=== PATIENT | female | born 1940 | race Caucasian/White ===

== ENCOUNTER 2020-04-17 09:00 | Outpatient (REF) | payer MEDICARE, SELFPAY | END 2020-04-17 09:01 | disposition home or self-care (01) | LOC: HO.HAP 09:00 | PROVIDERS: Visit Provider Internal Medicine | DX: Z46.1 Encounter for fitting and adjustment of hearing aid (principal) | CPT/HCPCS: 92593; 99499 ==

== ENCOUNTER 2020-07-10 09:00 | Outpatient (REF) | payer MEDICARE, SELFPAY ==
--- NOTE | 2020-07-10 11:16 | MHC.AU.P13 ---
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 Previous Hearing Test Results: Symmetrical normal hearing thresholds at 250-1000 Hz dropping to a severe high frequency sensorineural hearing loss bilaterally with 92% speech understanding for the right ear and 96% for the left ear at 60 dB HL for both ears. Medical History: Medical History: Diabetes Heart Problems High Blood Pressure Medical History: Since tested in 2019, Zoey reports she has one ablation and 2 cardiversion procedures performed. Medication List: Amiodarone, Colace, Eliquis, Furosemide, Glipizide, Ramipril, Rosuvastatin, Vitamin B-12 Hearing Instrument History- Right Ear: Workers Compensation Manager: Phonak Model: Audejaja.tv [id number] Serial Number: [id number] Battery Size: 312 Warranty: 06/23/2022 Service Plan: Repair and L&D Dispensed By: [facility] Date of Fittin03/28/2019 Hearing Instrument History- Left Ear: Workers Compensation Manager: [employer]ria Systemsak Model: Pathway Lendingeo [id number] Serial Number: [id number] Battery Size: 312 Warranty: 06/23/2022 Service Plan: Repair and L&D Dispensed By: [facility] Date of Fittin03/28/2019 Otoscopy: Right Ear: Unremarkable Left Ear: Unremarkable Tympanometry: Right Ear: Normal Middle Ear System (Type A) Left Ear: Hypercompliant Middle Ear System (Type Ad) Hearing Evaluation: Transducer(s) Used: Insert Earphones Bone Conduction Method: Conventional Audiometry Stimuli Used: Pure Tones Right Ear: Description of Hearing: Normal/borderline normal hearing thresholds at 250-1000 Hz dropping to a severe high frequency sensorineural hearing loss. Left Ear: Description of Hearing: Normal/borderline normal thresholds at 250-1000 Hz dropping to a severe high frequency sensorineural hearing loss Speech Recognition Threshold (SRT): Method Used: Monitored Live Voice Stimuli Used: Spondee Words Right Ear: 30 dB HL Left Ear: 20 dB HL Word Discrimination: Method: Recorded Lists Word Lists Used: NU-6 Right Ear: 96% at 70 dB HL Left Ear: 92% at 60 dB HL Comparison: Compared to most recent evaluation: Right ear thresholds have decreased approximately 10 dB Left ear thresholds overall stable Recommendations: Recommendations: Audiological re-evaluation in one year. Hearing aid(s) reprogrammed with updated test results. Diagnosis: Primary Diagnosis: H90.3 Bilateral Sensorineural Hearing Loss Services Performed: Services Performed: Comprehensive Audiological Evaluation (CPT 20063) Tympanometry (CPT 79048) Signature: Provider: Jan Barrera, RONN-A
== END 2020-07-10 09:01 | disposition home or self-care (01) ==
LOC: HO.SH 09:00
PROVIDERS: Visit Provider Internal Medicine
DX: H90.3 Sensorineural hearing loss, bilateral (principal)
CPT/HCPCS: 92557; 92567

== ENCOUNTER 2020-08-26 14:22 | Outpatient (REF) | payer MEDICARE, SELFPAY | END 2020-08-26 14:23 | disposition home or self-care (01) | LOC: HO.HAP 14:22 | PROVIDERS: Visit Provider Internal Medicine | DX: Z13.89 Encounter for screening for other disorder (principal) ==

== ENCOUNTER 2021-03-26 15:40 | Emergency (ER) | payer MEDICARE, SELFPAY ==
--- NOTE | ~2021-03-26 | XR_ITS ---
EXAMINATION: XR KNEE, RIGHT CLINICAL INFORMATION: Injury, twisted knee COMPARISON: None TECHNIQUE: Four views of the right knee. FINDINGS: Bone alignment is normal. No fracture or dislocation is seen. There is arthritis at the medial femoral tibial and patellofemoral joints with joint space narrowing and osteophyte formation. There is a moderate to large joint effusion. XR/XR knee RT 3V IMPRESSION: Arthritis and joint effusion.
[2021-03-26 15:54] VITALS: BP 148/72; BP 151/67; PULSE 70; PULSE 71; RESP 16; TEMP 36.2; O2SAT 97; O2SAT 98; BMI 31.3
--- NOTE | 2021-03-26 16:18 | ED.LOWEXIN ---
HPI - Extremity Injury (Lower) General Chief Complaint: Extremity Injury, Lower <Manju Lemonsdb MICHEL - Last Filed: 03/26/21 21:12> Stated Complaint: r knee pain <Manju Lemonsdb ACCOUNTING MACHINE SERVICERKAYLA - Last Filed: 03/26/21 21:12> Time Seen by Provider: 03/26/21 16:13 <Manju D DominiqueCHUCK aceKAYLA - Last Filed: 03/26/21 21:12> Source: patient <Manju Fox MICHEL - Last Filed: 03/26/21 21:12> Mode of arrival: EMS <Manju Lemonsdb MICHEL - Last Filed: 03/26/21 21:12> Limitations: no limitations <Manju Lemonsdb MICHEL - Last Filed: 03/26/21 21:12> History of Present Illness HPI Narrative: 80-year-old female with past medical history of diabetes, atrial fibrillation, hypertension, hyperlipidemia is here today after sustaining right knee injury. Patient reports that she was trying to get out of bed and she twisted her right leg at her knee patient denies falling, denies any other injury. She was trying to ice the area for few hours. Two extra-strength Tylenol for pain. Denies falling. <Manju Lemonsdb MICHEL - Last Filed: 03/26/21 21:12> Related Data Home Medications: Home Medications Medication Instructions Recorded Confirmed amiodarone 200 mg tablet 100 mg PO DAILY 03/26/21 03/26/21 apixaban 5 mg tablet (Eliquis) 1 tab PO BID 03/26/21 03/26/21 cyanocobalamin (vitamin B-12) 500 500 mcg PO DAILY 03/26/21 03/26/21 mcg lozenges (Vitamin B-12) docusate sodium 100 mg capsule 100 mg PO DAILY PRN 03/26/21 03/26/21 (Colace) eszopiclone 2 mg tablet 1 tab PO BEDTIME 03/26/21 03/26/21 furosemide 20 mg tablet 1 tab PO DAILY 03/26/21 03/26/21 furosemide 40 mg tablet 1 tab PO DAILY 03/26/21 03/26/21 glipizide 2.5 mg tablet, extended 1 tab PO DAILY 03/26/21 03/26/21 release 24 hr ramipril 2.5 mg capsule 1 cap PO DAILY 03/26/21 03/26/21 rosuvastatin 5 mg tablet 1 tab PO DAILY 03/26/21 03/26/21 <MICHEL Quinn - Last Filed: 03/26/21 21:12> Allergies/Adverse Reactions: Allergies Allergy/AdvReac Type Severity Reaction Status Date / Time meperidine [From DEMEROL] Allergy Unknown RASH Unverified 03/12/20 17:56 metformin [METFORMIN] Allergy Unknown DIARRHEA Unverified 03/12/20 17:56 demerol Allergy Unknown itching Uncoded 09/10/19 00:00 metformin Allergy Unknown vomiting Uncoded 09/10/19 00:00 <MICHEL Quinn - Last Filed: 03/26/21 21:12> Review of Systems Review of Systems: Constitutional : No Weight loss, No Fever, No Chills, No Night Sweats, No Fatigue, No Malaise ENT/Mouth : No Hearing loss, No Ear Pain, No Nasal Congestion, No Sinus Pain, No Hoarseness, No sore throat, No Rhinorrhea, No Swallowing Difficulty Eyes: No Eye Pain, No Swelling, No Redness, No Foreign Body, No Discharge, No Vision Changes Cardiovascular : No Chest Pain, No SOB, No Dyspnea on Exertion, No Orthopnea, No Edema, No Palpitations Respiratory : No Cough, No Sputum, No Wheezing, No Smoke Exposure, No Dyspnea Gastrointestinal : No Nausea, No Vomiting, No Diarrhea, No Constipation, No abdominal Pain, No Hematochezia, No Melena Genitourinary : no irregular bleeding, No Dysuria, No Urinary Frequency, No Hematuria, No Urinary Incontinence, No Urgency, No Flank Pain, No Urinary Flow Changes, No Hesitancy Musculoskeletal : No joint pain, No Myalgias, No Joint Swelling Skin : No Skin Lesions, No rash Neuro : No Weakness, No Numbness, No Paresthesias, No Loss of Consciousness, No Dizziness, No Headache <MICHEL Quinn - Last Filed: 03/26/21 21:12> Yes all other systems are reviewed and are negative <MICHEL Quinn - Last Filed: 03/26/21 21:12> PMFSH Past Medical History Medical History: Medical History (Updated 03/26/21 @ 21:11 by MICHEL Quinn) Afib Diabetes HTN (hypertension) <MICHEL Quinn - Last Filed: 03/26/21 21:12> Social History Social History: Social History Advance Directives: No Advance Directives Information Provided: No <MICHEL Quinn - Last Filed: 03/26/21 21:12> Physical Exam Vital Signs: Vital Signs: Last Vital Signs Temp 98.7 F 03/27/21 00:52 Pulse 76 03/27/21 05:56 Resp 16 03/27/21 05:56 BP 133/43 L 03/27/21 05:56 Pulse Ox 94 03/27/21 05:56 Body Mass Index 31.3 <MICHEL Quinn - Last Filed: 03/26/21 21:12> Vital Signs: Last Vital Signs Temp 98.7 F 03/27/21 00:52 Pulse 76 03/27/21 05:56 Resp 16 03/27/21 05:56 BP 133/43 L 03/27/21 05:56 Pulse Ox 94 03/27/21 05:56 Body Mass Index 31.3 <Cuca Figueroa DO - Last Filed: 03/27/21 07:20> Const: General: healthy appearing, no acute distress and well developed <MICHEL Quinn - Last Filed: 03/26/21 21:12> Nutritional Appearance: well nourished <MICHEL Quinn - Last Filed: 03/26/21 21:12> Orientation/consciousness: patient oriented x3 <MICHEL Quinn - Last Filed: 03/26/21 21:12> HENMT: Head: Yes normal to inspection, Yes normocephalic and Yes atraumatic <MICHEL Quinn - Last Filed: 03/26/21 21:12> Neck: Neck: Yes normal visual inspection, Yes full ROM and Yes trachea midline <MICHEL Quinn - Last Filed: 03/26/21 21:12> Thyroid: Thyroid normal <MICHEL Quinn - Last Filed: 03/26/21 21:12> Resp: Effort & Inspection: normal respiratory effort and able to speak in complete sentences <MICHEL Quinn - Last Filed: 03/26/21 21:12> Auscultation: clear to auscultation bilaterally <MICHEL Quinn - Last Filed: 03/26/21 21:12> Cardio: Rate: regular rate <MICHEL Quinn - Last Filed: 03/26/21 21:12> Rhythm: regular rhythm <MICHEL Quinn - Last Filed: 03/26/21 21:12> GI: Inspection: Yes normal to inspection and No distended <MICHEL Quinn - Last Filed: 03/26/21 21:12> Palpation (GI): No hepatosplenomegaly present <MICHEL Quinn - Last Filed: 03/26/21 21:12> Auscultation: normal bowel sounds <MICHEL Quinn - Last Filed: 03/26/21 21:12> Skin: General skin exam: elasticity normal, turgor normal and dry skin <MICHEL Quinn - Last Filed: 03/26/21 21:12> Neuro: General: patient oriented x3 <MICHEL Quinn - Last Filed: 03/26/21 21:12> Extrem: General: Yes normal to inspection, Yes full ROM and Yes capillary refill normal <MICHEL Quinn - Last Filed: 03/26/21 21:12> Course Course Course Narrative: 80-year-old female with past medical history of diabetes, AFib, hypertension, hyperlipidemia is here today after sustaining injury to her right knee. Patient reports that she was trying to get out of bed to go to the bathroom and she twisted her right leg. Patient reports that she is unable to bear any weight. Upon exam patient has normal passive ROM to her right knee. Reports pain and unable to stand up on her right leg. Will do x-ray and medicate her for pain. <CHUCK Quinn-PETRA Last Filed: 03/26/21 21:12> Reevaluation(s) Reevaluation #1: Right knee x-ray IMPRESSION: Arthritis and joint effusion. Will have patient to trial walk. If she is able we will send her back, however if she is unable to walk will have her be evaluated by physical therapy in the morning for short-term rehab. Case Management is aware <CHUCK QuinnKAYLA - Last Filed: 03/26/21 21:12> Reevaluation #2: Tried ambulating patient and patient has too much pain will place Keaton wrap and patient will see case management, order for PT eval placed. Patient needs to have medication reconciled so she can get her medication while she is waiting for PT eval. Patient was placed recliner. She is agreeable to this and is willing to go to short-term rehab. Report given to Dr. Whitlock <CHUCK QuinnPETRA - Last Filed: 03/26/21 21:12> MDM - Extremity Injury (Lower) Imaging Data R knee pain: Attestation: I personally reviewed and interpreted this imaging study as follows: <MICHEL Quinn Last Filed: 03/26/21 21:12> Radiologist's impression: FINDINGS: Bone alignment is normal. No fracture or dislocation is seen. There is arthritis at the medial femoral tibial and patellofemoral joints with joint space narrowing and osteophyte formation. There is a moderate to large joint effusion.? <CHUCK Quinn-PETRA - Last Filed: 03/26/21 21:12> Discharge Plan Discharge Clinical Impression: Effusion of knee joint right <CHUCK Quinn-PETRA Last Filed: 03/26/21 21:12> Prescriptions: No [facility] furosemide 40 mg tablet 1 tab PO DAILY RF: 0 amiodarone 200 mg tablet 100 mg PO DAILY RF: 0 glipizide 2.5 mg tablet extended release 24hr 1 tab PO DAILY RF: 0 ramipril 2.5 mg capsule 1 cap PO DAILY RF: 0 docusate sodium [Colace] 100 mg Capsule 100 mg PO DAILY PRN (Reason: Constipation) RF: 0 furosemide 20 mg tablet 1 tab PO DAILY RF: 0 rosuvastatin 5 mg tablet 1 tab PO DAILY RF: 0 eszopiclone 2 mg tablet 1 tab PO BEDTIME RF: 0 cyanocobalamin (vitamin B-12) [Vitamin B-12] 500 mcg Lozenge 500 mcg PO DAILY RF: 0 Eliquis 5 mg tablet 1 tab PO BID RF: 0 <MICHEL Quinn - Last Filed: 03/26/21 21:12> Referrals: Moshe Snider MD [Primary Care Provider] - 2 days <MICHEL Quinn - Last Filed: 03/26/21 21:12>
[2021-03-26] MEDS: oxyCODONE HCl Immed Release 5 MG TABLET PO ×2 (16:25→22:47)
--- NOTE | 2021-03-26 18:15 | PC.NURSE ---
pt unable to ambulate do to pain and living alone plan will be for case management to get involved and have pt eval by PT/OT.
--- NOTE | 2021-03-26 18:44 | PHA.MEDREC ---
Pharmacy Consult ? Medication Reconciliation Pharmacy has completed the medication reconciliation spoke with patient in [facility]. Pt had list of medications. patient takes 1/2 tablet of amiodarone 200 mg daily.
--- NOTE | 2021-03-26 21:50 | MHC.CM.ED ---
CM met with this kyle woman, A&Ox3, very pleasant and independent. Pt lives alone in independent living at [facility]. 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 Pt has no services and occasionally uses a cane/rollator. PT evaluation is pending. Pt slipped and is unable to bear weight on her R leg secondary to knee pain. Pt is agreeable to [facility], [facility]2 [facility] and #3 [facility]. Pt will NOT go to [facility]. HCP on file. HCP/friend Sister Annalise Tovar ([phone]) and the alternate HCP/sister is Odalispola Oshea ([phone]). Referrals have been placed. CM to follow for d/c needs.
--- NOTE | 2021-03-26 22:41 | PC.NURSE ---
PER DR KAPLAN PT MAY GET 1 X DOSE OF OXYCODONE 5MG IT WAS EFFECT DURING HER LAST DOSE. PT REQUESTING TO HOLD HER PM SLEEPING PILL AND WANT PAIN MED INSTEAD.
[2021-03-26] MEDS: Apixaban 5 MG TABLET PO (22:48)
[2021-03-26 23:36] VITALS: BP 131/68; PULSE 70; RESP 14; O2SAT 97
--- NOTE | 2021-03-27 00:39 | PC.NURSE ---
PT MOVED OVER TO MAIN ED REQUESTING TO SLEEP IN RECLINER CHAIR REPORT GIVEN TO MARION RUANO.
[2021-03-27 00:52] VITALS: BP 138/46; PULSE 71; TEMP 37.1; O2SAT 93
[2021-03-27 05:56] VITALS: BP 133/43; PULSE 76; RESP 16; O2SAT 94
[2021-03-27] MEDS: Apixaban 5 MG TABLET PO (08:34)
[2021-03-27] MEDS: Acetaminophen 325 MG TABLET 650 MG PO (08:34)
[2021-03-27] MEDS: Atorvastatin Calcium 20 MG TABLET PO (08:34)
[2021-03-27] MEDS: Amiodarone HCL 200 MG TABLET 100 MG PO (08:34)
[2021-03-27] MEDS: lisinopriL 10 MG TABLET PO (08:35)
[2021-03-27] MEDS: Furosemide 20 MG TABLET PO (08:35)
[2021-03-27] MEDS: Furosemide 40 MG TABLET PO (08:35)
[2021-03-27 08:38] VITALS: BP 124/42; PULSE 75; RESP 15; O2SAT 95
[2021-03-27] MEDS: glipiZIDE XL 2.5 MG TAB.ER.24 PO (09:15)
[2021-03-27] MEDS: Cyanocobalamin (Vitamin B-12) 500 MCG TABLET PO (09:15)
--- NOTE | 2021-03-27 11:07 | MHC.CM.ED ---
Pt has been accepted to [facility] per MARION Cohen at facility. Pt aware and in agreement with dc plan: [facility] booked for 2pm p/u. ED staff aware of transfer. Pt will be in bed 1 at the [facility].
--- NOTE | 2021-03-27 11:18 | PC.NURSE ---
Assumed care of patient at 7am this morning. Pt sitting in a chair, which is more comfortable for the patient due to right knee swelling. Pt at breakfast and tolerated PO intake well. Pt given morning medications. PT worked with the pt and she is able to ambulate with a walker short distances. Pt brought to the bathroom multiple times. Pt has been cleared to go to [facility] today at 2pm.
[2021-03-27 13:18] VITALS: BP 109/50; PULSE 78; RESP 15; TEMP 37.1; O2SAT 97
[2021-03-27 16:56] VITALS: BP 134/54; PULSE 76; RESP 20; TEMP 37; O2SAT 97
--- NOTE | 2021-03-27 18:05 | PC.NURSE ---
EMS is here for transport to [facility]. Pt able to eat dinner first. Report given earlier to MARION.
== END 2021-03-27 18:07 | disposition skilled nursing facility (03) ==
PROVIDERS: Emergency Provider Emergency Medicine Emergency Medical Services; PCP Internal Medicine
DX: S89.91XA Unspecified injury of right lower leg, initial encounter (principal); M79.604 Pain in right leg; E11.9 Type 2 diabetes mellitus without complications; I10 Essential (primary) hypertension; X50.1XXA Overexertion from prolonged static or awkward postures, initial encounter; Y93.9 Activity, unspecified; Y92.9 Unspecified place or not applicable; Y99.9 Unspecified external cause status; Z79.899 Other long term (current) drug therapy
CPT/HCPCS: 73562; 97161; 99284; 99285

== ENCOUNTER 2021-05-23 23:39 | Inpatient (IN) | payer MEDICARE, SELFPAY ==
--- NOTE | ~2021-05-23 | XR_ITS ---
EXAMINATION: XR LUMBAR SPINE XR PELVIS CLINICAL INFORMATION: History of fall COMPARISON: Radiograph of pelvis/hip from 09/02/2019 TECHNIQUE: Lumbar spine, 3 views Pelvis, AP view FINDINGS: Lumbar spine: The lumbar vertebra have well preserved height and alignment. No acute fracture or subluxation. There is mild narrowing of disc space at L5-S1. There appears to be moderate to severe facet arthropathy at L4-L5 and L5-S1. Sacrum and sacroiliac joints are intact. Bilateral ureteral stents in place. Bowel gas pattern is normal. Pelvis: The osseous pelvic ring is intact. Alignment is maintained at the pubic symphysis, hips and sacroiliac joints. The sacrum is partially obscured by bowel gas and fecal material. No overt sacral fracture. No diastases and sacroiliac joints. Old healed fractures of left pubic rami. No acute fractures. The articular cartilage space of each hip is maintained. The alignment is normal at each hip. No proximal femoral fracture. XR/XR pelvis 1-2V IMPRESSION: * No acute abnormalities in the degenerated spine. The lumbar vertebra have well preserved height and alignment. * Old, healed fractures of the left pubic rami.
--- NOTE | ~2021-05-23 | XR_ITS ---
EXAMINATION: XR CHEST CLINICAL INFORMATION: Follow-up pneumonia COMPARISON: Chest CT on 05/24/2021 TECHNIQUE: 2 views of the chest were obtained. FINDINGS: Lung volumes are significantly diminished. There are trace bilateral pleural effusions. No significant change in the bilateral airspace opacities predominantly in the right upper lobe and left lower lobe. XR/XR chest 2V IMPRESSION: No significant change.
--- NOTE | ~2021-05-23 | CT_ITS ---
EXAMINATION: NONCONTRAST HEAD CT NONCONTRAST CERVICAL SPINE CT INDICATION INFORMATION: Fall, pain COMPARISON: None TECHNIQUE: Separate noncontrast CT examinations of the head and cervical spine were performed. Coronal head CT images and coronal and sagittal cervical spine images were created at the technologist workstation. DLP: 1886 mGy-cm DOSE LOWERING TECHNIQUES: This CT examination was performed using dose optimization techniques as appropriate, variously including the following: - Automated exposure control - Adjustment of mA and/or kV according to patient size (this includes techniques or standardized protocols for targeted exams were dose is matched to indication/reason for exam; i.e. extremities or head) - Use of iterative reconstruction technique FINDINGS: Head: Limited evaluation in some regions due to motion artifact. There is no appreciable evidence of acute intracranial hemorrhage or territorial infarction. No abnormal mass-effect or midline shift is seen. Mckeon to white matter differentiation is well preserved. No extra-axial fluid collections are identified. The ventricles are normal in size. There is mild periventricular white matter hypoattenuation consistent with chronic small vessel ischemic disease. The osseous structures and soft tissues are normal. The mastoid air cells and visualized portions of the paranasal sinuses are well-aerated. Cervical spine: Limited evaluation throughout the cervical spine due to motion artifact There is anatomic alignment of the vertebral bodies and posterior elements. Vertebral body heights are maintained. Intervertebral disc spaces are relatively well preserved. There is mild to moderate bilateral facet arthropathy. No appreciable acute fracture. No prevertebral soft tissue swelling. Visualized portions of the lung apices demonstrate bilateral opacities which will be better assessed on dedicated chest CT. The thyroid gland is unremarkable. CT/CT cervical spine wo con IMPRESSION: Limited evaluation of the head and cervical spine due to motion artifact. No definite acute findings identified.
--- NOTE | ~2021-05-23 | XR_ITS ---
EXAMINATION: XR LUMBAR SPINE XR PELVIS CLINICAL INFORMATION: History of fall COMPARISON: Radiograph of pelvis/hip from 09/02/2019 TECHNIQUE: Lumbar spine, 3 views Pelvis, AP view FINDINGS: Lumbar spine: The lumbar vertebra have well preserved height and alignment. No acute fracture or subluxation. There is mild narrowing of disc space at L5-S1. There appears to be moderate to severe facet arthropathy at L4-L5 and L5-S1. Sacrum and sacroiliac joints are intact. Bilateral ureteral stents in place. Bowel gas pattern is normal. Pelvis: The osseous pelvic ring is intact. Alignment is maintained at the pubic symphysis, hips and sacroiliac joints. The sacrum is partially obscured by bowel gas and fecal material. No overt sacral fracture. No diastases and sacroiliac joints. Old healed fractures of left pubic rami. No acute fractures. The articular cartilage space of each hip is maintained. The alignment is normal at each hip. No proximal femoral fracture. XR/XR lumbar spine 2-3V IMPRESSION: * No acute abnormalities in the degenerated spine. The lumbar vertebra have well preserved height and alignment. * Old, healed fractures of the left pubic rami.
--- NOTE | ~2021-05-23 | CT_ITS ---
EXAMINATION: CT CHEST WITHOUT CONTRAST CLINICAL INFORMATION: Fall, pain COMPARISON: Chest x-ray 07/05/2011 TECHNIQUE: Multidetector volumetric CT imaging of the chest was done. Axial MIP volume rendering provided. Sagittal and coronal reformatted images were obtained. This CT examination was performed using dose optimization techniques as appropriate, variously including the following: *Automated exposure control *Adjustment of mA and/or kV according to patient size (this includes techniques or standardized protocols for targeted exams where dose is matched to indication/reason for exam; i.e. extremities or head) *Use of iterative reconstruction technique DLP: 1886 mGy-cm FINDINGS: LUNGS: There is significantly limited detailed evaluation of the lung parenchyma due to respiratory motion artifact. There are multifocal patchy regions of opacity bilaterally most extensively in the bilateral upper lobes and superior left lower lobe. MEDIASTINUM: Thyroid gland is grossly unremarkable. Moderate-sized hiatal hernia is suspected. No discrete mediastinal lymphadenopathy is seen, though assessment is limited due to motion and lack of intravenous contrast. Cardiac size is within normal limits; no pericardial effusion. There is scattered calcification along the aorta. PLEURA: Trace right pleural effusion is suspected. Limited assessment for pneumothoraces in the setting of extensive motion artifact. AXILLA: No lymphadenopathy. UPPER ABDOMEN: Significantly limited evaluation due to extensive motion artifact. Cholelithiasis is suspected. OSSEOUS STRUCTURES: Significantly limited assessment for fractures due to extensive motion artifact. Degenerative changes are noted in the spine. CT/CT chest wo con IMPRESSION: Limited evaluation due to extensive motion artifact. Multifocal bilateral pulmonary opacities could be due to infection or aspiration in the proper clinical setting. Trace right pleural effusion. Fleischner guidelines were followed.
--- NOTE | ~2021-05-23 | US_ITS ---
EXAMINATION: US RETROPERITONEAL LIMITED (RENAL ONLY) CLINICAL INFORMATION: Urinary tract infection; recent hydronephrosis. COMPARISON: None TECHNIQUE: Real-time imaging of the kidneys. Color Doppler exam used. FINDINGS: Limited views of left kidney. Patient terminated study before complete exam. RIGHT KIDNEY: 10.1 x 5.6 x 5.5 cm (SAG x AP x TRV). The kidney is normal in size, contour, and echogenicity. Renal cortical thickness is normal. No renal calculi or hydronephrosis. 7 mm cortical cyst midpole right kidney. No follow-up imaging is recommended for simple renal cyst. LEFT KIDNEY: 9.9 x 5.7 x 5.8 cm (SAG x AP x TRV). The kidney is normal in size, contour, and echogenicity. Renal cortical thickness is normal. No renal calculi or focal parenchymal lesions. US/US renal BI IMPRESSION: Normal ultrasound of the kidneys..
[2021-05-24] VITALS (11 sets, daily range): BP systolic 111–153; BP diastolic 58–84; PULSE 69–100; RESP 14–23; TEMP 36–37.1; O2SAT 91–100; BMI 30.1
--- NOTE | 2021-05-24 00:40 | ED_ITS ---
HPI - Fall General Chief Complaint: Fall Stated Complaint: unwitnessed fall, probable head strike Time Seen by Provider: 05/24/21 00:25 Source: patient Mode of arrival: EMS History of Present Illness HPI Narrative: 80-year-old female is brought in by EMS from [facility] for an unwitnessed fall. Staff states that they heard the bed alarm go off and then found patient on the ground. On questioning the patient she states she is unclear what happened and denies loss of consciousness. Patient does states that she hit her head and on review of medication list appears to be on blood thinners. Related Data Home Medications Medication Instructions Recorded Confirmed amiodarone 200 mg tablet 100 mg PO DAILY 03/26/21 05/24/21 cyanocobalamin (vitamin B-12) 500 500 mcg PO DAILY 03/26/21 05/24/21 mcg lozenges (Vitamin B-12) docusate sodium 100 mg capsule 100 mg PO DAILY PRN 03/26/21 05/24/21 (Colace) eszopiclone 2 mg tablet 1 tab PO BEDTIME 03/26/21 05/24/21 furosemide 40 mg tablet 1 tab PO DAILY 03/26/21 05/24/21 ramipril 2.5 mg capsule 1 cap PO DAILY 03/26/21 05/24/21 rosuvastatin 5 mg tablet 1 tab PO DAILY 03/26/21 05/24/21 bumetanide 1 mg tablet 1 mg PO DAILY 05/24/21 05/24/21 Allergies Allergy/AdvReac Type Severity Reaction Status Date / Time meperidine [From DEMEROL] Allergy Unknown RASH Unverified 03/12/20 17:56 metformin [METFORMIN] Allergy Unknown DIARRHEA Unverified 03/12/20 17:56 demerol Allergy Unknown itching Uncoded 09/10/19 00:00 metformin Allergy Unknown vomiting Uncoded 09/10/19 00:00 Review of Systems Review of Systems: Pertinent positives and negatives as stated in HPI 10 point review of systems is otherwise negative. [facility] Past Medical History Source: nursing notes reviewed Medical History Afib Diabetes HTN (hypertension) Social History Social History Patient Tobacco Use Status: Tobacco use Unknown Advance Directives: No Physical Exam Vital Signs: Vital Signs: Last Vital Signs Temp 97.9 F 05/24/21 00:04 Pulse 85 05/24/21 00:04 Resp 18 05/24/21 00:04 BP 124/64 05/24/21 00:04 Pulse Ox 98 05/24/21 00:04 Body Mass Index 30.1 VITAL SIGNS: Reviewed. GENERAL: Well developed, well nourished, in no acute distress. HEAD: Normocephalic/atraumatic EYES: PERRLA, EOMI OROPHARYNX: no oral lesions noted, posterior pharynx clear, dry mucous NECK: C-collar in place, no tenderness to palpation at midline cervical spine LUNGS: Normal breath sounds. No adventitious sounds or accessory muscle use. SpO2<98> on nasal cannula, no chest wall tenderness CARDIOVASCULAR: Regular rate and rhythm without noted murmurs, no JVD or 2+ pitting bilat lower extremity edema. ABDOMEN: Soft, non-tender, non-distended with bowel sounds. No rigidity. No guarding. No palpable masses or hernias noted RUBINA: reddish brown stool, soft, no melena PELVIS: Patient denies any pain on manipulation of the pelvis MUSCULOSKELETAL: No tenderness, deformities, or effusions noted on gross inspection. EXTREMITIES: No cyanosis, clubbing or edema. SKIN: Inspection of the skin reveals no rashes NEUROLOGIC: Alert and oriented x 2. Strength and sensation to light touch were grossly intact x 4. Course Course Course Narrative: 80-year-old female with history and clinical presentation anticoagulation use and being brought in for unwitnessed fall. Limited recent documentation but lab work significant for CHF/diabetic/cardiac medications. Review of all investigations significant for anemia with guaiac-positive, CHF exacerbation for which patient will receive Lasix, sepsis with positive UTI as well as questionable infiltrates on CT of the chest. Patient received Zosyn. This case was discussed with the inpatient hospitalist who accepts admission. MDM - Fall Lab Data Result diagrams: 05/24/21 01:11 05/24/21 01:11 Labs: Lab Results 05/24/21 05/24/21 05/24/21 Range/Units 01:11 01:11 01:11 WBC 14.3 H (4.8-10.8) X10*3/uL RBC 2.83 L (4.20-5.50) X10*6/uL Hgb 7.5 L (12.0-16.0) g/dl Hct 26.0 L (37.0-47.0) % MCV 91.9 (80.0-98.0) fL MCH 26.5 L (27.0-33.0) pg MCHC 28.8 L (31.0-35.0) g/dl RDW 16.6 H (11.0-16.0) % Plt Count 304 (160-400) X10*3/uL MPV 8.7 L (9.4-12.3) fL Immature Gran % (Auto) 1.6 H (0.0-0.4) % Neut % (Auto) 63.7 (45-73) % Lymph % (Auto) 29.4 (20-40) % [place] % (Auto) 5.1 (2-11) % Eos % (Auto) 0.1 (0-4) % Baso % (Auto) 0.1 (0-2) % Lymph # (Auto) 4.2 (1.2-4.9) X10*3/uL [place] # (Auto) 0.7 (0.1-1.2) X10*3/uL Eos # (Auto) 0.0 (0.0-0.4) X10*3/uL Baso # (Auto) 0.0 (0.0-0.2) X10*3/uL Abs Immat Gran (auto) 0.23 H (0.00-0.03) X10*3/uL Absolute Neuts (auto) 9.1 H (2.0-8.3) x10*3/uL Absolute Nucleated RBC 0.000 (0.0-0.012) X10*3/uL Nucleated RBC % (auto) 0.0 (0.0-0.2) /100WBC PT 14.7 H (9.9-13.0) SEC INR 1.3 H (0.9-1.1) Sodium 147 H (135-145) mmol/L Potassium 4.0 (3.3-5.1) mmol/L Chloride 101 (96-108) mmol/L Carbon Dioxide 34 H (22-29) mmol/L Anion Gap 16 (12-20) BUN 24 H (9-16) mg/dL Creatinine 0.82 (0.5-1.4) mg/dL Estim Creat Clear Calc 51.9 Estimated GFR > 60 Random Glucose 210 H (60-115) mg/dL Calcium 7.9 L (8.4-10.2) mg/dL Total Bilirubin 0.4 (0.0-1.0) mg/dL AST 13 (5-31) U/L ALT 14 (0-31) U/L Alkaline Phosphatase 109 (39-117) U/L B-Natriuretic Peptide (<100) pg/mL Total Protein 4.8 L (6.5-8.0) g/dL Albumin 2.6 L (3.5-5.0) g/dL Urine Color Urine Appearance Urine pH (5.0-8.0) Ur Specific [place] (1.005-1.025) Urine Protein (NEG-TRACE) MG/DL Urine Glucose (UA) (NEG) MG/DL Urine Ketones (NEG) MG/DL Urine Blood (NEG) Urine Nitrite (NEG) Ur Leukocyte Esterase (NEG) Urine RBC (0) /HPF Urine WBC (0-4) /HPF Ur Squamous Epith Cells /LPF Urine Bacteria /LPF Stool Occult Blood (NEGATIVE) COVID-19 (CHARLES) (Negative) COVID-19 Clin Com Blood Type Antibody Screen 05/24/21 05/24/21 05/24/21 Range/Units 01:11 02:30 02:32 WBC (4.8-10.8) X10*3/uL RBC (4.20-5.50) X10*6/uL Hgb (12.0-16.0) g/dl Hct (37.0-47.0) % MCV (80.0-98.0) fL MCH (27.0-33.0) pg MCHC (31.0-35.0) g/dl RDW (11.0-16.0) % Plt Count (160-400) X10*3/uL MPV (9.4-12.3) fL Immature Gran % (Auto) (0.0-0.4) % Neut % (Auto) (45-73) % Lymph % (Auto) (20-40) % [place] % (Auto) (2-11) % Eos % (Auto) (0-4) % Baso % (Auto) (0-2) % Lymph # (Auto) (1.2-4.9) X10*3/uL [place] # (Auto) (0.1-1.2) X10*3/uL Eos # (Auto) (0.0-0.4) X10*3/uL Baso # (Auto) (0.0-0.2) X10*3/uL Abs Immat Gran (auto) (0.00-0.03) X10*3/uL Absolute Neuts (auto) (2.0-8.3) x10*3/uL Absolute Nucleated RBC (0.0-0.012) X10*3/uL Nucleated RBC % (auto) (0.0-0.2) /100WBC PT (9.9-13.0) SEC INR (0.9-1.1) Sodium (135-145) mmol/L Potassium (3.3-5.1) mmol/L Chloride (96-108) mmol/L Carbon Dioxide (22-29) mmol/L Anion Gap (12-20) BUN (9-16) mg/dL Creatinine (0.5-1.4) mg/dL Estim Creat Clear Calc Estimated GFR Random Glucose (60-115) mg/dL Calcium (8.4-10.2) mg/dL Total Bilirubin (0.0-1.0) mg/dL AST (5-31) U/L ALT (0-31) U/L Alkaline Phosphatase (39-117) U/L B-Natriuretic Peptide 441 H (<100) pg/mL Total Protein (6.5-8.0) g/dL Albumin (3.5-5.0) g/dL Urine Color YELLOW Urine Appearance TURBID Urine pH 7.0 (5.0-8.0) Ur Specific [place] 1.020 (1.005-1.025) Urine Protein 2+ H (NEG-TRACE) MG/DL Urine Glucose (UA) NEG (NEG) MG/DL Urine Ketones 5 (NEG) MG/DL Urine Blood 3+ H (NEG) Urine Nitrite POS H (NEG) Ur Leukocyte Esterase 2+ H (NEG) Urine RBC 50-75 H (0) /HPF Urine WBC TNTC H (0-4) /HPF Ur Squamous Epith Cells 1+ /LPF Urine Bacteria 4+ /LPF Stool Occult Blood (NEGATIVE) COVID-19 (CHARLES) (Negative) COVID-19 Clin Com Blood Type O Positive Antibody Screen NEGATIVE 05/24/21 05/24/21 Range/Units 02:33 03:04 WBC (4.8-10.8) X10*3/uL RBC (4.20-5.50) X10*6/uL Hgb (12.0-16.0) g/dl Hct (37.0-47.0) % MCV (80.0-98.0) fL MCH (27.0-33.0) pg MCHC (31.0-35.0) g/dl RDW (11.0-16.0) % Plt Count (160-400) X10*3/uL MPV (9.4-12.3) fL Immature Gran % (Auto) (0.0-0.4) % Neut % (Auto) (45-73) % Lymph % (Auto) (20-40) % [place] % (Auto) (2-11) % Eos % (Auto) (0-4) % Baso % (Auto) (0-2) % Lymph # (Auto) (1.2-4.9) X10*3/uL [place] # (Auto) (0.1-1.2) X10*3/uL Eos # (Auto) (0.0-0.4) X10*3/uL Baso # (Auto) (0.0-0.2) X10*3/uL Abs Immat Gran (auto) (0.00-0.03) X10*3/uL Absolute Neuts (auto) (2.0-8.3) x10*3/uL Absolute Nucleated RBC (0.0-0.012) X10*3/uL Nucleated RBC % (auto) (0.0-0.2) /100WBC PT (9.9-13.0) SEC INR (0.9-1.1) Sodium (135-145) mmol/L Potassium (3.3-5.1) mmol/L Chloride (96-108) mmol/L Carbon Dioxide (22-29) mmol/L Anion Gap (12-20) BUN (9-16) mg/dL Creatinine (0.5-1.4) mg/dL Estim Creat Clear Calc Estimated GFR Random Glucose (60-115) mg/dL Calcium (8.4-10.2) mg/dL Total Bilirubin (0.0-1.0) mg/dL AST (5-31) U/L ALT (0-31) U/L Alkaline Phosphatase (39-117) U/L B-Natriuretic Peptide (<100) pg/mL Total Protein (6.5-8.0) g/dL Albumin (3.5-5.0) g/dL Urine Color Urine Appearance Urine pH (5.0-8.0) Ur Specific [place] (1.005-1.025) Urine Protein (NEG-TRACE) MG/DL Urine Glucose (UA) (NEG) MG/DL Urine Ketones (NEG) MG/DL Urine Blood (NEG) Urine Nitrite (NEG) Ur Leukocyte Esterase (NEG) Urine RBC (0) /HPF Urine WBC (0-4) /HPF Ur Squamous Epith Cells /LPF Urine Bacteria /LPF Stool Occult Blood POSITIVE (NEGATIVE) COVID-19 (CHARLES) Negative (Negative) COVID-19 Clin Com See Note Blood Type Antibody Screen ECG Data Attestation: I personally reviewed and interpreted this ECG as follows: Prior ECG tracings: not available for review Interpretation: Sinus rhythm with first-degree AV block, no STEMI, QRS/QTC are within normal limits. Critical Care Time Critical Care Time Critical Care Time: Yes Total Critical Care Time: 30 Attestation: I personally attest to this time spent taking care of the patient. Discharge Plan Discharge Clinical Impression: Sepsis, Acute UTI, Anemia, CHF exacerbation Patient Disposition: Admitted As Inpatient
--- NOTE | 2021-05-24 00:42 | ECG_ITS ---
Test Reason : FALL Blood Pressure : / mmHG Vent. Rate : 086 BPM Atrial Rate : 086 BPM P-R Int : 218 ms QRS Dur : 082 ms QT Int : 286 ms P-R-T Axes : 023 066 -02 degrees QTc Int : 342 ms Sinus rhythm with 1st degree A-V block Nonspecific T wave abnormality Inferior leads Abnormal ECG No previous ECGs available Referred By: Rebeca Valero Electronically Signed By:DOT MCCLOUD MD
[2021-05-24 01:16] LABS: Basophils Percent Auto 0.1 % (0-2); Eosinophils Percent Auto 0.1 % (0-4); Hemoglobin 7.5 g/dl (12.0-16.0); Imm Gran Abs Auto 0.23 X10*3/uL (0.00-0.03); Imm Gran Pct Auto 1.6 % (0.0-0.4); Lymphocytes Absolute Auto 4.2 X10*3/uL (1.2-4.9); Lymphocytes Percent Auto 29.4 % (20-40); MANUAL DIFF FLAG NO; Mean Corpuscular HGB Conc 28.8 g/dl (31.0-35.0); Mean Corpuscular Hemoglobin 26.5 pg (27.0-33.0); Mean Corpuscular Volume 91.9 fL (80.0-98.0); Mean Platelet Volume 8.7 fL (9.4-12.3); Monocytes Absolute Auto 0.7 X10*3/uL (0.1-1.2); Monocytes Percent Auto 5.1 % (2-11); Neutrophils Absolute Auto 9.1 x10*3/uL (2.0-8.3); Neutrophils Percent Auto 63.7 % (45-73); Platelet Count 304 X10*3/uL (160-400); Red Blood Count 2.83 X10*6/uL (4.20-5.50); Red Cell Distribution Width 16.6 % (11.0-16.0); White Blood Count 14.3 X10*3/uL (4.8-10.8)
[2021-05-24 01:22] LABS: INTERNATIONAL NORM RATIO 1.3 (0.9-1.1); Prothrombin Time 14.7 SEC (9.9-13.0)
[2021-05-24 01:41] LABS: Alanine Aminotransferase 14 U/L (0-31); Albumin Level 2.6 g/dL (3.5-5.0); Alkaline Phosphatase 109 U/L (39-117); Anion Gap 16 (12-20); Aspartate Amino Transferase 13 U/L (5-31); Bilirubin Total 0.4 mg/dL (0.0-1.0); Blood Urea Nitrogen 24 mg/dL (9-16); Calcium 7.9 mg/dL (8.4-10.2); Carbon Dioxide 34 mmol/L (22-29); Chloride 101 mmol/L (96-108); Creatinine Clr Calc Pharmacy 51.9; Estimated Glomerular Filt Rate > 60; Glucose Random 210 mg/dL (60-115); Sodium 147 mmol/L (135-145); Total Protein 4.8 g/dL (6.5-8.0)
[2021-05-24 02:43] LABS: Appearance Urine TURBID; Color Urine YELLOW; Glucose Urine UA NEG (NEG); Leukocyte Esterase Urine 2+ (NEG); Nitrite Urine POS (NEG); UACC Culture Trigger YES; Urine Blood 3+ (NEG); Urine Ketones 5 MG/DL (NEG); Urine Protein 2+ MG/DL (NEG-TRACE)
[2021-05-24 02:49] LABS: Bacteria Urine 4+ /LPF; RBC Urine 50-75 /HPF (0); Squamous Epithelial Cell Urine 1+ /LPF; WBC Urine TNTC /HPF (0-4)
[2021-05-24 03:01] LABS: COVID-19 Test Negative (Negative); IDNOW Serial# 9DD0AD1C
[2021-05-24 03:10] LABS: OBS Int Ctl Valid YES; OBS1 POSITIVE (NEGATIVE)
[2021-05-24 03:31] LABS: B Type Natriuretic Peptide 441 pg/mL (<100)
[2021-05-24] MEDS: Piperacillin Sodium/Tazobactam 3.375 GM in 0.9 % Sodium Chloride 50 ML IV ×3 (03:38→21:27)
[2021-05-24] MEDS: 0.9 % Sodium Chloride 1,000 ML 999 ML IV (03:39)
[2021-05-24] MEDS: Furosemide 40 MG/4 ML VIAL IVPUSH (03:41)
--- NOTE | 2021-05-24 03:51 | PC.NURSE ---
Pt resting on stretcher in NAD, aaox3, slightly disoriented to place as she believes she is at another facility but pt is easily redirectable. Pt tachypneic on baseline 3L NC. Pt VSS. Pt endorses SOB, reports this is chronic. Pt reports bilateral knee pain which she reports is chronic. Pt offers no additional complaints of pain/discomfort. Pt medicated per MAR. Merritt Walters RN completed med rec with MAR from [facility]. Pt in position of comfort on stretcher, positioned onto R side with pillow beneath left. Pt with red fall prevention socks, red fall star posted and red fall alert bracelet on. Stretcher in lowest locked position, rails raised, call rodriges within reach.
--- NOTE | 2021-05-24 05:42 | P.HPHOSP_ITS ---
History of Present Illness Date of Service: 05/24/21 Chief Complaint: fall 80-year-old female with a past medical history of hypertension, hyperlipidemia, diabetes, CHF, AFib, anemia, chronic AFib, GERD, recent ad mission to the [facility] on 04/10/2021 for acute blood loss anemia Secondary to GI bleed -discontinued Eliquis, hematuria, obstructive uropathy, UTI, renal stones - discharged on to [facility] rehab center presented to the hospital today with a chief complaint of unwitnessed fall. Also patient's home care nurse from the nursing facility at bedside mentioned that patient was noted to be lately confused. Patient is lying in the bed comfortably, supplemental oxygen in place, alert and awake, pleasantly confused, oriented times 1-2. patient denied any chest pain palpitations, denies any shortness of breath, denies any nausea vomiting diarrhea, denies any abdominal discomfort. Patient unable to recall the event of fall from the bed. Per nurse at bedside patient had a fall, unwitnessed, unknown as the patient was consciousness. Review of all other systems is limited. ER course: Per ER team patient CT head and cervical spine CT showed no acute findings; CT chest showed multifocal pneumonia concern for aspiration. On legs noted to have peripheral edema 3+; urine looks cloudy and urinalysis consistent with UTI. Patient was given Zosyn. Admitted to the hospital for further management. All labs also noted a patient's hemoglobin of 7.5. Stool guaiac was positive. [facility] Medical History (Updated 05/24/21 @ 05:44 by Stanley Natarajan MD) Afib Diabetes HTN (hypertension) Pertinent family history: reviewed Social History Patient Tobacco Use Status: Tobacco use Unknown Advance Directives: No Meds Allergies Allergy/AdvReac Type Severity Reaction Status Date / Time meperidine [From DEMEROL] Allergy Unknown RASH Verified 05/24/21 04:42 metformin [METFORMIN] Allergy Unknown DIARRHEA Verified 05/24/21 04:42 demerol Allergy Unknown itching Uncoded 05/24/21 04:42 metformin Allergy Unknown vomiting Uncoded 05/24/21 04:42 Active Medications: Current Medications Acetaminophen (Acetaminophen 325 Mg Tablet) 650 mg PO Q6H PRN PRN Reason: Pain, Mild (Pain Scale 1-3) Amiodarone HCl (Amiodarone Hcl 200 Mg Tablet) 100 mg PO DAILY [facility] Bumetanide (Bumetanide 1 Mg Tablet) 1 mg PO DAILY [facility]; Protocol Docusate Sodium (Docusate Sodium 100 Mg Capsule) 100 mg PO DAILY PRN PRN Reason: Constipation Dextrose/Sodium Chloride (D51/2ns) 1,000 mls @ 50 mls/hr IVCONT .Q20H [facility] Piperacillin Sod/Tazobactam (Sod 3.375 gm/ Sodium Chloride) 50 mls @ 100 mls/hr IV Q8H [facility] Melatonin (Melatonin 3 Mg Tablet) 6 mg PO BEDTIME PRN PRN Reason: Insomnia Pantoprazole Sodium (Pantoprazole Sodium 40 Mg/10 Ml Vial) 40 mg IVPUSH DAILY@0630 [facility] Senna (Sennosides 8.6 Mg Tablet) 17.2 mg PO BEDTIME PRN PRN Reason: Constipation Sodium Chloride (0.9 % Sodium Chloride Flush 3 Ml Syringe) 3 ml IVFLUSH QSHIFT [facility] Home Medications Medication Instructions Recorded Confirmed Last Taken Type amiodarone 200 mg tablet 100 mg PO DAILY 03/26/21 05/24/21 05/23/21 History cyanocobalamin (vitamin B-12) 500 500 mcg PO DAILY 03/26/21 05/24/21 05/23/21 History mcg lozenges (Vitamin B-12) docusate sodium 100 mg capsule 100 mg PO DAILY PRN 03/26/21 05/24/21 05/23/21 History (Colace) eszopiclone 2 mg tablet 1 tab PO BEDTIME 03/26/21 05/24/21 05/23/21 History furosemide 40 mg tablet 1 tab PO DAILY 03/26/21 05/24/21 05/23/21 History ramipril 2.5 mg capsule 1 cap PO DAILY 03/26/21 05/24/21 05/23/21 History rosuvastatin 5 mg tablet 1 tab PO DAILY 03/26/21 05/24/21 05/23/21 History bumetanide 1 mg tablet 1 mg PO DAILY 05/24/21 05/24/21 05/23/21 History Physical Exam Vital Signs and Narrative: Vital Signs: Last Vital Signs Temp 97.9 F 05/24/21 00:04 Pulse 84 05/24/21 04:00 Resp 18 05/24/21 04:00 BP 135/67 05/24/21 04:00 Pulse Ox 95 05/24/21 04:00 Body Mass Index 30.1 Gen: Appears be in no acute distress. On supplemental oxygen. Breathing comfortably. HEENT: NCAT, Moist mucosa. Pulmonary: coarse breath sounds, fair air entry CVS: Normal S1-S2 Abdomen: BS+, Soft, Nontender Extremities: Warm well perfused Neuro: Alert and awake. oriented times 1-2 ; able to move bilateral lower extremities equally but unable to lift off the bed-limited exam. Results Labs CBC and Chem 7: 05/24/21 01:11 05/24/21 01:11 Labs: Laboratory Results - last 24 hr 05/24/21 05/24/21 05/24/21 01:11 01:11 01:11 MCV 91.9 MCH 26.5 L MCHC 28.8 L RDW 16.6 H Plt Count 304 MPV 8.7 L Immature Gran % (Auto) 1.6 H Neut % (Auto) 63.7 Lymph % (Auto) 29.4 [place] % (Auto) 5.1 Eos % (Auto) 0.1 Baso % (Auto) 0.1 Lymph # (Auto) 4.2 [place] # (Auto) 0.7 Eos # (Auto) 0.0 Baso # (Auto) 0.0 Abs Immat Gran (auto) 0.23 H Absolute Neuts (auto) 9.1 H Absolute Nucleated RBC 0.000 Nucleated RBC % (auto) 0.0 PT 14.7 H INR 1.3 H Anion Gap 16 Estim Creat Clear Calc 51.9 Estimated GFR > 60 Random Glucose 210 H Calcium 7.9 L Total Bilirubin 0.4 AST 13 ALT 14 Alkaline Phosphatase 109 B-Natriuretic Peptide Total Protein 4.8 L Albumin 2.6 L Urine Color Urine Appearance Urine pH Ur Specific [place] Urine Protein Urine Glucose (UA) Urine Ketones Urine Blood Urine Nitrite Ur Leukocyte Esterase Urine RBC Urine WBC Ur Squamous Epith Cells Urine Bacteria Stool Occult Blood COVID-19 (CHARLES) COVID-19 Clin Com Blood Type Antibody Screen 05/24/21 05/24/21 05/24/21 01:11 02:30 02:32 MCV MCH MCHC RDW Plt Count MPV Immature Gran % (Auto) Neut % (Auto) Lymph % (Auto) [place] % (Auto) Eos % (Auto) Baso % (Auto) Lymph # (Auto) [place] # (Auto) Eos # (Auto) Baso # (Auto) Abs Immat Gran (auto) Absolute Neuts (auto) Absolute Nucleated RBC Nucleated RBC % (auto) PT INR Anion Gap Estim Creat Clear Calc Estimated GFR Random Glucose Calcium Total Bilirubin AST ALT Alkaline Phosphatase B-Natriuretic Peptide 441 H Total Protein Albumin Urine Color YELLOW Urine Appearance TURBID Urine pH 7.0 Ur Specific [place] 1.020 Urine Protein 2+ H Urine Glucose (UA) NEG Urine Ketones 5 Urine Blood 3+ H Urine Nitrite POS H Ur Leukocyte Esterase 2+ H Urine RBC 50-75 H Urine WBC TNTC H Ur Squamous Epith Cells 1+ Urine Bacteria 4+ Stool Occult Blood COVID-19 (CHARLES) COVID-19 Clin Com Blood Type O Positive Antibody Screen NEGATIVE 05/24/21 05/24/21 02:33 03:04 MCV MCH MCHC RDW Plt Count MPV Immature Gran % (Auto) Neut % (Auto) Lymph % (Auto) [place] % (Auto) Eos % (Auto) Baso % (Auto) Lymph # (Auto) [place] # (Auto) Eos # (Auto) Baso # (Auto) Abs Immat Gran (auto) Absolute Neuts (auto) Absolute Nucleated RBC Nucleated RBC % (auto) PT INR Anion Gap Estim Creat Clear Calc Estimated GFR Random Glucose Calcium Total Bilirubin AST ALT Alkaline Phosphatase B-Natriuretic Peptide Total Protein Albumin Urine Color Urine Appearance Urine pH Ur Specific [place] Urine Protein Urine Glucose (UA) Urine Ketones Urine Blood Urine Nitrite Ur Leukocyte Esterase Urine RBC Urine WBC Ur Squamous Epith Cells Urine Bacteria Stool Occult Blood POSITIVE COVID-19 (CHARLES) Negative COVID-19 Clin Com See Note Blood Type Antibody Screen Imaging Radiologist's Impressions: Impressions Cervical Spine CT 05/24/21 00:26 IMPRESSION: Limited evaluation of the head and cervical spine due to motion artifact. No definite acute findings identified. Chest CT 05/24/21 00:26 IMPRESSION: Limited evaluation due to extensive motion artifact. Multifocal bilateral pulmonary opacities could be due to infection or aspiration in the proper clinical setting. Trace right pleural effusion. Fleischner guidelines were followed. Head CT 05/24/21 00:26 IMPRESSION: Limited evaluation of the head and cervical spine due to motion artifact. No definite acute findings identified. Assessment and Plan (1) Anemia: Status: Acute (2) Acute UTI: Status: Acute (3) Sepsis: Status: Acute (4) CHF (congestive heart failure): Status: Acute (5) Diabetes: Status: Acute (6) Afib: Status: Acute 80-year-old female with a past medical history of hypertension, hyperlipidemia, diabetes, CHF, AFib, CLL, anemia, chronic AFib, GERD, recent admission to the [facility] on 04/10/2021 for acute blood loss anemia Secondary to GI bleed -discontinued Eliquis, hematuria, obstructive uropathy, UTI, renal stones - discharged on to [facility] rehab center presented to the hospital today with a chief complaint of unwitnessed fall. unwitnessed fall: Patient able to move all the legs equally. patient denies any focal tenderness. Will obtain pelvis x-ray and lumbar x-ray. Fall precautions. CT head and CT cervical spine showed no acute findings. altered mental status: Likely toxic metabolic encephalopathy. Supportive care. Multifocal pneumonia: Suspected aspiration. Patient recently finished course of antibiotics. Continue Zosyn for now. Speech and swallow eval. UTI: Follow-up cultures. Patient on antibiotics. Patient has Colon in place. Patient had recent obstructive uropathy/ hydronephrosis/renal calculi. Will repeat renal ultrasound. hematuria: Patient has a known hematuria from the recent admission. Also patient has UTI. Mild hypernatremia: Patient on gentle fluids D5 half NS total of 500 cc. Repeat levels. CHF: Patient has 3+ pitting edema; CT chest showed no evidence of pulmonary edema. holding home Bumex for the 1st 24 hours. Anemia: Patient is hemoglobin is 7.5 on presentation. Per discharge summary from [facility]-patient is hemoglobin is in 7 range. guaiac positive stool: IV ppi. GI follow-up. Diabetes: Hold home Lantus. Insulin sliding scale. History of AFib: Currently rate controlled. Patient Eliquis was discontinued in the last admission in March at [facility] secondary to GI bleed/ hematuria. DVT prophylaxis: Unable to use SCD boots secondary to 3+ pitting edema. Unable to use Pharmacologic agents secondary to guaiac positive stool. Code status: DNR/ DNI-patient has molst form. off note: Things to follow-up by the day hospitalist once care taken over at 7:00 a.m. on : Urine and blood cultures Fluid status Speech and swallow inputs-to be resumed diet eventually CBC renal ultrasound - to consider Urology consult if needed based on results Quality Stroke Does the patient have a stroke diagnosis?: No VTE Prior VTE?: No VTE Risk Level:: Medical - moderate - high VTE Device Contraindication: Treatment Not Indicated VTE Drug Contraindication: N/A - Med Ordered
--- NOTE | 2021-05-24 07:14 | PHA.MEDREC ---
Pharmacy Consult ? Medication Reconciliation Pharmacy has reviewed the medication reconciliation completed by MARION Bang. There were many discrepancies. Patient came from [facility] with a medication list. Bumex and eszopicolone were on hold. Patient is no longer taking lasix, ramipril, docusate or vitamin b12. The following medications were missed: - APAP 1000 mg TID - Lantus 8 units at bedtime - Levaquibn 500 mg daily x 5 days - Melatonin 5 mg PRN - Nystating Cream - Pantoprazole 40 mg - Peridex 30 mL BID - KCL 20 mEq daily - tamsulosin 0.4 mg daily Payal Butler, PharmD
--- NOTE | 2021-05-24 07:46 | PC.NURSE ---
pt alert, vss, denies pain. pt NS on monitor. pt remains NPO until swallow evaluation from Speech. Fluids infusing as documented. Pt awaiting bed assignment. will continue to monitor.
[2021-05-24] MEDS: Pantoprazole Sodium 40 MG/10 ML VIAL IVPUSH (09:49)
--- NOTE | 2021-05-24 10:28 | PM.CNCAR ---
History of Present Illness History of Present Illness Date of Service: 05/24/21 Chief complaint: AMS Narrative: This is a cardiology consultation regarding congestive heart failure. Patient goes to [facility]. She states that she has atrial fibrillation and has undergone ablations for the same. Most recently earlier this year. Unknown coronary status. Also known cardiac function. It seems that she had a long hospitalization in [facility]. In the H and P, there is a mention of GI bleed and that anticoagulation was held but patient's healthcare proxy states that it was rather bleeding which led to interruption of anticoagulation. Also other issues like low albumin, generalized deconditioning according to them. She has also been short of breath over the last few weeks and with some orthopnea as well. Additionally leg swelling. No clear anginal-type chest pains. Current admission is because of and witnessed fall. They also state that patient was having some hallucinations prior to that. Currently, she is denying any acute cardiac complaints. Review of Systems Review of Systems: Yes all other systems are reviewed and are negative Cardiovascular: Cardiovascular: Reports as per HPI, Reports no additional cardiovascular complaints, Denies acrocyanosis, Denies cool extremities, Denies painful fingertips, Denies chest pain, Denies chest pain at rest, Denies diaphoresis, Denies syncope, Denies irregular heart rhythm, Denies claudication, Reports leg edema, Denies lightheadedness, Denies palpitations and Reports dyspnea Respiratory: Respiratory: Reports dyspnea Neurologic: Denies syncope Endocrine: Endocrine: Denies palpitations PMFSH Past Medical History Medical History (Updated 05/24/21 @ 10:37 by Scout Barahona MD) Afib Diabetes HTN (hypertension) Social History Social History Patient Tobacco Use Status: Never used Tobacco Use of substances other than those prescribed or required for medical reasons: No Advance Directives: No Meds Allergies Allergy/AdvReac Type Severity Reaction Status Date / Time meperidine [From DEMEROL] Allergy Unknown RASH Verified 05/24/21 04:42 metformin [METFORMIN] Allergy Unknown DIARRHEA Verified 05/24/21 04:42 demerol Allergy Unknown itching Uncoded 05/24/21 04:42 metformin Allergy Unknown vomiting Uncoded 05/24/21 04:42 Active Medications: Current Medications Acetaminophen (Acetaminophen 325 Mg Tablet) 650 mg PO Q6H PRN PRN Reason: Pain, Mild (Pain Scale 1-3) Acetaminophen (Acetaminophen 325 Mg Tablet) 975 mg PO TID [facility] Amiodarone HCl (Amiodarone Hcl 200 Mg Tablet) 200 mg PO DAILY [facility] Docusate Sodium (Docusate Sodium 100 Mg Capsule) 100 mg PO DAILY PRN PRN Reason: Constipation Piperacillin Sod/Tazobactam (Sod 3.375 gm/ Sodium Chloride) 50 mls @ 100 mls/hr IV Q8H [facility] Dextrose/Sodium Chloride (D51/2ns) 500 mls @ 50 mls/hr IVCONT .Q10H [facility] Stop: 05/24/21 15:44 Insulin Glargine (Insulin Glargine,Hum.Rec.Anlog 100 Unit/Ml 10 Ml Vial) 8 unit SUBCUT BEDTIME [facility] Melatonin (Melatonin 3 Mg Tablet) 6 mg PO BEDTIME PRN PRN Reason: Insomnia Omeprazole (Omeprazole 20 Mg Capsule.) 20 mg PO DAILY@0630 [facility] Pharmacy Consult (Consult Rx Perform Med Rec) 1 each MISCELLANE ONCE PRN PRN Reason: Consult order Senna (Sennosides 8.6 Mg Tablet) 17.2 mg PO BEDTIME PRN PRN Reason: Constipation Sodium Chloride (0.9 % Sodium Chloride Flush 3 Ml Syringe) [facility] Last Admin: 05/24/21 07:46 Dose: Not Given Documented by: Tamsulosin HCl (Tamsulosin Hcl 0.4 Mg Capsule) 0.4 mg PO DAILY [facility] Home Medications Medication Instructions Recorded Confirmed Last Taken Type amiodarone 200 mg tablet 200 mg PO DAILY 03/26/21 05/24/21 03/26/21 History rosuvastatin 5 mg tablet 1 tab PO DAILY 03/26/21 05/24/21 03/26/21 History acetaminophen 500 mg tablet 1,000 mg PO TID 05/24/21 05/24/21 Unknown History chlorhexidine gluconate 0.12 % 30 ml BUCCAL BID 05/24/21 05/24/21 Unknown History mouthwash (Peridex) insulin glargine 100 unit/mL (3 8 unit SUBCUT BEDTIME 05/24/21 05/24/21 Unknown History mL) subcutaneous pen (Lantus Solostar U-100 Insulin) levofloxacin 500 mg tablet 500 mg PO DAILY 05/24/21 05/24/21 Unknown History melatonin 5 mg tablet 5 mg PO BEDTIME PRN 05/24/21 05/24/21 Unknown History nystatin 100,000 unit/gram topical 1 appl TOPICAL BID 05/24/21 05/24/21 Unknown History cream pantoprazole 40 mg tablet,delayed 40 mg PO DAILY 05/24/21 05/24/21 Unknown History release potassium chloride 20 mEq 20 meq PO DAILY 05/24/21 05/24/21 Unknown History tablet,extended release tamsulosin 0.4 mg capsule 0.4 mg PO DAILY 05/24/21 05/24/21 Unknown History Physical Exam Vital Signs: Vital Signs: Last Vital Signs Temp 97.6 F 05/24/21 07:38 Pulse 84 05/24/21 07:38 Resp 14 05/24/21 07:38 BP 153/67 H 05/24/21 07:38 Pulse Ox 94 05/24/21 07:38 Body Mass Index 30.1 Const: General: cooperative and no acute distress HENMT: Other: Unremarkable Neck: Neck: Yes normal visual inspection Chest: Chest palpation & inspection: normal inspection of the chest Resp: Other: Few basal crackles. Cardio: Jugular venous distension: no JVD Palpation: normal PMI Heart sounds: S1 normal heart sound present, S2 normal heart sound present, no gallops, no murmurs and no rubs GI: Palpation (GI): Soft to palpation Back/Spine/Pelvis: Other: unremarkable Skin: General skin exam: no rashes or lesions noted Neuro: Cranial nerves: Yes Other cranial nerve findings present Extrem: General: Yes edema (2+) Psych: Mental Status: other Objective Labs and Meds Result diagrams: 05/24/21 01:11 05/24/21 01:11 Lab results: Laboratory Results - last 24 hr 05/24/21 05/24/21 05/24/21 01:11 01:11 01:11 WBC 14.3 H RBC 2.83 L Hgb 7.5 L Hct 26.0 L MCV 91.9 MCH 26.5 L MCHC 28.8 L RDW 16.6 H Plt Count 304 MPV 8.7 L Immature Gran % (Auto) 1.6 H Neut % (Auto) 63.7 Lymph % (Auto) 29.4 Crowley % (Auto) 5.1 Eos % (Auto) 0.1 Baso % (Auto) 0.1 Lymph # (Auto) 4.2 Crowley # (Auto) 0.7 Eos # (Auto) 0.0 Baso # (Auto) 0.0 Abs Immat Gran (auto) 0.23 H Absolute Neuts (auto) 9.1 H Absolute Nucleated RBC 0.000 Nucleated RBC % (auto) 0.0 PT 14.7 H INR 1.3 H Sodium 147 H Potassium 4.0 Chloride 101 Carbon Dioxide 34 H Anion Gap 16 BUN 24 H Creatinine 0.82 Estim Creat Clear Calc 51.9 Estimated GFR > 60 Random Glucose 210 H Calcium 7.9 L Total Bilirubin 0.4 AST 13 ALT 14 Alkaline Phosphatase 109 B-Natriuretic Peptide Total Protein 4.8 L Albumin 2.6 L Urine Color Urine Appearance Urine pH Ur Specific [place] Urine Protein Urine Glucose (UA) Urine Ketones Urine Blood Urine Nitrite Ur Leukocyte Esterase Urine RBC Urine WBC Ur Squamous Epith Cells Urine Bacteria Stool Occult Blood COVID-19 (CHARLES) COVID-19 [facility] Com Blood Type Antibody Screen 05/24/21 05/24/21 05/24/21 01:11 02:30 02:32 WBC RBC Hgb Hct MCV MCH MCHC RDW Plt Count MPV Immature Gran % (Auto) Neut % (Auto) Lymph % (Auto) Crow[place] % (Auto) Eos % (Auto) Baso % (Auto) Lymph # (Auto) Crowley # (Auto) Eos # (Auto) Baso # (Auto) Abs Immat Gran (auto) Absolute Neuts (auto) Absolute Nucleated RBC Nucleated RBC % (auto) PT INR Sodium Potassium Chloride Carbon Dioxide Anion Gap BUN Creatinine Estim Creat Clear Calc Estimated GFR Random Glucose Calcium Total Bilirubin AST ALT Alkaline Phosphatase B-Natriuretic Peptide 441 H Total Protein Albumin Urine Color YELLOW Urine Appearance TURBID Urine pH 7.0 Ur Specific [place] 1.020 Urine Protein 2+ H Urine Glucose (UA) NEG Urine Ketones 5 Urine Blood 3+ H Urine Nitrite POS H Ur Leukocyte Esterase 2+ H Urine RBC 50-75 H Urine WBC TNTC H Ur Squamous Epith Cells 1+ Urine Bacteria 4+ Stool Occult Blood COVID-19 (CHARLES) COVID-19 Kredits Com Blood Type O Positive Antibody Screen NEGATIVE 05/24/21 05/24/21 02:33 03:04 WBC RBC Hgb Hct MCV MCH MCHC RDW Plt Count MPV Immature Gran % (Auto) Neut % (Auto) Lymph % (Auto) [place] % (Auto) Eos % (Auto) Baso % (Auto) Lymph # (Auto) Crow[place] # (Auto) Eos # (Auto) Baso # (Auto) Abs Immat Gran (auto) Absolute Neuts (auto) Absolute Nucleated RBC Nucleated RBC % (auto) PT INR Sodium Potassium Chloride Carbon Dioxide Anion Gap BUN Creatinine Estim Creat Clear Calc Estimated GFR Random Glucose Calcium Total Bilirubin AST ALT Alkaline Phosphatase B-Natriuretic Peptide Total Protein Albumin Urine Color Urine Appearance Urine pH Ur Specific [place] Urine Protein Urine Glucose (UA) Urine Ketones Urine Blood Urine Nitrite Ur Leukocyte Esterase Urine RBC Urine WBC Ur Squamous Epith Cells Urine Bacteria Stool Occult Blood POSITIVE COVID-19 (CHARLES) Negative COVID-19 Clin Com See Note Blood Type Antibody Screen ECG Interpretation: EKG with sinus rhythm at 86/Min; IL prolongation to 280 milliseconds; cannot exclude old anterior infarct. Imaging Radiologist's impression: Impressions Cervical Spine CT 05/24/21 00:26 IMPRESSION: Limited evaluation of the head and cervical spine due to motion artifact. No definite acute findings identified. Chest CT 05/24/21 00:26 IMPRESSION: Limited evaluation due to extensive motion artifact. Multifocal bilateral pulmonary opacities could be due to infection or aspiration in the proper clinical setting. Trace right pleural effusion. Fleischner guidelines were followed. Head CT 05/24/21 00:26 IMPRESSION: Limited evaluation of the head and cervical spine due to motion artifact. No definite acute findings identified. Assessment and Plan (1) Acute on chronic diastolic (congestive) heart failure: Status: Acute (2) PAF (paroxysmal atrial fibrillation): Status: Acute Edema is probably multifactorial. Per patient and healthcare proxy, she has been told to have low albumin which could also lead to edema/anasarca. From the cardiac standpoint, could have congestive heart failure contributing to this. Can do an echocardiogram for cardiac function assessment. Also requested old records. It seems that she got some IV Lasix after ER presentation. May use this empirically but doubt she needs anything too aggressive. Her sodium is also on the higher side. Otherwise with regard to atrial fibrillation, it seems she has had ablations and has been maintained on amiodarone. No changes from that end. With regard to anticoagulation, need to see what happened at [facility] as she apparently had genitourinary bleeding and Eliquis was stopped. She is still quite anemic with a hemoglobin is 7.5. Procedures Date of Service Date of Service: 05/24/21
--- NOTE | 2021-05-24 10:33 | CA_ITS ---
Transthoracic Echocardiogram Patient (Last, First, Middle): Zoey Crowder, Gender: Female Date of : 1940 Age: 80 Procedure Date: 05/24/2021 Procedure Type: Transthoracic Echocardiogram Location: ER Height: 160.02 cm Weight: 77.11 kg BSA: 1.80 m2 Heart Rate: bpm BP: 153 / 67 mmHg Dry Cleaner Helper: Referring MD: Scout Barahona MD Symptoms: CHF Study Quality: Fair ECG Rhythm: Undetermined Conclusions: - The left ventricular systolic function is normal. The visually estimated ejection fraction is between 60-65%. - Moderately increased right ventricular cavity size. - There is moderate tricuspid valve regurgitation. - The right ventricular systolic pressure is 67 mmHg. Moderate to severe pulmonary hypertension is present. Findings Left Ventricle Normal left ventricular cavity size. There is normal left ventricular wall thickness. The left ventricular systolic function is normal. The visually estimated ejection fraction is between 60-65%. There is no evidence of regional wall motion abnormalities. Diastolic function is indeterminate on the basis of available data. Right Ventricle Moderately increased right ventricular cavity size. There is normal right ventricular systolic function. Atria The left atrium is moderately dilated. The right atrium is normal in size. Aortic Valve There is a normal trileaflet aortic valve. There is mild calcification of the aortic valve. There is no aortic valve stenosis. The mean gradient is 6 mmHg. There is no aortic valve regurgitation. Mitral Valve The mitral valve appears normal. There is trace mitral valve regurgitation. There is no mitral valve stenosis. Pulmonic Valve The pulmonic valve was not well visualized. Tricuspid Valve Normal tricuspid valve structure. There is moderate tricuspid valve regurgitation. The right ventricular systolic pressure is 67 mmHg. Moderate to severe pulmonary hypertension is present. Great Vessels The asc aorta is normal in size. Venous The inferior vena cava is normal in size and collapses greater than 50% with inspiration. Pericardium/Pleural There is no evidence of pericardial effusion. Prior Study Comparison No prior study available for comparison. Measurements 2D Linear Measurements IVSd: 0.99 0.6-0.9/0.6-1.0 cm LVIDd: 4.08 3.9-5.3/4.2-5.9 cm LVIDd Index: 2.27 2.4-3.2/2.2-3.1 cm/m2 LVIDs: 2.43 2.0-3.6 cm LVPWd: 0.96 0.7-1.1 cm Ao Root: 2.80 2.1-3.5 cm LA Diam: 3.80 2.7-3.8/3.0-4.0 cm LAIDs Index: 2.11 1.5-2.3 cm/m2 LV Mass: 157.96 67-162/88-224 g LV Mass Index: 87.76 43-95/49-115 g/m2 LVOT Diam: 2.00 3.0+(-)1.3 cm Mitral Valve MV Pk E: 1.30 MV Decel Time: 287.00 E'Lateral: 10.70 E'Medial: 8.16 E/E' Med: 15.90 E/E' Lat: 12.10 PHT: 84.00 MVA PHT: 2.62 Decel Collier: 4.52 Aortic Valve AoV Pk Gustavo: 1.83 AoV Mn Gustavo: 1.15 AoV VTI: 0.35 AoV Pk Grad: 13.00 Aov Mn Grad: 6.00 SKYLA Cont.VTI: 2.11 LVOT LVOT Pk Gustavo: 1.31 LVOT Mn Gustavo: 0.75 LVOT VTI: 0.24 LVOT Pk Grad: 7.00 LVOT Mn Grad: 3.00 LVOT Diam: 2.00 LVOT Area: 3.14 Diastolic Function MV Pk E: 1.30 E'Medial: 8.16 E/E' Med: 15.90 E' Laterial: 10.70 E/E' Lat: 12.10 Tricuspid Valve TR Pk Gustavo: 3.94 TR Pk Grad: 62.00 RVSP: 67.00 Great Vessels Aorta Ao Root-2D: 2.80 2.0-3.7 cm Ao Asc: 3.00 2.1-3.4 cm Pulmonary Valve PV Pk Gustavo: 1.38 Peak PV Grad: 8.00 Updated in Other Vendor System with Status of Final Scout Barahona MD electronically signed on 05/24/2021 2:58:08 PM with status of Final
--- NOTE | 2021-05-24 12:08 | MHC.SL.SWA ---
Speech Pathologist Impression: Risk of Aspiration Oralpharyngeal Dysphagia Risk of Aspiration Due to: History of Pneumonia Weak Cough Weak Voice Dysphasia Diet Status: Upgrade Liquid Consistency and Strategies for Safe Swallow: Liquid Intake Recommendation: [place] Thick Liquid Intake Strategies: Small Sips No Straws Solid Food Consistency: Dietary Recommendations: Pureed (NDD1) Additional Modifications to Solid Foods: Patient's chest CT showed questionable infiltrates. Patient was seen in the ED this morning for bedside dysphagia evaluation due to concern for aspiration. Patient displays severe dysphonia, characterized by severe breathiness and periods of aphonia. 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 Patient displays weak cough; compromised airway protection and weak voice secondary to possible vocal fold paralysis. Patient reports that she eats pureed food because she is edentulous. Patient reports that she does have dentures, but they are not with her and will be brought to her tomorrow. She displayed overt s/s of aspiration when drinking thin liquid. At this time, recommend PUREED (NDD1) solids and NECTAR THICK liquids, with pills CRUSHED in PUREE. Recommend total supervision during PO intake and strict aspiration precautions. SALON COORDINATOR will continue to follow to monitor tolerance and re-assess potential for upgrade if appropriate. Oral Medication Intake: Crushed with Puree Compensatory Strategies and Precautions to be Taken for Safe Swallow: Sitting Upright (90 deg) No Straw Liquids from Cup Liquids from Spoon Small Bites and Sips Alternate Liquids/Solids Rate of Ingestion Change Supervision While Eating and Drinking for Safe Swallow: Total Supervision (1:1) Swallowing Recommended Treatments: Compens. Strategy Educat. Recommendation for Speech: Inpatient Speech Therapy Speech Therapy through Rehab Facility Comment: Recommend continue inpatient speech therapy for oropharyngeal dysphagia. Patient may benefit from continued speech therapy services at next level of care for dysphagia and voice/communication. Automatic Glove Turner And Former Clinican/Clinical Fellow: No Supervisory Statement: I have reviewed and agree with the student/clinical fellow's documentation: N/A Speech Language Pathologist: Gretta Jacques M.A., [facility] COORDINATOR
--- NOTE | 2021-05-24 14:06 | PC.NURSE ---
report given to receiving nurse MARION Quesada. pt will be transported to room 379 by medical policy specialist. pt alert and oriented, vss, pt denies pain.
[2021-05-24 14:32] LABS: Glucose, Whole Blood 213 mg/dL (60-115)
--- NOTE | 2021-05-24 14:32 | PM.EVENT ---
Event Note Date of Service: 05/24/21 Event Note: 80-year-old female with a past medical history of hypertension, hyperlipidemia, diabetes, CHF, AFib, CLL, anemia, chronic AFib, GERD, recent admission to the [facility] on 04/10/2021 for acute blood loss anemia? Secondary to GI bleed -discontinued Eliquis, hematuria, obstructive uropathy, UTI, renal stones - discharged on to? [facility] presented to the hospital today with a chief complaint of unwitnessed fall. unwitnessed fall/generalized weakness decreased by mouth intake Question related to weakness confusion due to UTI , CT head and cervical spine showed no acute abnormality Patient awake alert unable to provide history surrounding fall Will obtain PT eval toxic metabolic encephalopathy/ Visual hallucination Likely due to UTI/pneumonia/hypernatremia and change in place, will treat and follow, as per healthcare proxy patient previously was on Remeron that was recently discontinued due to concern for side effects will consider low-dose risperidone if patient continued to have hallucinations Multifocal pneumonia: Suspected aspiration.? Patient recently finished course of antibiotics.? Continue Zosyn day 1 for now. Seen by speech therapist they recommend pureed solids and nectar thick liquids UTI: History of recurrent UTIs is status post bilateral stent placement, currently on Levaquin, patient placed on Zosyn for aspiration pneumonia will follow urine culture Continue Colon catheter, recent admission to [facility] due to obstructive uropathy/ hydronephrosis/renal calculi, repeat renal ultrasound report pending Mild hypernatremia: Continue IV fluids follow BMP History CHF: No acute exacerbation Chronic Anemia: With history of recent hematuria status post 2 units of packed RBC at [facility], hematocrit is stable, no history of GI bleed , will DC IV PPI Diabetes: Will place on diabetic diet and continue? Lantus and Insulin sliding scale.? History of chronic AFib: Currently rate controlled.? Patient Eliquis was discontinued in the last admission in March at [facility] secondary to hematuria. DVT prophylaxis:? Will place on compression boots Code status:? DNR/ DNI-patient has molst form. Case discussed in length with patient healthcare proxy sister Annalise Tovar answered all her questions and concerns to her satisfaction
[2021-05-24] MEDS: Acetaminophen 325 MG TABLET 975 MG PO ×2 (15:50→21:30)
[2021-05-24 16:14] LABS: Glucose, Whole Blood 188 mg/dL (60-115)
[2021-05-24] MEDS: Insulin Lispro 100 UNIT/ML 3 ML VIAL SUBCUT (17:05)
[2021-05-24] MEDS: 0.9 % Sodium Chloride Flush 3 ML SYRINGE IVFLUSH (17:05)
--- NOTE | 2021-05-24 17:05 | PM.GICN ---
History of Present Illness Data of Consult Service Date: 05/24/21 Requesting physician: Stanley Natarajan Primary Care Provider: Subhash Ng MD HPI Reason for consult: Anemia, GI Bleeding 80 YF with hypertension, hyperlipidemia, diabetes, CHF, AFib, anemia, chronic AFib and GERD, hematuria, obstructive uropathy, UTI, renal stones Patient was recently hospitalized at [facility] on 04/10/2021 for acute blood loss anemia?attributed to hematuria. Pt had heme positive stool at [facility] prior to discharge, iron studies were suggestive of anemia of chronic disease. Since patient insisted on being transferred to [facility], she was discharged on PO Pantoprazole Eliquis was stopped and pt was discharged on 05/02/21 to? [facility] Pt came to [facility] today after unwitnessed fall and pt's home care nurse from the nursing facility at bedside mentioned that patient was noted to be lately confused. Patient is lying in the bed comfortably, supplemental oxygen in place, alert and awake, pleasantly confused, oriented times 1-2. She denied any chest pain palpitations, shortness of breath, nausea vomiting diarrhea, or abdominal discomfort. Patient unable to recall the event of fall from the bed.? Per nurse at bedside patient had a fall, unwitnessed, unknown as the patient was consciousness.? Review of all other systems is limited.? ER course: Per ER team patient CT head and cervical spine CT showed no acute findings; CT chest showed multifocal pneumonia concern for aspiration.? On legs noted to have peripheral edema 3+; urine looks cloudy and urinalysis consistent with UTI.? Patient was given Zosyn.? Admitted to the hospital for further management. ?Lab evaluation revealed H & H of 7.5 & 26%, BUN 24, albumin 2.6, INR 1.3.? Stool guaiac was positive. Patient denies symptoms of heartburn, dysphagia, nausea, vomiting, change in appetite or weight. Denies recent change in bowel habits, constipation, diarrhea, black stools or rectal bleeding. Patient denies major cardiac or pulmonary problems, loud snoring or sleep apnea Denies problems with anesthesia in the past. Denies being on chronic anticoagulation. Patient denies known family history of colon polyps, colon cancer or other GI malignancies. PAST EGD/COLONOSCOPY: Pt reports having an EGD and Colonoscopy at [facility] 1.5 years ago (negative per patient) - records requested from [facility] and reviewed. JUL 2018 PT HAD AN EGD BY DR JACOBS which showed a hiatal hernia and an 8 mm inflammatory appearing polyp (not biopsied since stomach was full of food and pt has vocal cord paralysis) Patient had lots of retained food in the stomach suggestive of gastroparesis. Review of Systems Constitutional: Constitutional: Reports fatigue, Denies fever(s), Denies headache(s) and Denies weight loss Eyes: Eyes: Denies eye discharge and Denies irritation ENT: Reports Normal hearing present, Denies dysphagia, Denies dizziness and Denies headache(s) Cardiovascular: Cardiovascular: Denies chest pain, Denies leg edema, Reports dyspnea and Reports dyspnea on exertion Respiratory: Respiratory: Denies cough, Reports dyspnea, Reports dyspnea on exertion and Denies wheezing Gastrointestinal: Gastrointestinal: Denies abdominal pain, Denies change in bowel habits, Denies dysphagia and Denies heartburn Genitourinary: Genitourinary: Denies difficulty voiding and Denies dysuria Musculoskeletal: Musculoskeletal: Denies back pain and Denies arthralgias Integumentary/Breasts: Skin/Breast: Denies pruritus, Denies rash and Denies jaundice Neurologic: Reports Normal hearing present, Denies Abnormal speech present, Reports confusion, Denies dizziness, Denies headache(s) and Denies seizure-like activity Psychiatric: Psychiatric: Denies anxiety, Reports confusion, Denies depression and Denies panic attacks Endocrine: Endocrine: Denies cold intolerance, Reports fatigue, Denies flushing and Denies heat intolerance Hematologic/Lymphatic: Hematologic/Lymphatic: Denies easy bleeding and Denies easy bruising Allergic/Immunologic: Allergic/Immunologic: Denies wheezing PMFSH Past Medical History Medical History (Updated 06/08/21 @ 00:02 by Background Daemon) Acute on chronic diastolic (congestive) heart failure Afib Anemia Diabetes HTN (hypertension) Non-rheumatic tricuspid valve insufficiency PAF (paroxysmal atrial fibrillation) Pulmonary hypertension Social History Social History Household Members: None Housing: Apartment Do you presently have visiting nurse or other home services: Yes Patient Tobacco Use Status: Never used Tobacco service: No Current occupational status: retired Meds Allergies Allergy/AdvReac Type Severity Reaction Status Date / Time meperidine [From DEMEROL] Allergy Unknown RASH Verified 05/24/21 04:42 metformin [METFORMIN] Allergy Unknown DIARRHEA Verified 05/24/21 04:42 demerol Allergy Unknown itching Uncoded 05/24/21 04:42 metformin Allergy Unknown vomiting Uncoded 05/24/21 04:42 Active Medications: Current Medications Acetaminophen (Acetaminophen 325 Mg Tablet) 650 mg PO Q6H PRN PRN Reason: Pain, Mild (Pain Scale 1-3) Acetaminophen (Acetaminophen 325 Mg Tablet) 975 mg PO TID [facility] Last Admin: 05/24/21 15:50 Dose: 975 mg Documented by: Amiodarone HCl (Amiodarone Hcl 200 Mg Tablet) 200 mg PO DAILY [facility] Dextrose (Dextrose 50 % 25 Gm/50 Ml Vial) 25 gm IVPUSH Q15M PRN; Protocol PRN Reason: per Hypoglycemia Standing Ord. Docusate Sodium (Docusate Sodium 100 Mg Capsule) 100 mg PO DAILY PRN PRN Reason: Constipation Glucose (Glucose Gel 15 Gm Gel..Gram.) 15 gm PO Q15M PRN; Protocol PRN Reason: per Hypoglycemia Standing Ord. Piperacillin Sod/Tazobactam (Sod 3.375 gm/ Sodium Chloride) 50 mls @ 100 mls/hr IV Q8H [facility] Last Infusion: 05/24/21 13:40 Dose: Infused Documented by: Insulin Glargine (Insulin Glargine,Hum.Rec.Anlog 100 Unit/Ml 10 Ml Vial) 8 unit SUBCUT BEDTIME [facility] Insulin Human Lispro (Insulin Lispro 100 Unit/Ml 3 Ml Vial) 0 unit SUBCUT QIDACHS [facility]; Protocol Melatonin (Melatonin 3 Mg Tablet) 6 mg PO BEDTIME PRN PRN Reason: Insomnia Omeprazole (Omeprazole 20 Mg Capsule.) 20 mg PO DAILY@0630 [facility] Pharmacy Consult (Consult Rx Perform Med Rec) 1 each MISCELLANE ONCE PRN PRN Reason: Consult order Senna (Sennosides 8.6 Mg Tablet) 17.2 mg PO BEDTIME PRN PRN Reason: Constipation Sodium Chloride (0.9 % Sodium Chloride Flush 3 Ml Syringe) 3 ml IVFLUSH QSHIFT [facility] Last Admin: 05/24/21 07:46 Dose: Not Given Documented by: Tamsulosin HCl (Tamsulosin Hcl 0.4 Mg Capsule) 0.4 mg PO DAILY [facility] Home Medications Medication Instructions Recorded Confirmed Last Taken Type amiodarone 200 mg tablet 200 mg PO DAILY 03/26/21 05/24/21 03/26/21 History rosuvastatin 5 mg tablet 1 tab PO DAILY 03/26/21 05/24/21 03/26/21 History acetaminophen 500 mg tablet 1,000 mg PO TID 05/24/21 05/24/21 Unknown History chlorhexidine gluconate 0.12 % 30 ml BUCCAL BID 05/24/21 05/24/21 Unknown History mouthwash (Peridex) melatonin 5 mg tablet 5 mg PO BEDTIME PRN 05/24/21 05/24/21 Unknown History nystatin 100,000 unit/gram topical 1 appl TOPICAL BID 05/24/21 05/24/21 Unknown History cream pantoprazole 40 mg tablet,delayed 40 mg PO DAILY 05/24/21 05/24/21 Unknown History release potassium chloride 20 mEq 20 meq PO DAILY 05/24/21 05/24/21 Unknown History tablet,extended release tamsulosin 0.4 mg capsule 0.4 mg PO DAILY 05/24/21 05/24/21 Unknown History Physical Exam Vital Signs: Vital Signs: Last Vital Signs Temp 98.7 F 05/24/21 15:35 Pulse 86 05/24/21 15:35 Resp 18 05/24/21 15:35 BP 144/84 H 05/24/21 15:35 Pulse Ox 98 05/24/21 15:35 Body Mass Index 30.1 Const: General: no acute distress, confusion and ill appearing Nutritional Appearance: average body habitus Orientation/consciousness: confusion Limitations: no limitations HENMT: Head: Yes normal to inspection Ears: hearing grossly normal bilaterally Mouth: Normal oral and palatal mucosa present Eyes: Sclerae: sclerae normal Pupils: Equal, round and reactive pupils present Neck: Neck: Yes normal visual inspection Chest: Chest palpation & inspection: normal inspection of the chest Resp: Effort & Inspection: normal respiratory effort Auscultation: clear to auscultation bilaterally Cardio: Palpation: normal PMI Rate: regular rate Rhythm: regular rhythm Heart sounds: S1 normal heart sound present, S2 normal heart sound present and no murmurs GI: Palpation (GI): Soft to palpation, nontender and No hepatosplenomegaly present Auscultation: normal bowel sounds Rectal Exam - Female: deferred Skin: General skin exam: no rashes or lesions noted Neuro: General: gait normal, moves all extremities and confusion Cranial nerves: Yes Equal, round and reactive pupils present and Yes Normal hearing present Speech: No Abnormal speech present Psych: Appearance: grossly normal Mental Status: mental status grossly normal Results Labs CBC & Chem 7: 05/31/21 05:16 05/31/21 05:16 Labs: Short CBC 05/24/21 Range/Units 01:11 WBC 14.3 H (4.8-10.8) X10*3/uL Hgb 7.5 L (12.0-16.0) g/dl Hct 26.0 L (37.0-47.0) % Plt Count 304 (160-400) X10*3/uL BMP 05/24/21 01:11 Sodium 147 H Potassium 4.0 Chloride 101 Carbon Dioxide 34 H BUN 24 H Creatinine 0.82 Calcium 7.9 L Liver Function 05/24/21 Range/Units 01:11 Total Bilirubin 0.4 (0.0-1.0) mg/dL AST 13 (5-31) U/L ALT 14 (0-31) U/L Alkaline Phosphatase 109 (39-117) U/L Albumin 2.6 L (3.5-5.0) g/dL Urine 05/24/21 Range/Units 02:32 Urine Color YELLOW Urine Appearance TURBID Urine pH 7.0 (5.0-8.0) Ur Specific [place] 1.020 (1.005-1.025) Urine Protein 2+ H (NEG-TRACE) MG/DL Urine Glucose (UA) NEG (NEG) MG/DL Assessment and Plan (1) Anemia: Plan 80 YF with hypertension, hyperlipidemia, diabetes, CHF, AFib, anemia, chronic AFib and GERD, hematuria, obstructive uropathy, UTI, renal stones Patient was recently hospitalized at [facility] on 04/10/2021 for acute blood loss anemia?attributed to hematuria. Pt had heme positive stool at [facility] prior to discharge, iron studies were suggestive of anemia of chronic disease. Since patient insisted on being transferred to [facility], she was discharged on PO Pantoprazole Pt reports having an EGD and Colonoscopy at [facility] 1.5 years ago (negative per patient) - records have been requested from [facility]. RECOMMENDATIONS: 1. Follow H & H daily and transfuse prn. 2. I will schedule patient for an EGD once pneumonia resolves and respiratory status improves. (since pt reports having a colonoscopy 1.5 yrs ago, repeat colonoscopy is not indicated). Procedures Date of Service Date of Service: 05/24/21
--- NOTE | 2021-05-24 17:34 | PC.NURSE ---
Patient reports using c pap at home,unable to bring her own to the hospital,dr. Noyola made aware
[2021-05-24 20:21] LABS: Glucose, Whole Blood 149 mg/dL (60-115)
[2021-05-24] MEDS: Insulin Glargine,Hum.rec.anlog 100 UNIT/ML 10 ML VIAL 8 UNIT SUBCUT (21:28)
[2021-05-25] VITALS (10 sets, daily range): BP systolic 97–123; BP diastolic 48–69; PULSE 58–77; RESP 14–20; TEMP 36.1–36.9; O2SAT 93–99; BMI 30.1
[2021-05-25] MEDS: 0.9 % Sodium Chloride Flush 3 ML SYRINGE IVFLUSH ×2 (00:11→20:00)
[2021-05-25] MEDS: Piperacillin Sodium/Tazobactam 3.375 GM in 0.9 % Sodium Chloride 50 ML IV ×3 (03:56→19:59)
[2021-05-25 05:39] LABS: MANUAL DIFF FLAG NO
[2021-05-25 05:47] LABS: Basophils Percent Auto 0.1 % (0-2); Eosinophils Absolute Auto 0.1 X10*3/uL (0.0-0.4); Eosinophils Percent Auto 0.5 % (0-4); Hematocrit 24.4 % (37.0-47.0); Imm Gran Abs Auto 0.22 X10*3/uL (0.00-0.03); Imm Gran Pct Auto 1.6 % (0.0-0.4); Lymphocytes Absolute Auto 4.3 X10*3/uL (1.2-4.9); Lymphocytes Percent Auto 31.4 % (20-40); Mean Corpuscular HGB Conc 28.3 g/dl (31.0-35.0); Mean Corpuscular Hemoglobin 26.2 pg (27.0-33.0); Mean Corpuscular Volume 92.8 fL (80.0-98.0); Mean Platelet Volume 8.7 fL (9.4-12.3); Monocytes Absolute Auto 0.7 X10*3/uL (0.1-1.2); Monocytes Percent Auto 4.9 % (2-11); Neutrophils Absolute Auto 8.5 x10*3/uL (2.0-8.3); Neutrophils Percent Auto 61.5 % (45-73); Platelet Count 290 X10*3/uL (160-400); Red Blood Count 2.63 X10*6/uL (4.20-5.50); Red Cell Distribution Width 17.1 % (11.0-16.0); White Blood Count 13.8 X10*3/uL (4.8-10.8)
[2021-05-25 06:23] LABS: Anion Gap 10 (12-20); Blood Urea Nitrogen 20 mg/dL (9-16); Calcium 7.9 mg/dL (8.4-10.2); Carbon Dioxide 40 mmol/L (22-29); Chloride 102 mmol/L (96-108); Creatinine Clr Calc Pharmacy 52.6; Estimated Glomerular Filt Rate > 60; Glucose Random 86 mg/dL (60-115); Potassium 3.2 mmol/L (3.3-5.1); Sodium 149 mmol/L (135-145)
[2021-05-25 06:27] LABS: Hemoglobin 6.9 g/dl (12.0-16.0)
--- NOTE | 2021-05-25 06:29 | PM.EVENT ---
Event Note Date of Service: 05/25/21 Event Note: hemoglobin low this morning, no active bleed, will order 1 unit of PRBC
[2021-05-25] MEDS: Omeprazole 20 MG CAPSULE.DR PO (06:45)
--- NOTE | 2021-05-25 06:46 | PC.NURSE ---
CALL RECEIVED FROM LAB WITH A CRITICAL VALUE OF CARBON DIOXIDE LEVEL OF 40, THEN A PRIORITY TEXT FOR A LOWW HH OF 6.9 AND 24.4. PREVIOUSLY LEVEL 7.5 AND 26.0. MESSAGE SENT TO HOSPITALIST ON DUTY, NEW ORDER RECEIVED FOR A UNIT OF RBC'S FOR TRANSFUSION. MESSAGED AT 0623. MESSAGED 0628. WILL REPORT TO DAY RN. PT EASILY AWAKENED, TOOK HER AM MEDICINE, OFFERED NO COMPLAINTS. UPDATED HER OF TRANSFUSION. NO S/SX ACTIVE BLEEDING AT THIS TIME.
[2021-05-25 07:28] LABS: Glucose, Whole Blood 71 mg/dL (60-115)
[2021-05-25] MEDS: KCl 20 mEq in 5 % Dextrose 20 MEQ/1,000 ML IV.SOLN 80 MEQ IVCONT (08:29)
[2021-05-25] MEDS: Tamsulosin HCL 0.4 MG CAPSULE PO (08:30)
[2021-05-25] MEDS: Acetaminophen 325 MG TABLET 975 MG PO ×3 (08:30→19:59)
[2021-05-25] MEDS: Amiodarone HCL 200 MG TABLET PO (08:30)
--- NOTE | 2021-05-25 09:22 | MHC.CLN ---
Addendum entered by Margaret Saravia, MANUELITO 05/25/21 11:56: AGREE WITH PROVIDER'S ASSESSMENT BELOW Original Note: RE: CONSULT PT EXPERIENCED 3.9% NON SIGNIFICANT WT LOSS X 2 MONTHS PT REPORTS HER APPETITE HAS BEEN FINE AND SHE IS UNSURE IF SHE HAS RECENTLY LOST WT PT IS AT INCREASED NUTRITION RISK R/T STAGE II PRESSURE INJURIES ON COCCYX AND BUTTOCK DIET RX: 1200 DM PUREED (NDD1) WITH NECTAR THICK LIQUIDS-RECOMMEND 2000 DM DIET PT RECEIVING GLUCERNA SUPPLEMENT BID TO PROVIDE 474 KCALS AND 20 GRAMS PROTEIN MONITOR PO INTAKE CLOSELY MONITOR SUPPLEMENT ACCEPTANCE
--- NOTE | 2021-05-25 09:37 | MHC.CM.PN ---
IMM 05/25/21, PT ADMITTED S/P UNWITNESSED FALL, PT FOUND TO HAVE PNA, UTI AND ANEMIC W/HGB 6.9 TODAY 05/25, CM MT WITH PT WHO WAS LETHARGIC/WEAK HOWEVER WAS ABLE TO ANSWER MOST QUESTIONS, PT REPORTS SHE LIVES ALONE, PTVERIFIES GRAB BARS IN BR BT TOILET/TUB, HAS DIABETIC SUPPLIES AND TYPICALLY TAKES BS'S TWICE DAILY, PT DENIES USE OF CANE/WALKER AT BASELINE, PT DENIES HOME SERVICES, PT OPEN TO HOME SERVICES HOWEVER WOULD LIKE TO RETURN TO TO COMPLETE HER STR. PER PT WILL NEED A NEW PT EVAL PRIOR TO RETURN. PCP AND HCP ON FILE VERIFIED. D/C PLAN: RETURN TO FOR STR, ACTION FOR BLS TRANSPORT
[2021-05-25] MEDS: Potassium Chloride ER 20 MEQ TAB.ER.PRT PO (10:34)
[2021-05-25 11:20] LABS: Glucose, Whole Blood 144 mg/dL (60-115)
--- NOTE | 2021-05-25 13:24 | MHC.SL.SWA ---
Speech Pathologist Impression: Risk of Aspiration Oralpharyngeal Dysphagia Risk of Aspiration Due to: History of Pneumonia Weak Cough Weak Voice Dysphasia Diet Status: Upgrade Liquid Consistency and Strategies for Safe Swallow: Liquid Intake Recommendation: [place] Thick Liquid Intake Strategies: Small Sips No Straws Solid Food Consistency: Dietary Recommendations: Pureed (NDD1) Additional Modifications to Solid Foods: Patient's chest CT showed questionable infiltrates. Patient was seen in the ED this morning for bedside dysphagia evaluation due to concern for aspiration. Patient displays severe dysphonia, characterized by severe breathiness and periods of aphonia. 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 Patient displays weak cough; compromised airway protection and weak voice secondary to possible vocal fold paralysis. Patient reports that she eats pureed food because she is edentulous. Patient reports that she does have dentures, but they are not with her and will be brought to her tomorrow. She displayed overt s/s of aspiration when drinking thin liquid. At this time, recommend PUREED (NDD1) solids and NECTAR THICK liquids, with pills CRUSHED in PUREE. Recommend total supervision during PO intake and strict aspiration precautions. FLAT SHEET MAKER will continue to follow to monitor tolerance and re-assess potential for upgrade if appropriate. Oral Medication Intake: Crushed with Puree Compensatory Strategies and Precautions to be Taken for Safe Swallow: Sitting Upright (90 deg) Liquids from Spoon Alternate Liquids/Solids Rate of Ingestion Change Oral Check Supervision While Eating and Drinking for Safe Swallow: Total Supervision (1:1) Foods to Avoid: Swallowing Recommended Treatments: Compens. Strategy Educat. Recommendation for Speech: Inpatient Speech Therapy Speech Therapy through Rehab Facility Comment: 05/25: Pt was roused from sleep for today's treatment. During session she continued to close her eyes but was responsive to questions and able to follow directions for swallowing trials. 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 Pt demonstrated aphonia during session. Pt was given sips of nectar thick liquid by spoon, and demonstrated timely oral transit and swallow initiation with no s/s aspiration. Pt. took, small spoonful of puree consistency with mild delay of oral phase, timely swallow. Pt c/o thirsty, remained with pt to give multiple spoon sips of nectar thick liquid, with no s/s aspiration. Pt continues at risk for aspiration due to vocal chord paralysis/unguarded airway. Will continue to require close supervision during all intake of food and liquid with monitoring for aspiration signs. Recommend continue on current diet. Frequency/Duration: Date Range for Service Req: Timeline to reassess: Commutator Operator Clinican/Clinical Fellow: No Supervisory Statement: I have reviewed and agree with the student/clinical fellow's documentation: N/A Speech Language Pathologist: hSara Saenz M.A., CCC-FLAT SHEET MAKER
--- NOTE | 2021-05-25 15:36 | PC.NURSE ---
P bilateral bases fine crackles I patient repositioned,encouraged deep breathing,Dr. Noyola notified E denies SOB,will monitor
[2021-05-25 15:55] LABS: Glucose, Whole Blood 217 mg/dL (60-115)
--- NOTE | 2021-05-25 16:06 | HO.PM.IMPN ---
Subjective Subjective Date of Service: 05/26/21 Interval History: Being followed for unwitnessed fall, patient somnolent this a.m. easily arousable answering questions appropriately, tolerated full glass of liquid, no overnight events, patient denies pain, denies lightheadedness,no dizziness hematocrit dropped to 24.4, no hematemesis or melena overnight. Denies hallucination. Review of Systems General no headache, no dizziness, no fever chills. CVS no chest pain, no palpitation. Respiratory no cough, no sob. Gastrointestinal no nausea, no vomiting, no abdominal pain Musculoskeletal no pain Review of Systems: Yes all other systems are reviewed and are negative Physical Exam Vital Signs: Vital Signs: Last Vital Signs Temp 97.4 F 05/25/21 15:38 Pulse 62 05/25/21 15:38 Resp 14 05/25/21 15:38 BP 104/49 L 05/25/21 15:38 Pulse Ox 99 05/25/21 15:38 Body Mass Index 30.1 General somnolent, easily arousable, awake alert x3, no acute distress. Neck no JVD. CVS regular rate rhythm, Respiratory no respiratory distress, no wheeze, no rhonchi. Gastrointestinal abdomen soft, nontender, bowel sounds audible, no guarding , no rigidity. Extremities no pitting edema. Neuro nonfocal , aphonia Skin no rash Psych appropriate affect Objective Data Active Medications Acetaminophen (Acetaminophen 325 Mg Tablet) 650 mg PO Q6H PRN PRN Reason: Pain, Mild (Pain Scale 1-3) Acetaminophen (Acetaminophen 325 Mg Tablet) 975 mg PO TID [facility] Last Admin: 05/25/21 15:16 Dose: 975 mg Documented by: SULEMAN Amiodarone HCl (Amiodarone Hcl 200 Mg Tablet) 200 mg PO DAILY [facility] Last Admin: 05/25/21 08:30 Dose: 200 mg Documented by: ЮЛИЯ Dextrose (Dextrose 50 % 25 Gm/50 Ml Vial) 25 gm IVPUSH Q15M PRN; Protocol PRN Reason: per Hypoglycemia Standing Ord. Docusate Sodium (Docusate Sodium 100 Mg Capsule) 100 mg PO DAILY PRN PRN Reason: Constipation Glucose (Glucose Gel 15 Gm Gel..Gram.) 15 gm PO Q15M PRN; Protocol PRN Reason: per Hypoglycemia Standing Ord. Piperacillin Sod/Tazobactam (Sod 3.375 gm/ Sodium Chloride) 50 mls @ 100 mls/hr IV Q8H [facility] Last Infusion: 05/25/21 12:53 Dose: 100 mls/hr Documented by: ЮЛИЯ Potassium Chloride/Dextrose () 20 meq in 1,000 mls @ 80 mls/hr IVCONT .[id number] [facility] Last Admin: 05/25/21 08:29 Dose: 80 mls/hr Documented by: ЮЛИЯ Insulin Glargine (Insulin Glargine,Hum.Rec.Anlog 100 Unit/Ml 10 Ml Vial) 8 unit SUBCUT BEDTIME [facility] Last Admin: 05/24/21 21:28 Dose: 8 unit Documented by: SULEMAN Insulin Human Lispro (Insulin Lispro 100 Unit/Ml 3 Ml Vial) 0 unit SUBCUT QIDACHS [facility]; Protocol Last Admin: 05/25/21 11:09 Dose: Not Given Documented by: ЮЛИЯ Non-Admin Reason: No Insulin Coverage Melatonin (Melatonin 3 Mg Tablet) 6 mg PO BEDTIME PRN PRN Reason: Insomnia Omeprazole (Omeprazole 20 Mg Capsule.) 20 mg PO DAILY@0630 [facility] Last Admin: 05/25/21 06:45 Dose: 20 mg Documented by: LORRAINE Pharmacy Consult (Consult Rx Perform Med Rec) 1 each MISCELLANE ONCE PRN PRN Reason: Consult order Senna (Sennosides 8.6 Mg Tablet) 17.2 mg PO BEDTIME PRN PRN Reason: Constipation Sodium Chloride (0.9 % Sodium Chloride Flush 3 Ml Syringe) 3 ml IVFLUSH QSHIFT [facility] Last Admin: 05/25/21 15:15 Dose: Not Given Documented by: SULEMAN Non-Admin Reason: IV Running Tamsulosin HCl (Tamsulosin Hcl 0.4 Mg Capsule) 0.4 mg PO DAILY [facility] Last Admin: 05/25/21 08:30 Dose: 0.4 mg Documented by: ЮЛИЯ Labs CBC & Chem 7: 05/26/21 05:46 05/26/21 05:46 Labs: Laboratory Results - last 24 hr 05/24/21 05/24/21 05/24/21 02:30 16:10 20:17 MCV MCH MCHC RDW Plt Count MPV Immature Gran % (Auto) Neut % (Auto) Lymph % (Auto) Ponce % (Auto) Eos % (Auto) Baso % (Auto) Lymph # (Auto) Ponce # (Auto) Eos # (Auto) Baso # (Auto) Abs Immat Gran (auto) Absolute Neuts (auto) Absolute Nucleated RBC Nucleated RBC % (auto) Smear Path Review Anion Gap Estim Creat Clear Calc Estimated GFR POC Glucose 188 H 149 H Random Glucose Calcium Blood Type O Positive Antibody Screen NEGATIVE Crossmatch See Detail 05/25/21 05/25/21 05/25/21 05:29 05:29 07:24 MCV 92.8 MCH 26.2 L MCHC 28.3 L RDW 17.1 H Plt Count 290 MPV 8.7 L Immature Gran % (Auto) 1.6 H Neut % (Auto) 61.5 Lymph % (Auto) 31.4 Ponce % (Auto) 4.9 Eos % (Auto) 0.5 Baso % (Auto) 0.1 Lymph # (Auto) 4.3 Ponce # (Auto) 0.7 Eos # (Auto) 0.1 Baso # (Auto) 0.0 Abs Immat Gran (auto) 0.22 H Absolute Neuts (auto) 8.5 H Absolute Nucleated RBC 0.000 Nucleated RBC % (auto) 0.0 Smear Path Review SEE NOTE Anion Gap 10 L Estim Creat Clear Calc 52.6 Estimated GFR > 60 POC Glucose 71 Random Glucose 86 Calcium 7.9 L Blood Type Antibody Screen Crossmatch 05/25/21 05/25/21 11:04 15:44 MCV MCH MCHC RDW Plt Count MPV Immature Gran % (Auto) Neut % (Auto) Lymph % (Auto) [place]once % (Auto) Eos % (Auto) Baso % (Auto) Lymph # (Auto) Ponce # (Auto) Eos # (Auto) Baso # (Auto) Abs Immat Gran (auto) Absolute Neuts (auto) Absolute Nucleated RBC Nucleated RBC % (auto) Smear Path Review Anion Gap Estim Creat Clear Calc Estimated GFR POC Glucose 144 H 217 H Random Glucose Calcium Blood Type Antibody Screen Crossmatch Microbiology Microbiology Results: Microbiology 05/24/21 Unknown Urine Culture - Final Urine Catheterized - Colon Catheter Assessment and Plan (1) PAF (paroxysmal atrial fibrillation): Status: Acute (2) Acute on chronic diastolic (congestive) heart failure: Status: Acute (3) Afib: Status: Acute (4) Diabetes: Status: Acute (5) Acute UTI: Status: Acute (6) Anemia: Status: Acute Assessment and Plan: 80-year-old female with a past medical history of hypertension, hyperlipidemia, diabetes, CHF, AFib, CLL, anemia, chronic AFib, GERD, recent admission to the [facility] on 04/10/2021 for acute blood loss anemia? Secondary to GI bleed -discontinued Eliquis, hematuria, obstructive uropathy, UTI, renal stones - [facility] to the hospital today with a chief complaint of unwitnessed fall. unwitnessed fall/generalized weakness Likely due to poor by mouth intake, recent bout of UTI CT head and cervical spine showed no acute abnormality Patient awake alert unable to provide history surrounding fall? PT eval once more awake, alert. toxic metabolic encephalopathy/ Visual hallucination Resolved Likely was due to UTI/pneumonia/hypernatremia and change in place as per healthcare proxy patient previously was on Remeron that was recently discontinued due to concern for side effects will consider low-dose risperidone if patient develops recurrent hallucinations Multifocal pneumonia: Suspected aspiration.? 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 UTI:? History of recurrent UTIs Likely due to bilateral ureter stone/bilateral stent placement, status post Colon catheter Urine culture grew mixed opal likely because patient was on antibiotics Urine remains cloudy, with elevated WBC will continue Zosyn follow clinical course Continue Colon catheter, recent admission to [facility] due to obstructive uropathy/ hydronephrosis/renal calculi, repeat renal ultrasound limited study showed no abnormality. Mild hypernatremia: Due to decreased by mouth intake, will give IV fluids push by mouth fluids and follow BMP Acute on chronic diastolic CHF:? Treated with Lasix in the emergency room at present appears euvolemic, has nonpitting edema, hold Lasix follow clinical course, will give protein supplement likely low albumin And anemia contributing to edema Acute on Chronic Anemia:? With history of recent hematuria status post 2 units of packed RBC at [facility], stool guaiac positive, hematocrit is stable, no history of GI bleed , will DC IV PPI Patient evaluated by Dr. Carvajal, she has requested records from [facility]. Diabetes:? Blood sugars stable continue?low-dose Lantus and Insulin sliding scale.? History of chronic AFib: Currently rate controlled, Eliquis was discontinued during last admission in March at [facility] secondary to hematuria. Stage II coccyx ulcer will give high-protein diet frequent position change DVT prophylaxis:? compression boots Code status:? DNR/ DNI-patient has molst form. Quality Stroke Does the patient have a stroke diagnosis?: No VTE Prior VTE?: No VTE Risk Level:: Medical - moderate - high VTE Device Contraindication: Treatment Not Indicated VTE Drug Contraindication: N/A - Med Ordered
[2021-05-25 16:43] LABS: Glucose, Whole Blood 194 mg/dL (60-115)
[2021-05-25 18:00] LABS: Hematocrit 27.6 % (37.0-47.0); Hemoglobin 8.1 g/dl (12.0-16.0)
[2021-05-25 18:15] LABS: Anion Gap 9 (12-20); Blood Urea Nitrogen 19 mg/dL (9-16); Calcium 7.5 mg/dL (8.4-10.2); Carbon Dioxide 38 mmol/L (22-29); Chloride 99 mmol/L (96-108); Creatinine Clr Calc Pharmacy 48.5; Estimated Glomerular Filt Rate > 60; Glucose Random 241 mg/dL (60-115); Potassium 3.6 mmol/L (3.3-5.1); Sodium 142 mmol/L (135-145)
[2021-05-25 19:35] LABS: Glucose, Whole Blood 173 mg/dL (60-115)
[2021-05-25] MEDS: Melatonin 3 MG TABLET 6 MG PO (23:50)
[2021-05-26] VITALS (8 sets, daily range): BP systolic 100–117; BP diastolic 52–68; PULSE 56–88; RESP 18–21; TEMP 36.1–36.6; O2SAT 97–99
[2021-05-26 00:21] LABS: Appearance Urine HAZY; Color Urine OTHER; Glucose Urine UA NEG (NEG); Leukocyte Esterase Urine 2+ (NEG); Nitrite Urine NEG (NEG); Specific Gravity - Urine 1.015 (1.005-1.025); UACC Culture Trigger YES; Urine Blood 3+ (NEG); Urine Ketones NEG (NEG); Urine Protein 2+ MG/DL (NEG-TRACE)
[2021-05-26 00:55] LABS: Bacteria Urine TRACE /LPF; Mucus Urine 1+ /LPF; WBC Urine 30-49 /HPF (0-4)
[2021-05-26] MEDS: Piperacillin Sodium/Tazobactam 3.375 GM in 0.9 % Sodium Chloride 50 ML IV ×3 (04:00→20:18)
[2021-05-26] MEDS: Omeprazole 20 MG CAPSULE.DR PO (06:03)
[2021-05-26 06:13] LABS: MANUAL DIFF FLAG NO
[2021-05-26 06:58] LABS: Anion Gap 13 (12-20); Blood Urea Nitrogen 18 mg/dL (9-16); Calcium 7.6 mg/dL (8.4-10.2); Carbon Dioxide 36 mmol/L (22-29); Chloride 100 mmol/L (96-108); Creatinine Clr Calc Pharmacy 57.6; Estimated Glomerular Filt Rate > 60; Glucose Random 81 mg/dL (60-115); Potassium 3.7 mmol/L (3.3-5.1); Sodium 145 mmol/L (135-145)
[2021-05-26 07:08] LABS: Basophils Percent Auto 0.1 % (0-2); Eosinophils Absolute Auto 0.2 X10*3/uL (0.0-0.4); Eosinophils Percent Auto 1.3 % (0-4); Hematocrit 27.4 % (37.0-47.0); Hemoglobin 8.3 g/dl (12.0-16.0); Imm Gran Pct Auto 1.6 % (0.0-0.4); Lymphocytes Absolute Auto 3.9 X10*3/uL (1.2-4.9); Lymphocytes Percent Auto 30.6 % (20-40); Mean Corpuscular HGB Conc 30.3 g/dl (31.0-35.0); Mean Corpuscular Hemoglobin 27.2 pg (27.0-33.0); Mean Corpuscular Volume 89.8 fL (80.0-98.0); Monocytes Absolute Auto 0.7 X10*3/uL (0.1-1.2); Monocytes Percent Auto 5.1 % (2-11); Neutrophils Absolute Auto 7.8 x10*3/uL (2.0-8.3); Neutrophils Percent Auto 61.3 % (45-73); Platelet Count 259 X10*3/uL (160-400); Red Blood Count 3.05 X10*6/uL (4.20-5.50); Red Cell Distribution Width 16.4 % (11.0-16.0); White Blood Count 12.7 X10*3/uL (4.8-10.8)
[2021-05-26 07:21] LABS: Glucose, Whole Blood 81 mg/dL (60-115)
--- NOTE | 2021-05-26 08:06 | PC.NURSE ---
Skin/wound assessment. Patient has stage 2 pressure ulcer to coccyx-Triad applied covered with large foam dressing. Scattered bruising on arms. No other skin issues noted at this time.
--- NOTE | 2021-05-26 08:31 | P.CNUR_ITS ---
History of Present Illness Consult details Consult date: 05/26/21 Narrative: 80-year-old female. Admitted for question of urosepsis with unwitnessed [facility] Recent admission to [facility] with GI bleed, incomplete bladder emptying, UTI, CHF exacerbation. Background significant for insulin-dependent diabetes. Based on frequency of recurring UTI suspect neurogenic bladder secondary to longstanding diabetes. Incomplete bladder emptying. Has been placed on tamsulosin is in alpha-nghia to assist with bladder relaxation. Will add bethanechol to assist with bladder emptying. Would benefit starting vitamin-C and methenamine as outpatient for preventative. Review of Systems Constitutional: Constitutional: Denies chills and Denies fever(s) Cardiovascular: Cardiovascular: Reports no additional cardiovascular complaints and Denies syncope Respiratory: Respiratory: Denies cough Gastrointestinal: Gastrointestinal: Denies abdominal pain and Denies heartburn Genitourinary: Genitourinary: Reports as per HPI and Denies change in libido Neurologic: Denies syncope Psychiatric: Psychiatric: Denies change in libido Endocrine: Endocrine: Denies change in libido [facility] Past Medical History Medical History (Updated 05/26/21 @ 08:34 by Balwinder Villarreal MD) Afib Diabetes HTN (hypertension) Social History Social History Household Members: None Housing: Apartment Do you presently have visiting nurse or other home services: Yes Patient Tobacco Use Status: Never used Tobacco service: No Current occupational status: retired Meds Allergies Allergy/AdvReac Type Severity Reaction Status Date / Time meperidine [From DEMEROL] Allergy Unknown RASH Verified 05/24/21 04:42 metformin [METFORMIN] Allergy Unknown DIARRHEA Verified 05/24/21 04:42 demerol Allergy Unknown itching Uncoded 05/24/21 04:42 metformin Allergy Unknown vomiting Uncoded 05/24/21 04:42 Active Medications: Current Medications Acetaminophen (Acetaminophen 325 Mg Tablet) 650 mg PO Q6H PRN PRN Reason: Pain, Mild (Pain Scale 1-3) Acetaminophen (Acetaminophen 325 Mg Tablet) 975 mg PO TID [facility] Last Admin: 05/25/21 19:59 Dose: 975 mg Documented by: Amiodarone HCl (Amiodarone Hcl 200 Mg Tablet) 200 mg PO DAILY [facility] Last Admin: 05/25/21 08:30 Dose: 200 mg Documented by: Dextrose (Dextrose 50 % 25 Gm/50 Ml Vial) 25 gm IVPUSH Q15M PRN; Protocol PRN Reason: per Hypoglycemia Standing Ord. Docusate Sodium (Docusate Sodium 100 Mg Capsule) 100 mg PO DAILY PRN PRN Reason: Constipation Glucose (Glucose Gel 15 Gm Gel..Gram.) 15 gm PO Q15M PRN; Protocol PRN Reason: per Hypoglycemia Standing Ord. Piperacillin Sod/Tazobactam (Sod 3.375 gm/ Sodium Chloride) 50 mls @ 100 mls/hr IV Q8H [facility] Last Infusion: 05/26/21 04:34 Dose: Infused Documented by: Insulin Glargine (Insulin Glargine,Hum.Rec.Anlog 100 Unit/Ml 10 Ml Vial) 8 unit SUBCUT BEDTIME [facility] Last Admin: 05/25/21 19:51 Dose: Not Given Documented by: Insulin Human Lispro (Insulin Lispro 100 Unit/Ml 3 Ml Vial) 0 unit SUBCUT QIDACHS [facility]; Protocol Last Admin: 05/26/21 08:26 Dose: Not Given Documented by: Melatonin (Melatonin 3 Mg Tablet) 6 mg PO BEDTIME PRN PRN Reason: Insomnia Last Admin: 05/25/21 23:50 Dose: 6 mg Documented by: Omeprazole (Omeprazole 20 Mg Capsule.) 20 mg PO DAILY@0630 [facility] Last Admin: 05/26/21 06:03 Dose: 20 mg Documented by: Pharmacy Consult (Consult Rx Perform Med Rec) 1 each MISCELLANE ONCE PRN PRN Reason: Consult order Senna (Sennosides 8.6 Mg Tablet) 17.2 mg PO BEDTIME PRN PRN Reason: Constipation Sodium Chloride (0.9 % Sodium Chloride Flush 3 Ml Syringe) 3 ml IVFLUSH QSHIFT [facility] Last Admin: 05/25/21 20:00 Dose: 3 ml Documented by: Tamsulosin HCl (Tamsulosin Hcl 0.4 Mg Capsule) 0.4 mg PO DAILY [facility] Last Admin: 05/25/21 08:30 Dose: 0.4 mg Documented by: Home Medications Medication Instructions Recorded Confirmed Last Taken Type amiodarone 200 mg tablet 200 mg PO DAILY 03/26/21 05/24/21 03/26/21 History rosuvastatin 5 mg tablet 1 tab PO DAILY 1005/24/21 03/26/21 History acetaminophen 500 mg tablet 1,000 mg PO TID 05/24/21 05/24/21 Unknown History chlorhexidine gluconate 0.12 % 30 ml BUCCAL BID 05/24/21 05/24/21 Unknown Hist ory mouthwash (Peridex) insulin glargine 100 unit/mL (3 8 unit SUBCUT BEDTIME 05/24/21 05/24/21 Unknown History mL) subcutaneous pen (Lantus Solostar U-100 Insulin) levofloxacin 500 mg tablet 500 mg PO DAILY 05/24/21 05/24/21 Unknown History melatonin 5 mg tablet 5 mg PO BEDTIME PRN 05/24/21 05/24/21 Unknown History nystatin 100,000 unit/gram topical 1 appl TOPICAL BID 05/24/21 05/24/21 Unknown History cream pantoprazole 40 mg tablet,delayed 40 mg PO DAILY 05/24/21 05/24/21 Unknown History release potassium chloride 20 mEq 20 meq PO DAILY 05/24/21 05/24/21 Unknown History tablet,extended release tamsulosin 0.4 mg capsule 0.4 mg PO DAILY 05/24/21 05/24/21 Unknown History Physical Exam Vital Signs: Vital Signs: Last Vital Signs Temp 97.6 F 05/26/21 07:15 Pulse 60 05/26/21 07:15 Resp 18 05/26/21 07:15 BP 100/54 L 05/26/21 07:15 Pulse Ox 98 05/26/21 07:15 Body Mass Index 30.1 Const: General: cooperative, healthy appearing, comfortable and no acute distress Orientation/consciousness: patient oriented x3 HENMT: Face and sinus: Yes normal facial exam Mouth: moist mucous membranes Neck: Neck: Yes normal visual inspection, Yes full ROM and Yes trachea midline Chest: Chest palpation & inspection: normal inspection of the chest Resp: Effort & Inspection: normal respiratory effort, able to speak in complete sentences and no respiratory distress GI: Inspection: Yes normal to inspection Back/Spine/Pelvis: Cervical Spine: normal cervical lordosis Thoracic/Lumbar Spine: thoracic and lumbar spine normal to inspection Skin: General skin exam: no rashes or lesions noted Neuro: General: patient oriented x3, gait normal, tone normal and moves all extremities Extrem: General: Yes normal to inspection and Yes capillary refill normal Results Labs Result diagrams: 05/26/21 05:46 05/26/21 05:46 Labs: Abnormal lab results 05/24/21 05/25/21 05/25/21 Range/Units 02:30 11:04 15:44 WBC (4.8-10.8) X10*3/uL RBC (4.20-5.50) X10*6/uL Hgb (12.0-16.0) g/dl Hct (37.0-47.0) % MCHC (31.0-35.0) g/dl RDW (11.0-16.0) % MPV (9.4-12.3) fL Immature Gran % (Auto) (0.0-0.4) % Abs Immat Gran (auto) (0.00-0.03) X10*3/uL Carbon Dioxide (22-29) mmol/L Anion Gap (12-20) BUN (9-16) mg/dL POC Glucose 144 H 217 H (60-115) mg/dL Random Glucose (60-115) mg/dL Calcium (8.4-10.2) mg/dL Urine Protein (NEG-TRACE) MG/DL Urine Blood (NEG) Ur Leukocyte Esterase (NEG) Urine RBC (0) /HPF Urine WBC (0-4) /HPF Crossmatch See Detail 05/25/21 05/25/21 05/25/21 Range/Units 16:40 17:53 17:53 WBC (4.8-10.8) X10*3/uL RBC (4.20-5.50) X10*6/uL Hgb 8.1 L (12.0-16.0) g/dl Hct 27.6 L (37.0-47.0) % MCHC (31.0-35.0) g/dl RDW (11.0-16.0) % MPV (9.4-12.3) fL Immature Gran % (Auto) (0.0-0.4) % Abs Immat Gran (auto) (0.00-0.03) X10*3/uL Carbon Dioxide 38 H (22-29) mmol/L Anion Gap 9 L (12-20) BUN 19 H (9-16) mg/dL POC Glucose 194 H (60-115) mg/dL Random Glucose 241 H (60-115) mg/dL Calcium 7.5 L (8.4-10.2) mg/dL Urine Protein (NEG-TRACE) MG/DL Urine Blood (NEG) Ur Leukocyte Esterase (NEG) Urine RBC (0) /HPF Urine WBC (0-4) /HPF Crossmatch 05/25/21 05/26/21 05/26/21 Range/Units 19:27 00:07 05:46 WBC 12.7 H (4.8-10.8) X10*3/uL RBC 3.05 L (4.20-5.50) X10*6/uL Hgb 8.3 L (12.0-16.0) g/dl Hct 27.4 L (37.0-47.0) % MCHC 30.3 L (31.0-35.0) g/dl RDW 16.4 H (11.0-16.0) % MPV 9.0 L (9.4-12.3) fL Immature Gran % (Auto) 1.6 H (0.0-0.4) % Abs Immat Gran (auto) 0.20 H (0.00-0.03) X10*3/uL Carbon Dioxide (22-29) mmol/L Anion Gap (12-20) BUN (9-16) mg/dL POC Glucose 173 H (60-115) mg/dL Random Glucose (60-115) mg/dL Calcium (8.4-10.2) mg/dL Urine Protein 2+ H (NEG-TRACE) MG/DL Urine Blood 3+ H (NEG) Ur Leukocyte Esterase 2+ H (NEG) Urine RBC 15-29 H (0) /HPF Urine WBC 30-49 H (0-4) /HPF Crossmatch 05/26/21 Range/Units 05:46 WBC (4.8-10.8) X10*3/uL RBC (4.20-5.50) X10*6/uL Hgb (12.0-16.0) g/dl Hct (37.0-47.0) % MCHC (31.0-35.0) g/dl RDW (11.0-16.0) % MPV (9.4-12.3) fL Immature Gran % (Auto) (0.0-0.4) % Abs Immat Gran (auto) (0.00-0.03) X10*3/uL Carbon Dioxide 36 H (22-29) mmol/L Anion Gap (12-20) BUN 18 H (9-16) mg/dL POC Glucose (60-115) mg/dL Random Glucose (60-115) mg/dL Calcium 7.6 L (8.4-10.2) mg/dL Urine Protein (NEG-TRACE) MG/DL Urine Blood (NEG) Ur Leukocyte Esterase (NEG) Urine RBC (0) /HPF Urine WBC (0-4) /HPF Crossmatch Short CBC 05/25/21 05/26/21 Range/Units 17:53 05:46 WBC 12.7 H (4.8-10.8) X10*3/uL Hgb 8.1 L 8.3 L (12.0-16.0) g/dl Hct 27.6 L 27.4 L (37.0-47.0) % Plt Count 259 (160-400) X10*3/uL BMP 05/25/21 05/26/21 17:53 05:46 Sodium 142 145 Potassium 3.6 3.7 Chloride 99 100 Carbon Dioxide 38 H 36 H BUN 19 H 18 H Creatinine 0.88 0.74 Calcium 7.5 L 7.6 L Urine 05/24/21 05/26/21 Range/Units 02:32 00:07 Urine Color YELLOW OTHER Urine Appearance TURBID HAZY Urine pH 7.0 6.0 (5.0-8.0) Ur Specific [place] 1.020 1.015 (1.005-1.025) Urine Protein 2+ H 2+ H (NEG-TRACE) MG/DL Urine Glucose (UA) NEG NEG (NEG) MG/DL All other labs normal. Assessment and Plan (1) Acute UTI: Status: Acute (2) Urinary retention with incomplete bladder emptying: Status: Acute Bethanechol to assist bladder emptying Procedures Date of Service Date of Service: 05/26/21
[2021-05-26] MEDS: Acetaminophen 325 MG TABLET 975 MG PO ×2 (08:56→20:19)
[2021-05-26] MEDS: Bethanechol Chloride 25 MG TABLET PO ×2 (08:56→20:19)
[2021-05-26] MEDS: Tamsulosin HCL 0.4 MG CAPSULE PO (08:57)
[2021-05-26] MEDS: 0.9 % Sodium Chloride Flush 3 ML SYRINGE IVFLUSH ×2 (08:57→20:19)
[2021-05-26] MEDS: Amiodarone HCL 200 MG TABLET PO (08:58)
[2021-05-26 11:06] LABS: Glucose, Whole Blood 103 mg/dL (60-115)
--- NOTE | 2021-05-26 12:21 | MHC.CLN ---
Addendum entered by Margaret Saravia, MANUELITO 05/26/21 13:41: AGREE WITH PROVIDER'S ASSESSMENT BELOW Original Note: F/U PT HAS STAGE II PRESSURE INJURY TO COCCYX DIET RX: 2000 DM PUREED (NDD1) WITH NECTAR THICK LIQUIDS-APPROPRIATE PO INTAKE VARIABLE DOCUMENTED 25% X 1 MEAL, 50% X 1 MEAL, 75% X 1 MEAL PT RECEIVING GLUCERNA SUPPLEMENT BID TO PROVIDE 474 KCALS AND 20 GRAMS PROTEIN CONTINUE TO MONITOR PO INTAKE CLOSELY
--- NOTE | 2021-05-26 14:31 | HO.PM.IMPN ---
Subjective Subjective Date of Service: 05/27/21 Interval History: Patient awake alert offers no acute complaints of pain, no lightheadedness, no dizziness, but was unable to sleep last night, denies hallucination, eating breakfast, patient's sister at bedside. Review of Systems General no headache, no dizziness, no fever chills, complaining of insomnia CVS no chest pain, no palpitation.? Respiratory no cough, no sob.? Gastrointestinal no nausea, no vomiting, no abdominal pain Musculoskeletal no pain Review of Systems: Yes all other systems are reviewed and are negative Physical Exam Vital Signs: Vital Signs: Last Vital Signs Temp 97.4 F 05/26/21 11:00 Pulse 62 05/26/21 11:00 Resp 18 05/26/21 11:00 BP 101/54 L 05/26/21 11:00 Pulse Ox 98 05/26/21 11:00 BMI result Body Mass Index 30.1 General awake alert,no acute distress.? Neck no JVD. CVS? regular rate rhythm, Respiratory clear to auscultation, no respiratory distress, no wheeze, no rhonchi. Gastrointestinal abdomen soft, nontender, bowel sounds audible, no guarding , no rigidity. Extremities non pitting edema. Neuro nonfocal , aphonia Skin no rash Colon catheter with cloudy Urine Psych appropriate affect Objective Data Active Medications Acetaminophen (Acetaminophen 325 Mg Tablet) 650 mg PO Q6H PRN PRN Reason: Pain, Mild (Pain Scale 1-3) Acetaminophen (Acetaminophen 325 Mg Tablet) 975 mg PO TID [facility] Last Admin: 05/26/21 08:56 Dose: 975 mg Documented by: JODEE Amiodarone HCl (Amiodarone Hcl 200 Mg Tablet) 200 mg PO DAILY [facility] Last Admin: 05/26/21 08:58 Dose: 200 mg Documented by: JODEE Bethanechol Chloride (Bethanechol Chloride 25 Mg Tablet) 25 mg PO BID [facility] Last Admin: 05/26/21 08:56 Dose: 25 mg Documented by: JODEE Dextrose (Dextrose 50 % 25 Gm/50 Ml Vial) 25 gm IVPUSH Q15M PRN; Protocol PRN Reason: per Hypoglycemia Standing Ord. Docusate Sodium (Docusate Sodium 100 Mg Capsule) 100 mg PO DAILY PRN PRN Reason: Constipation Glucose (Glucose Gel 15 Gm Gel..Gram.) 15 gm PO Q15M PRN; Protocol PRN Reason: per Hypoglycemia Standing Ord. Piperacillin Sod/Tazobactam (Sod 3.375 gm/ Sodium Chloride) 50 mls @ 100 mls/hr IV Q8H [facility] Last Infusion: 05/26/21 12:40 Dose: 0 mls/hr Documented by: JODEE Insulin Glargine (Insulin Glargine,Hum.Rec.Anlog 100 Unit/Ml 10 Ml Vial) 8 unit SUBCUT BEDTIME [facility] Last Admin: 05/25/21 19:51 Dose: Not Given Documented by: RAYO Non-Admin Reason: No Insulin Coverage Insulin Human Lispro (Insulin Lispro 100 Unit/Ml 3 Ml Vial) 0 unit SUBCUT QIDACHS [facility]; Protocol Last Admin: 05/26/21 11:12 Dose: Not Given Documented by: JODEE Non-Admin Reason: No Insulin Coverage Melatonin (Melatonin 3 Mg Tablet) 6 mg PO BEDTIME PRN PRN Reason: Insomnia Last Admin: 05/25/21 23:50 Dose: 6 mg Documented by: RAYO Omeprazole (Omeprazole 20 Mg Capsule.) 20 mg PO DAILY@0630 [facility] Last Admin: 05/26/21 06:03 Dose: 20 mg Documented by: RAYO Pharmacy Consult (Consult Rx Perform Med Rec) 1 each MISCELLANE ONCE PRN PRN Reason: Consult order Senna (Sennosides 8.6 Mg Tablet) 17.2 mg PO BEDTIME PRN PRN Reason: Constipation Sodium Chloride (0.9 % Sodium Chloride Flush 3 Ml Syringe) 3 ml IVFLUSH QSHIFT [facility] Last Admin: 05/26/21 08:57 Dose: 3 ml Documented by: JODEE Tamsulosin HCl (Tamsulosin Hcl 0.4 Mg Capsule) 0.4 mg PO DAILY [facility] Last Admin: 05/26/21 08:57 Dose: 0.4 mg Documented by: JODEE Labs CBC & Chem 7: 05/26/21 05:46 05/26/21 05:46 Labs: Laboratory Results - last 24 hr 05/25/21 05/25/21 05/25/21 15:44 16:40 17:53 MCV MCH MCHC RDW Plt Count MPV Immature Gran % (Auto) Neut % (Auto) Lymph % (Auto) [place] % (Auto) Eos % (Auto) Baso % (Auto) Lymph # (Auto) [place] # (Auto) Eos # (Auto) Baso # (Auto) Abs Immat Gran (auto) Absolute Neuts (auto) Absolute Nucleated RBC Nucleated RBC % (auto) Anion Gap 9 L Estim Creat Clear Calc 48.5 Estimated GFR > 60 POC Glucose 217 H 194 H Random Glucose 241 H Calcium 7.5 L Urine Color Urine Appearance Urine pH Ur Specific [place] Urine Protein Urine Glucose (UA) Urine Ketones Urine Blood Urine Nitrite Ur Leukocyte Esterase Urine RBC Urine WBC Ur Squamous Epith Cells Urine Bacteria Urine Mucus 05/25/21 05/26/21 05/26/21 19:27 00:07 05:46 MCV 89.8 MCH 27.2 MCHC 30.3 L RDW 16.4 H Plt Count 259 MPV 9.0 L Immature Gran % (Auto) 1.6 H Neut % (Auto) 61.3 Lymph % (Auto) 30.6 [place] % (Auto) 5.1 Eos % (Auto) 1.3 Baso % (Auto) 0.1 Lymph # (Auto) 3.9 [place] # (Auto) 0.7 Eos # (Auto) 0.2 Baso # (Auto) 0.0 Abs Immat Gran (auto) 0.20 H Absolute Neuts (auto) 7.8 Absolute Nucleated RBC 0.000 Nucleated RBC % (auto) 0.0 Anion Gap Estim Creat Clear Calc Estimated GFR POC Glucose 173 H Random Glucose Calcium Urine Color OTHER Urine Appearance HAZY Urine pH 6.0 Ur Specific [place] 1.015 Urine Protein 2+ H Urine Glucose (UA) NEG Urine Ketones NEG Urine Blood 3+ H Urine Nitrite NEG Ur Leukocyte Esterase 2+ H Urine RBC 15-29 H Urine WBC 30-49 H Ur Squamous Epith Cells NONE Urine Bacteria TRACE Urine Mucus 1+ 05/26/21 05/26/21 05/26/21 05:46 07:16 11:01 MCV MCH MCHC RDW Plt Count MPV Immature Gran % (Auto) Neut % (Auto) Lymph % (Auto) [place] % (Auto) Eos % (Auto) Baso % (Auto) Lymph # (Auto) [place] # (Auto) Eos # (Auto) Baso # (Auto) Abs Immat Gran (auto) Absolute Neuts (auto) Absolute Nucleated RBC Nucleated RBC % (auto) Anion Gap 13 Estim Creat Clear Calc 57.6 Estimated GFR > 60 POC Glucose 81 103 Random Glucose 81 Calcium 7.6 L Urine Color Urine Appearance Urine pH Ur Specific [place] Urine Protein Urine Glucose (UA) Urine Ketones Urine Blood Urine Nitrite Ur Leukocyte Esterase Urine RBC Urine WBC Ur Squamous Epith Cells Urine Bacteria Urine Mucus Assessment and Plan (1) Urinary retention with incomplete bladder emptying: Status: Acute (2) PAF (paroxysmal atrial fibrillation): Status: Acute (3) Acute on chronic diastolic (congestive) heart failure: Status: Acute (4) Afib: Status: Acute (5) Diabetes: Status: Acute (6) Acute UTI: Status: Acute (7) Anemia: Status: Acute Assessment and Plan: 80-year-old female with a past medical history of hypertension, hyperlipidemia, diabetes, CHF, AFib, CLL, anemia, chronic AFib, GERD, recent admission to the [facility] on 04/10/2021 for acute blood loss anemia? Secondary to GI bleed -discontinued Eliquis, hematuria, obstructive uropathy, UTI, renal stones [facility] presented to the hospital today with a chief complaint of unwitnessed fall. unwitnessed fall/generalized weakness Likely due to poor by mouth intake, recent bout of UTI CT head and cervical spine showed no acute abnormality Patient awake alert unable to provide history surrounding fall? PT recommend extensive rehab upon discharge, patient may benefit from mechanical lift out of bed to chair at this time. toxic metabolic encephalopathy/ Visual hallucination Resolved, no recurrent episodes Likely was due to UTI/pneumonia/hypernatremia and change in place as per healthcare proxy patient previously was on Remeron that was recently discontinued due to concern for side effects will consider low-dose risperidone if patient develops recurrent hallucinations Multifocal pneumonia: Suspected aspiration.? 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 UTI with sepsis present on admission recurrent UTIs in last couple months Likely due to bilateral ureter stone/bilateral stent placement at [facility] April 20 with removal of stones, status post Colon catheter Urine culture grew mixed opal ,urine remains cloudy, WBC slowly trending down, continue IV Zosyn day 3 Consulted Urology for possible removal of stent, patient seen by Dr. Villarreal and placed on urecholine with concern for neurogenic bladder secondary to longstanding diabetes with incomplete bladder emptying Insomnia Will give scheduled melatonin. Mild hypernatremia: Resolved will push by mouth fluids Acute on chronic diastolic CHF:? Treated with Lasix in the emergency room at present appears euvolemic, has non pitting edema, hold Lasix follow clinical course, continue protein supplement likely low albumin And anemia contributing to edema Acute on Chronic Anemia:? With history of recent hematuria status post 2 units of packed RBC at [facility], stool guaiac positive, Hematocrit dropped to 24 on 05/25 therefore give 1 unit of packed RBC hematocrit improved to 27.4 today, no active GI bleed noted Workup at [facility] was not consistent with iron deficiency anemia likely has anemia of chronic disease, patient refusing a GI workup, case discussed with patient healthcare proxy she agrees with patient decision Patient evaluated by Dr. Carvajal, she has requested records from [facility]. Diabetes:? Blood sugars stable continue?low-dose Lantus and Insulin sliding scale, patient noted to have low blood sugars at [facility] and dose of Lantus was recently reduced History of chronic AFib: Currently rate controlled, Eliquis was discontinued during last admission in March at [facility] secondary to hematuria. Continue amiodarone Stage II coccyx ulcer will give high-protein diet frequent position change DVT prophylaxis:? compression boots Code status:? DNR/ DNI-patient has molst form. Quality Stroke Does the patient have a stroke diagnosis?: No VTE Prior VTE?: No VTE Risk Level:: Medical - moderate - high VTE Device Contraindication: Treatment Not Indicated VTE Drug Contraindication: N/A - Med Ordered
--- NOTE | 2021-05-26 14:50 | MHC.CM.PN ---
PER ROUNDS PT NOT =READY FOR DC BED IS BEING HELD FOR, PT At [facility]
[2021-05-26 16:25] LABS: Glucose, Whole Blood 123 mg/dL (60-115)
--- NOTE | 2021-05-26 16:55 | MHC.SL.DTX ---
Dysphagia Diet modifications: Last documented Solid diet consistencies: Pureed (NDD1) Last documented Liquid consistency: [place] Thick Last documented Medication Administration: whole with liquids Changes made to current diet?: Yes: upgrade to NDD3 CHOPPED/ADVANCED solids and THIN liquids Liquid Consistency and Strategies: Liquid Intake Recommendation: Thin Compensatory Strategies for Safe Swallow: Small Sips No Straws Compensatory Strategies for Safe Swallow(b): Sitting Upright (90 deg) No Straw Liquids from Spoon Alternate Liquids/Solids Rate of Ingestion Change Oral Check Solid Food Consistency: Dietary Recommendations: Chopped/Advanced (NDD3) Additional Modifications to Solids: extra sauce/gravy on meats Oral Medication Intake: Whole with Liquid Strategies and Precautions to be Taken for Safe Swallow: Sitting Upright (90 deg) No Straw Liquids from Spoon Alternate Liquids/Solids Rate of Ingestion Change Oral Check Supervision While Eating and/Drinking: Total Supervision (1:1) Swallowing Recommended Treatments: Compens. Strategy Educat. Level of Impact on: Daily activities: Severe Community: Severe Prognosis for Improvement: Good Recommendation for Speech: Inpatient Speech Therapy Speech Therapy through Rehab Facility Comment: Recommend continue inpatient speech therapy for oropharyngeal dysphagia. Patient may benefit from continued speech therapy services at next level of care for dysphagia and voice/communication. Pt was very pleased with the recommendation to advance to NDD3 CHOPPED/ADVANCED solids and THIN liquids via small, single cup sips (NO STRAWS). RN was notified via secure text and pt's diet order was changed by this SPEECH LANGUAGE PATHOLOGY ASSISTANT to reflect upgrade. SPEECH LANGUAGE PATHOLOGY ASSISTANT will continue to follow pt throughout her stay to determine the safest and least restrictive diet consistency. Environmental Services Tech Clinican/Clinical Fellow: No Supervisory Statement: I have reviewed and agree with the student/clinical fellow's documentation: N/A Speech Language Pathologist: Kristen Serrato M.A., CCC-SPEECH LANGUAGE PATHOLOGY ASSISTANT
[2021-05-26 19:46] LABS: Glucose, Whole Blood 141 mg/dL (60-115)
[2021-05-27 03:21] VITALS: BP 110/62; PULSE 62; RESP 18; TEMP 36.4; O2SAT 99
[2021-05-27] MEDS: Omeprazole 20 MG CAPSULE.DR PO (04:46)
[2021-05-27] MEDS: Piperacillin Sodium/Tazobactam 3.375 GM in 0.9 % Sodium Chloride 50 ML IV ×3 (04:46→20:49)
[2021-05-27 07:37] VITALS: BP 123/60; PULSE 68; RESP 18; TEMP 36.8; O2SAT 94
[2021-05-27 08:06] LABS: Glucose, Whole Blood 89 mg/dL (60-115)
[2021-05-27 09:44] VITALS: BP 123/60; PULSE 68
[2021-05-27] MEDS: Bethanechol Chloride 25 MG TABLET PO ×2 (09:44→20:50)
[2021-05-27] MEDS: Tamsulosin HCL 0.4 MG CAPSULE PO (09:44)
[2021-05-27] MEDS: Acetaminophen 325 MG TABLET 975 MG PO ×3 (09:44→20:50)
[2021-05-27] MEDS: Amiodarone HCL 200 MG TABLET PO (09:44)
[2021-05-27] MEDS: 0.9 % Sodium Chloride Flush 3 ML SYRINGE IVFLUSH ×3 (09:45→23:32)
[2021-05-27 11:17] VITALS: BP 119/56; PULSE 75; RESP 18; TEMP 36.7; O2SAT 99
[2021-05-27 11:32] LABS: Glucose, Whole Blood 109 mg/dL (60-115)
--- NOTE | 2021-05-27 12:05 | MHC.SL.SWA ---
Speech Pathologist Impression: Risk of Aspiration Oralpharyngeal Dysphagia Risk of Aspiration Due to: History of Pneumonia Weak Cough Weak Voice Dysphasia Diet Status: Upgrade Liquid Consistency and Strategies for Safe Swallow: Liquid Intake Recommendation: Thin Liquid Intake Strategies: Chin Tuck with Liquids Solid Food Consistency: Dietary Recommendations: Chopped/Advanced (NDD3) Additional Modifications to Solid Foods: extra sauce/gravy on meats Oral Medication Intake: Whole with Liquid Compensatory Strategies and Precautions to be Taken for Safe Swallow: Sitting Upright (90 deg) Chin Tuck Liquids from Cup Alternate Liquids/Solids Supervision While Eating and Drinking for Safe Swallow: Intermittent Supervision Foods to Avoid: Swallowing Recommended Treatments: Compens. Strategy Educat. Recommendation for Speech: Inpatient Speech Therapy Speech Therapy through Rehab Facility Comment: Pt seen today to assess toleration of diet (05/27 updated to THIN liquid with CHOPPED/ADVANCED (NDD3). Pt was awake, alert, pleasantly communicative. She reported that she had breakfast of scrambled eggs and juice this morning, and reported no difficulty. 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 Pt reported that she had Speech TX for two years following the incident. Pt further reported that she routinely uses chin tuck strategy on swallowing liquids to protect airway. On cup sips of thin liquid, Pt used chin tuck and demonstrated a timely swallow w/ no s/s aspiration. Pt took bite of soft solid, had prolonged oral phase due to careful chewing, and timely swallow w/ no s/s aspiration. Pt is tolerating current diet well, has greatly improved affect. Recommend continue inpatient speech therapy for oropharyngeal dysphagia. Patient may benefit from continued speech therapy services at next level of care for dysphagia and voice/communication. Frequency/Duration: Date Range for Service Req: Timeline to reassess: [employer]anch[employer] Business Consultant Clinican/Clinical Fellow: No Supervisory Statement: I have reviewed and agree with the student/clinical fellow's documentation: N/A Speech Language Pathologist: Shara Saenz M.A., CCC-UNDERCUTTER
[2021-05-27 15:43] VITALS: BP 118/57; PULSE 68; RESP 18; TEMP 36.6; O2SAT 99
--- NOTE | 2021-05-27 16:10 | P.PNIM_ITS ---
Subjective Subjective Date of Service: 05/27/21 Interval History: Awake alert this morning offers no acute complaints slept well, no hallucination, no shortness of breath, no chest pain. Review of Systems General no headache, no dizziness, no fever chills, CVS no chest pain, no palpitation.? Respiratory no cough, no sob.? Gastrointestinal no nausea, no vomiting, no abdominal pain Musculoskeletal no pain Review of Systems: Yes all other systems are reviewed and are negative Physical Exam Vital Signs: Vital Signs: Last Vital Signs Temp 97.8 F 05/27/21 15:43 Pulse 68 05/27/21 15:43 Resp 18 05/27/21 15:43 BP 118/57 L 05/27/21 15:43 Pulse Ox 99 05/27/21 15:43 BMI result Body Mass Index 30.1 General awake alert,no acute distress.? Neck no JVD. CVS? regular rate rhythm, Respiratory clear to auscultation, no respiratory distress, no wheeze, no rhonchi. Gastrointestinal abdomen soft, nontender, bowel sounds audible, no guarding , no rigidity. Extremities non pitting edema. Neuro nonfocal , aphonia Skin no rash Colon catheter with less cloudy Urine Psych appropriate affect Objective Data Active Medications Acetaminophen (Acetaminophen 325 Mg Tablet) 650 mg PO Q6H PRN PRN Reason: Pain, Mild (Pain Scale 1-3) Acetaminophen (Acetaminophen 325 Mg Tablet) 975 mg PO TID [facility] Last Admin: 05/27/21 09:44 Dose: 975 mg Documented by: DIDI Amiodarone HCl (Amiodarone Hcl 200 Mg Tablet) 200 mg PO DAILY [facility] Last Admin: 05/27/21 09:44 Dose: 200 mg Documented by: DIDI Bethanechol Chloride (Bethanechol Chloride 25 Mg Tablet) 25 mg PO BID [facility] Last Admin: 05/27/21 09:44 Dose: 25 mg Documented by: DIDI Dextrose (Dextrose 50 % 25 Gm/50 Ml Vial) 25 gm IVPUSH Q15M PRN; Protocol PRN Reason: per Hypoglycemia Standing Ord. Docusate Sodium (Docusate Sodium 100 Mg Capsule) 100 mg PO DAILY PRN PRN Reason: Constipation Glucose (Glucose Gel 15 Gm Gel..Gram.) 15 gm PO Q15M PRN; Protocol PRN Reason: per Hypoglycemia Standing Ord. Piperacillin Sod/Tazobactam (Sod 3.375 gm/ Sodium Chloride) 50 mls @ 100 mls/hr IV Q8H [facility] Last Infusion: 05/27/21 13:25 Dose: 0 mls/hr Documented by: DIDI Insulin Glargine (Insulin Glargine,Hum.Rec.Anlog 100 Unit/Ml 10 Ml Vial) 8 unit SUBCUT BEDTIME [facility] Last Admin: 05/26/21 20:22 Dose: Not Given Documented by: RAYO Non-Admin Reason: No Insulin Coverage Insulin Human Lispro (Insulin Lispro 100 Unit/Ml 3 Ml Vial) 0 unit SUBCUT QIDACHS [facility]; Protocol Last Admin: 05/27/21 12:37 Dose: Not Given Documented by: DIDI Non-Admin Reason: No Insulin Coverage Melatonin (Melatonin 3 Mg Tablet) 6 mg PO BEDTIME PRN PRN Reason: Insomnia Last Admin: 05/25/21 23:50 Dose: 6 mg Documented by: RAYO Omeprazole (Omeprazole 20 Mg Capsule.) 20 mg PO DAILY@0630 [facility] Last Admin: 05/27/21 04:46 Dose: 20 mg Documented by: RAYO Pharmacy Consult (Consult Rx Perform Med Rec) 1 each MISCELLANE ONCE PRN PRN Reason: Consult order Senna (Sennosides 8.6 Mg Tablet) 17.2 mg PO BEDTIME PRN PRN Reason: Constipation Sodium Chloride (0.9 % Sodium Chloride Flush 3 Ml Syringe) 3 ml IVFLUSH QSHIFT [facility] Last Admin: 05/27/21 09:45 Dose: 3 ml Documented by: DIDI Tamsulosin HCl (Tamsulosin Hcl 0.4 Mg Capsule) 0.4 mg PO DAILY [facility] Last Admin: 05/27/21 09:44 Dose: 0.4 mg Documented by: DIDI Labs CBC & Chem 7: 05/26/21 05:46 05/26/21 05:46 Labs: Laboratory Results - last 24 hr 05/26/21 05/26/21 05/27/21 16:15 19:42 07:35 POC Glucose 123 H 141 H 89 05/27/21 11:18 POC Glucose 109 Assessment and Plan (1) Urinary retention with incomplete bladder emptying: Status: Acute (2) PAF (paroxysmal atrial fibrillation): Status: Acute (3) Acute on chronic diastolic (congestive) heart failure: Status: Acute (4) Afib: Status: Acute (5) Diabetes: Status: Acute (6) Acute UTI: Status: Acute (7) Sepsis: Status: Acute (8) Anemia: Status: Acute Assessment and Plan: 80-year-old female with a past medical history of hypertension, hyperlipidemia, diabetes, CHF, AFib, CLL, anemia, chronic AFib, GERD, recent admission to the [facility] on 04/10/2021 for acute blood loss anemia? Secondary to GI bleed -discontinued Eliquis, hematuria, obstructive uropathy, UTI, renal stones [facility] to the hospital today with a chief complaint of unwitnessed fall. unwitnessed fall/generalized weakness Likely due to poor by mouth intake, recent bout of UTI CT head and cervical spine showed no acute abnormality Patient awake alert unable to provide history surrounding fall? PT recommend extensive rehab upon discharge toxic metabolic encephalopathy/ Visual hallucination Resolved Likely was due to UTI/pneumonia/hypernatremia and change in place as per healthcare proxy patient previously was on Remeron that was recently disc ontinued due to concern for side effects will consider low-dose risperidone if patient develops recurrent hallucinations No recurrent episodes of hallucinations since admit Multifocal pneumonia: Suspected aspiration.? 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 Consulted Urology for possible removal of stent, Dr. Villarreal will do bedside removal of stents tomorrow will keep her NPO Insomnia Continue scheduled melatonin. Mild hypernatremia:? Resolved will push by mouth fluids follow BMP Acute on chronic diastolic CHF:? Treated with Lasix in the emergency room at present appears euvolemic, has non pitting edema, hold Lasix follow clinical course, continue protein supplement likely low albumin And anemia contributing to edema Acute on Chronic Anemia:? With history of recent hematuria status post 2 units of packed RBC at [facility], stool guaiac positive, Hematocrit dropped to 24 on 05/25 therefore give 1 unit of packed RBC hematocrit improved to 27.4 , no active GI bleed noted Reviewed old record from [facility] Workup at [facility] was not consistent with iron deficiency anemia likely has anemia of chronic disease, patient evaluated by Dr. Carvajal, patient refused GI workup Diabetes:? Blood sugars stable continue?low-dose Lantus and Insulin sliding scale, patient noted to have low blood sugars at [facility] and dose of Lantus was recently reduced History of chronic AFib: Currently rate controlled, Eliquis was discontinued during last admission in March at [facility] secondary to hematuria.? Continue amiodarone Stage II coccyx ulcer on high-protein diet frequent position change DVT prophylaxis:? compression boots Code status:? DNR/ DNI-patient has molst form. Quality Stroke Does the patient have a stroke diagnosis?: No VTE Prior VTE?: No VTE Risk Level:: Medical - moderate - high VTE Device Contraindication: Treatment Not Indicated VTE Drug Contraindication: N/A - Med Ordered
[2021-05-27 16:45] LABS: Glucose, Whole Blood 181 mg/dL (60-115)
[2021-05-27] MEDS: Insulin Lispro 100 UNIT/ML 3 ML VIAL SUBCUT (16:59)
[2021-05-27 19:52] VITALS: BP 114/52; PULSE 74; RESP 15; TEMP 36.8; O2SAT 99
[2021-05-27] MEDS: Melatonin 3 MG TABLET 6 MG PO (20:50)
[2021-05-27 20:51] LABS: Glucose, Whole Blood 147 mg/dL (60-115)
[2021-05-27] MEDS: Insulin Glargine,Hum.rec.anlog 100 UNIT/ML 10 ML VIAL 8 UNIT SUBCUT (20:51)
[2021-05-28] VITALS (7 sets, daily range): BP systolic 103–141; BP diastolic 53–70; PULSE 63–73; RESP 16–20; TEMP 36.3–37; O2SAT 98–100
[2021-05-28] MEDS: Piperacillin Sodium/Tazobactam 3.375 GM in 0.9 % Sodium Chloride 50 ML IV ×3 (03:50→23:00)
[2021-05-28] MEDS: Omeprazole 20 MG CAPSULE.DR PO (05:59)
[2021-05-28 06:31] LABS: MANUAL DIFF FLAG NO
[2021-05-28 06:37] LABS: Basophils Percent Auto 0.1 % (0-2); Eosinophils Absolute Auto 0.1 X10*3/uL (0.0-0.4); Eosinophils Percent Auto 0.6 % (0-4); Hemoglobin 8.5 g/dl (12.0-16.0); Imm Gran Abs Auto 0.14 X10*3/uL (0.00-0.03); Imm Gran Pct Auto 1.1 % (0.0-0.4); Lymphocytes Absolute Auto 3.7 X10*3/uL (1.2-4.9); Lymphocytes Percent Auto 29.3 % (20-40); Mean Corpuscular HGB Conc 29.3 g/dl (31.0-35.0); Mean Corpuscular Hemoglobin 26.6 pg (27.0-33.0); Mean Corpuscular Volume 90.9 fL (80.0-98.0); Mean Platelet Volume 8.8 fL (9.4-12.3); Monocytes Absolute Auto 0.8 X10*3/uL (0.1-1.2); Monocytes Percent Auto 6.4 % (2-11); Neutrophils Absolute Auto 7.8 x10*3/uL (2.0-8.3); Neutrophils Percent Auto 62.5 % (45-73); Platelet Count 265 X10*3/uL (160-400); Red Blood Count 3.19 X10*6/uL (4.20-5.50); Red Cell Distribution Width 16.5 % (11.0-16.0); White Blood Count 12.5 X10*3/uL (4.8-10.8)
[2021-05-28 06:49] LABS: Anion Gap 10 (12-20); Blood Urea Nitrogen 17 mg/dL (9-16); Calcium 7.7 mg/dL (8.4-10.2); Carbon Dioxide 39 mmol/L (22-29); Chloride 102 mmol/L (96-108); Creatinine Clr Calc Pharmacy 64.6; Estimated Glomerular Filt Rate > 60; Glucose Random 47 mg/dL (60-115); Potassium 3.5 mmol/L (3.3-5.1); Sodium 147 mmol/L (135-145)
[2021-05-28 07:39] LABS: Glucose, Whole Blood 164 mg/dL (60-115)
[2021-05-28] MEDS: 0.9 % Sodium Chloride Flush 3 ML SYRINGE IVFLUSH (08:29)
[2021-05-28] MEDS: Tamsulosin HCL 0.4 MG CAPSULE PO (08:29)
[2021-05-28] MEDS: Bethanechol Chloride 25 MG TABLET PO ×2 (08:29→22:59)
[2021-05-28] MEDS: Amiodarone HCL 200 MG TABLET PO (08:29)
[2021-05-28] MEDS: Acetaminophen 325 MG TABLET 975 MG PO ×3 (08:29→22:59)
--- NOTE | 2021-05-28 08:43 | PM.UROPN ---
Subjective Subjective Date of Service: 05/27/21 Interval history: Zoey reviewed today Has been on antibiotics White count slowly coming down Plan for cystoscopy with stent removal at bedside tomorrow Physical Exam Vital Signs: Vital Signs: Last Vital Signs Temp 97.9 F 05/28/21 07:16 Pulse 63 05/28/21 07:16 Resp 20 05/28/21 07:16 BP 115/56 L 05/28/21 07:16 Pulse Ox 99 05/28/21 07:16 BMI result Body Mass Index 30.1 Const: General: cooperative, healthy appearing, comfortable and no acute distress Orientation/consciousness: patient oriented x3 HENMT: Face and sinus: Yes normal facial exam Mouth: moist mucous membranes Neck: Neck: Yes normal visual inspection, Yes full ROM and Yes trachea midline Chest: Chest palpation & inspection: normal inspection of the chest Resp: Effort & Inspection: normal respiratory effort, able to speak in complete sentences and no respiratory distress GI: Inspection: Yes normal to inspection Back/Spine/Pelvis: Cervical Spine: normal cervical lordosis Thoracic/Lumbar Spine: thoracic and lumbar spine normal to inspection Skin: General skin exam: no rashes or lesions noted Neuro: General: patient oriented x3, tone normal and moves all extremities Extrem: General: Yes normal to inspection and Yes capillary refill normal Urology Results Labs CBC & Chem 7: 05/28/21 05:59 05/28/21 05:59 Labs: Laboratory Results - last 24 hr 05/27/21 05/27/21 05/27/21 11:18 16:35 20:44 WBC RBC Hgb Hct MCV MCH MCHC RDW Plt Count MPV Immature Gran % (Auto) Neut % (Auto) Lymph % (Auto) [place] % (Auto) Eos % (Auto) Baso % (Auto) Lymph # (Auto) [place] # (Auto) Eos # (Auto) Baso # (Auto) Abs Immat Gran (auto) Absolute Neuts (auto) Absolute Nucleated RBC Nucleated RBC % (auto) Sodium Potassium Chloride Carbon Dioxide Anion Gap BUN Creatinine Estim Creat Clear Calc Estimated GFR POC Glucose 109 181 H 147 H Random Glucose Calcium 05/28/21 05/28/21 05/28/21 05:59 05:59 07:15 WBC 12.5 H RBC 3.19 L Hgb 8.5 L Hct 29.0 L MCV 90.9 MCH 26.6 L MCHC 29.3 L RDW 16.5 H Plt Count 265 MPV 8.8 L Immature Gran % (Auto) 1.1 H Neut % (Auto) 62.5 Lymph % (Auto) 29.3 [place] % (Auto) 6.4 Eos % (Auto) 0.6 Baso % (Auto) 0.1 Lymph # (Auto) 3.7 [place] # (Auto) 0.8 Eos # (Auto) 0.1 Baso # (Auto) 0.0 Abs Immat Gran (auto) 0.14 H Absolute Neuts (auto) 7.8 Absolute Nucleated RBC 0.000 Nucleated RBC % (auto) 0.0 Sodium 147 H Potassium 3.5 Chloride 102 Carbon Dioxide 39 H Anion Gap 10 L BUN 17 H Creatinine 0.66 Estim Creat Clear Calc 64.6 Estimated GFR > 60 POC Glucose 164 H Random Glucose 47 L* Calcium 7.7 L Progress Note: A&P Assessment and plan (1) Urinary retention with incomplete bladder emptying: Status: Acute Assessment and Plan: Cystoscopy stent removal Fall Risk Details Current Medications: Current Medications Acetaminophen (Acetaminophen 325 Mg Tablet) 650 mg PO Q6H PRN PRN Reason: Pain, Mild (Pain Scale 1-3) Acetaminophen (Acetaminophen 325 Mg Tablet) 975 mg PO TID [facility] Last Admin: 05/28/21 08:29 Dose: 975 mg Documented by: Amiodarone HCl (Amiodarone Hcl 200 Mg Tablet) 200 mg PO DAILY [facility] Last Admin: 05/28/21 08:29 Dose: 200 mg Documented by: Bethanechol Chloride (Bethanechol Chloride 25 Mg Tablet) 25 mg PO BID [facility] Last Admin: 05/28/21 08:29 Dose: 25 mg Documented by: Dextrose (Dextrose 50 % 25 Gm/50 Ml Vial) 25 gm IVPUSH Q15M PRN; Protocol PRN Reason: per Hypoglycemia Standing Ord. Last Admin: 05/28/21 06:59 Dose: 25 gm Documented by: Docusate Sodium (Docusate Sodium 100 Mg Capsule) 100 mg PO DAILY PRN PRN Reason: Constipation Glucose (Glucose Gel 15 Gm Gel..Gram.) 15 gm PO Q15M PRN; Protocol PRN Reason: per Hypoglycemia Standing Ord. Piperacillin Sod/Tazobactam (Sod 3.375 gm/ Sodium Chloride) 50 mls @ 100 mls/hr IV Q8H [facility] Last Infusion: 05/28/21 04:26 Dose: Infused Documented by: Insulin Glargine (Insulin Glargine,Hum.Rec.Anlog 100 Unit/Ml 10 Ml Vial) 8 unit SUBCUT BEDTIME [facility] Last Admin: 05/27/21 20:51 Dose: 8 unit Documented by: Insulin Human Lispro (Insulin Lispro 100 Unit/Ml 3 Ml Vial) 0 unit SUBCUT QIDACHS [facility]; Protocol Last Admin: 05/28/21 07:40 Dose: Not Given Documented by: Melatonin (Melatonin 3 Mg Tablet) 6 mg PO BEDTIME [facility] Last Admin: 05/27/21 20:50 Dose: 6 mg Documented by: Omeprazole (Omeprazole 20 Mg Capsule.) 20 mg PO DAILY@0630 [facility] Last Admin: 05/28/21 05:59 Dose: 20 mg Documented by: Pharmacy Consult (Consult Rx Perform Med Rec) 1 each MISCELLANE ONCE PRN PRN Reason: Consult order Senna (Sennosides 8.6 Mg Tablet) 17.2 mg PO BEDTIME PRN PRN Reason: Constipation Sodium Chloride (0.9 % Sodium Chloride Flush 3 Ml Syringe) 3 ml IVFLUSH QSHIFT [facility] Last Admin: 05/28/21 08:29 Dose: 3 ml Documented by: Tamsulosin HCl (Tamsulosin Hcl 0.4 Mg Capsule) 0.4 mg PO DAILY [facility] Last Admin: 05/28/21 08:29 Dose: 0.4 mg Documented by: Time Spent With Patient Time: Total time spent is greater than 50% in coordination of care (as documented) at patient's floor/unit and/or counseling patient: Time with patient: less than 15 minutes Progress Note: Quality Stroke Does the patient have a stroke diagnosis?: No
--- NOTE | 2021-05-28 10:24 | MHC.CLN ---
F/U PT IS CURRENTLY NPO SOUBRETTE REC CHOPPED WITH THIN FOR DIET CONSISTENCY 05/27 RECOMMEND ADDING ENSURE BID TO INCREASE KCALS AND PROMOTE WOUND HEALING SUPP TO PROVIDE 700KCALS, 26G PROTEIN WHEN DIET TO ADVANCE; MONITOR PO INTAKE CLOSELY
--- NOTE | 2021-05-28 10:55 | PM.PNCARD ---
Subjective Subjective Date of Service: 05/28/21 Interval history: States that she feels oK. Denies cardiac symptoms. Review of Systems Review of Systems Yes all other systems are reviewed and are negative Cardiovascular: Reports as per HPI, Reports no additional cardiovascular complaints, Denies acrocyanosis, Denies cool extremities, Denies painful fingertips, Denies chest pain, Denies chest pain at rest, Denies diaphoresis, Denies syncope, Denies irregular heart rhythm, Denies claudication, Reports leg edema, Denies lightheadedness, Denies palpitations and Reports dyspnea Respiratory: Reports dyspnea Denies syncope Endocrine: Denies palpitations Physical Exam Vital Signs: Last Vital Signs Temp 97.9 F 05/28/21 07:16 Pulse 63 05/28/21 07:16 Resp 20 05/28/21 07:16 BP 115/56 L 05/28/21 07:16 Pulse Ox 99 05/28/21 07:16 BMI result Body Mass Index 30.1 Const General: cooperative and no acute distress HENMT Other: Unremarkable Neck Neck: Yes normal visual inspection Chest Chest palpation & inspection: normal inspection of the chest Resp Other: Few basal crackles. Cardio Jugular venous distension: no JVD Palpation: normal PMI Heart sounds: S1 normal heart sound present, S2 normal heart sound present, no gallops, no murmurs and no rubs GI Palpation (GI): Soft to palpation Back/Spine/Pelvis Other: unremarkable Skin General skin exam: no rashes or lesions noted Neuro Cranial nerves: Yes Other cranial nerve findings present Extrem Other: trace edema Psych Mental Status: other Objective Labs and Meds Result diagrams: 05/28/21 05:59 05/28/21 05:59 Lab results: Laboratory Results - last 24 hr 05/27/21 05/27/21 05/27/21 11:18 16:35 20:44 WBC RBC Hgb Hct MCV MCH MCHC RDW Plt Count MPV Immature Gran % (Auto) Neut % (Auto) Lymph % (Auto) [place] % (Auto) Eos % (Auto) Baso % (Auto) Lymph # (Auto) [place] # (Auto) Eos # (Auto) Baso # (Auto) Abs Immat Gran (auto) Absolute Neuts (auto) Absolute Nucleated RBC Nucleated RBC % (auto) Sodium Potassium Chloride Carbon Dioxide Anion Gap BUN Creatinine Estim Creat Clear Calc Estimated GFR POC Glucose 109 181 H 147 H Random Glucose Calcium 12/03/21 12/03/21 12/03/21 05:59 05:59 07:15 WBC 12.5 H RBC 3.19 L Hgb 8.5 L Hct 29.0 L MCV 90.9 MCH 26.6 L MCHC 29.3 L RDW 16.5 H Plt Count 265 MPV 8.8 L Immature Gran % (Auto) 1.1 H Neut % (Auto) 62.5 Lymph % (Auto) 29.3 [place] % (Auto) 6.4 Eos % (Auto) 0.6 Baso % (Auto) 0.1 Lymph # (Auto) 3.7 [place] # (Auto) 0.8 Eos # (Auto) 0.1 Baso # (Auto) 0.0 Abs Immat Gran (auto) 0.14 H Absolute Neuts (auto) 7.8 Absolute Nucleated RBC 0.000 Nucleated RBC % (auto) 0.0 Sodium 147 H Potassium 3.5 Chloride 102 Carbon Dioxide 39 H Anion Gap 10 L BUN 17 H Creatinine 0.66 Estim Creat Clear Calc 64.6 Estimated GFR > 60 POC Glucose 164 H Random Glucose 47 L* Calcium 7.7 L Progress Note: A&P Assessment and plan (1) Acute on chronic diastolic (congestive) heart failure: Status: Acute (2) PAF (paroxysmal atrial fibrillation): Status: Acute (3) Non-rheumatic tricuspid valve insufficiency: Status: Acute (4) Pulmonary hypertension: Status: Acute Assessment and Plan: Edema is probably multifactorial. Per patient and healthcare proxy, she has been told to have low albumin which could also lead to edema/anasarca. Echocardiogram shows moderate tricuspid regurgitation and moderate to severe pulmonary hypertension with RVSP of 57 mm Hg. This could also lead to edema in the lower extremities. However, on clinical exam she does not have much of swelling today. Has received some Lasix at presentation but not on anything at this time IV. May use empirically as needed. With regard to the atrial fibrillation, previous ablations for flutter as well as relation at different times. She is maintained on chronic amiodarone and no changes with regard to that. Eliquis may be resumed when genitourinary bleeding issues resolved. Note- for Amiodarone, outside cardiology notes indicate 100mg dosing. Fall Risk Details Current Medications: Current Medications Acetaminophen (Acetaminophen 325 Mg Tablet) 650 mg PO Q6H PRN PRN Reason: Pain, Mild (Pain Scale 1-3) Acetaminophen (Acetaminophen 325 Mg Tablet) 975 mg PO TID [facility] Last Admin: 05/28/21 08:29 Dose: 975 mg Documented by: Amiodarone HCl (Amiodarone Hcl 200 Mg Tablet) 200 mg PO DAILY [facility] Last Admin: 05/28/21 08:29 Dose: 200 mg Documented by: Bethanechol Chloride (Bethanechol Chloride 25 Mg Tablet) 25 mg PO BID [facility] Last Admin: 05/28/21 08:29 Dose: 25 mg Documented by: Dextrose (Dextrose 50 % 25 Gm/50 Ml Vial) 25 gm IVPUSH Q15M PRN; Protocol PRN Reason: per Hypoglycemia Standing Ord. Last Admin: 05/28/21 06:59 Dose: 25 gm Documented by: Docusate Sodium (Docusate Sodium 100 Mg Capsule) 100 mg PO DAILY PRN PRN Reason: Constipation Glucose (Glucose Gel 15 Gm Gel..Gram.) 15 gm PO Q15M PRN; Protocol PRN Reason: per Hypoglycemia Standing Ord. Piperacillin Sod/Tazobactam (Sod 3.375 gm/ Sodium Chloride) 50 mls @ 100 mls/hr IV Q8H [facility] Last Infusion: 05/28/21 04:26 Dose: Infused Documented by: Insulin Glargine (Insulin Glargine,Hum.Rec.Anlog 100 Unit/Ml 10 Ml Vial) 8 unit SUBCUT BEDTIME [facility] Last Admin: 05/27/21 20:51 Dose: 8 unit Documented by: Insulin Human Lispro (Insulin Lispro 100 Unit/Ml 3 Ml Vial) 0 unit SUBCUT QIDACHS [facility]; Protocol Last Admin: 05/28/21 07:40 Dose: Not Given Documented by: Melatonin (Melatonin 3 Mg Tablet) 6 mg PO BEDTIME [facility] Last Admin: 05/27/21 20:50 Dose: 6 mg Documented by: Omeprazole (Omeprazole 20 Mg Capsule.) 20 mg PO DAILY@0630 [facility] Last Admin: 05/28/21 05:59 Dose: 20 mg Documented by: Pharmacy Consult (Consult Rx Perform Med Rec) 1 each MISCELLANE ONCE PRN PRN Reason: Consult order Senna (Sennosides 8.6 Mg Tablet) 17.2 mg PO BEDTIME PRN PRN Reason: Constipation Sodium Chloride (0.9 % Sodium Chloride Flush 3 Ml Syringe) 3 ml IVFLUSH QSHIFT [facility] Last Admin: 05/28/21 08:29 Dose: 3 ml Documented by: Tamsulosin HCl (Tamsulosin Hcl 0.4 Mg Capsule) 0.4 mg PO DAILY [facility] Last Admin: 05/28/21 08:29 Dose: 0.4 mg Documented by: Time Spent With Patient Time: Total time spent is greater than 50% in coordination of care (as documented) at patient's floor/unit and/or counseling patient: Time with patient: less than 15 minutes Progress Note: Quality Stroke Does the patient have a stroke diagnosis?: No Procedures Date of Service Date of Service: 05/28/21
[2021-05-28 11:05] LABS: Glucose, Whole Blood 67 mg/dL (60-115)
[2021-05-28] MEDS: Glucose Gel 15 GM GEL..GRAM. PO (11:52)
[2021-05-28 11:53] LABS: Glucose, Whole Blood 69 mg/dL (60-115)
[2021-05-28] MEDS: Dextrose 5 % and 0.45 % NaCl 1,000 ML 80 ML IVCONT (12:04)
[2021-05-28 12:17] LABS: Glucose, Whole Blood 96 mg/dL (60-115)
--- NOTE | 2021-05-28 12:35 | MHC.SLORD ---
Speech Language Pathology Order Status: Diet order in [facility] reads NPO this morning. [employer] contacted , who reports patient is NPO for cysto + stent placement. No PO trials given this date d/t NPO status.
--- NOTE | 2021-05-28 13:18 | MHC.CM.PN ---
per rounds pt will be having stents removed and then dcd back to [facility]
[2021-05-28 16:13] LABS: Glucose, Whole Blood 107 mg/dL (60-115)
--- NOTE | 2021-05-28 16:22 | HO.PM.IMPN ---
Subjective Subjective Date of Service: 05/28/21 Interval History: no fever/chills no shortness of breath no dyspnea was hypoglycemic this morning while NPO for stent exchange Review of Systems Review of Systems: Yes all other systems are reviewed and are negative Physical Exam Vital Signs: Vital Signs: Last Vital Signs Temp 98.4 F 05/28/21 15:28 Pulse 71 05/28/21 15:28 Resp 18 05/28/21 15:28 BP 117/70 05/28/21 15:28 Pulse Ox 99 05/28/21 15:28 BMI result Body Mass Index 30.1 Gen: in no acute distress HEENT: sclera anicteric, moist mucus membranes Neck: supple Lungs: clear to auscultation bilaterally Heart: regular rate and rhythm, no murmurs Abd: soft, non-tender, non-distended : Colon draining clear urine Ext: no edema Skin: warm/well-perfused Neuro: alert and oriented x3, no focal findings Psych: appropriate affect Objective Data Active Medications Acetaminophen (Acetaminophen 325 Mg Tablet) 650 mg PO Q6H PRN PRN Reason: Pain, Mild (Pain Scale 1-3) Acetaminophen (Acetaminophen 325 Mg Tablet) 975 mg PO TID [facility] Last Admin: 05/28/21 15:49 Dose: 975 mg Documented by: IRWIN Amiodarone HCl (Amiodarone Hcl 200 Mg Tablet) 200 mg PO DAILY [facility] Last Admin: 05/28/21 08:29 Dose: 200 mg Documented by: IRWIN Bethanechol Chloride (Bethanechol Chloride 25 Mg Tablet) 25 mg PO BID [facility] Last Admin: 05/28/21 08:29 Dose: 25 mg Documented by: IRWIN Dextrose (Dextrose 50 % 25 Gm/50 Ml Vial) 25 gm IVPUSH Q15M PRN; Protocol PRN Reason: per Hypoglycemia Standing Ord. Last Admin: 05/28/21 06:59 Dose: 25 gm Documented by: DAVID Docusate Sodium (Docusate Sodium 100 Mg Capsule) 100 mg PO DAILY PRN PRN Reason: Constipation Glucose (Glucose Gel 15 Gm Gel..Gram.) 15 gm PO Q15M PRN; Protocol PRN Reason: per Hypoglycemia Standing Ord. Last Admin: 05/28/21 11:52 Dose: 15 gm Documented by: IRWIN Piperacillin Sod/Tazobactam (Sod 3.375 gm/ Sodium Chloride) 50 mls @ 100 mls/hr IV Q8H [facility] Last Infusion: 05/28/21 12:58 Dose: 0 mls/hr Documented by: IRWIN Dextrose/Sodium Chloride (D51/2ns) 1,000 mls @ 80 mls/hr IVCONT .[id number] [facility] Stop: 05/29/21 00:29 Last Admin: 05/28/21 12:04 Dose: 80 mls/hr Documented by: IRWIN Insulin Glargine (Insulin Glargine,Hum.Rec.Anlog 100 Unit/Ml 10 Ml Vial) 8 unit SUBCUT BEDTIME [facility] Last Admin: 05/27/21 20:51 Dose: 8 unit Documented by: DAVID Insulin Human Lispro (Insulin Lispro 100 Unit/Ml 3 Ml Vial) 0 unit SUBCUT QIDACHS [facility]; Protocol Last Admin: 05/28/21 16:13 Dose: Not Given Documented by: IRWIN Non-Admin Reason: No Insulin Coverage Melatonin (Melatonin 3 Mg Tablet) 6 mg PO BEDTIME [facility] Last Admin: 05/27/21 20:50 Dose: 6 mg Documented by: DAVID Omeprazole (Omeprazole 20 Mg Capsule.) 20 mg PO DAILY@0630 [facility] Last Admin: 05/28/21 05:59 Dose: 20 mg Documented by: DAVID Pharmacy Consult (Consult Rx Perform Med Rec) 1 each MISCELLANE ONCE PRN PRN Reason: Consult order Senna (Sennosides 8.6 Mg Tablet) 17.2 mg PO BEDTIME PRN PRN Reason: Constipation Sodium Chloride (0.9 % Sodium Chloride Flush 3 Ml Syringe) 3 ml IVFLUSH QSHIFT [facility] Last Admin: 05/28/21 15:50 Dose: Not Given Documented by: IRWIN Non-Admin Reason: IV Running Tamsulosin HCl (Tamsulosin Hcl 0.4 Mg Capsule) 0.4 mg PO DAILY [facility] Last Admin: 05/28/21 08:29 Dose: 0.4 mg Documented by: IRWIN Labs CBC & Chem 7: 05/28/21 05:59 05/28/21 05:59 Labs: Laboratory Results - last 24 hr 05/27/21 05/27/21 05/28/21 16:35 20:44 05:59 MCV 90.9 MCH 26.6 L MCHC 29.3 L RDW 16.5 H Plt Count 265 MPV 8.8 L Immature Gran % (Auto) 1.1 H Neut % (Auto) 62.5 Lymph % (Auto) 29.3 [place] % (Auto) 6.4 Eos % (Auto) 0.6 Baso % (Auto) 0.1 Lymph # (Auto) 3.7 [place] # (Auto) 0.8 Eos # (Auto) 0.1 Baso # (Auto) 0.0 Abs Immat Gran (auto) 0.14 H Absolute Neuts (auto) 7.8 Absolute Nucleated RBC 0.000 Nucleated RBC % (auto) 0.0 Anion Gap Estim Creat Clear Calc Estimated GFR POC Glucose 181 H 147 H Random Glucose Calcium 05/28/21 05/28/21 05/28/21 05:59 07:15 10:56 MCV MCH MCHC RDW Plt Count MPV Immature Gran % (Auto) Neut % (Auto) Lymph % (Auto) [place] % (Auto) Eos % (Auto) Baso % (Auto) Lymph # (Auto) [place] # (Auto) Eos # (Auto) Baso # (Auto) Abs Immat Gran (auto) Absolute Neuts (auto) Absolute Nucleated RBC Nucleated RBC % (auto) Anion Gap 10 L Estim Creat Clear Calc 64.6 Estimated GFR > 60 POC Glucose 164 H 67 Random Glucose 47 L* Calcium 7.7 L 05/28/21 05/28/21 05/28/21 11:49 12:14 16:05 MCV MCH MCHC RDW Plt Count MPV Immature Gran % (Auto) Neut % (Auto) Lymph % (Auto) [place] % (Auto) Eos % (Auto) Baso % (Auto) Lymph # (Auto) [place] # (Auto) Eos # (Auto) Baso # (Auto) Abs Immat Gran (auto) Absolute Neuts (auto) Absolute Nucleated RBC Nucleated RBC % (auto) Anion Gap Estim Creat Clear Calc Estimated GFR POC Glucose 69 96 107 Random Glucose Calcium Assessment and Plan (1) Urinary retention with incomplete bladder emptying: Status: Acute (2) PAF (paroxysmal atrial fibrillation): Status: Acute (3) Acute on chronic diastolic (congestive) heart failure: Status: Acute (4) Afib: Status: Acute (5) Diabetes: Status: Acute (6) Acute UTI: Status: Acute (7) Sepsis: Status: Acute (8) Anemia: Status: Acute Assessment and Plan: hospital d#5 80yo F with HTN, HLD, DM2, HFpEF, chronic AF, CLL, anemia, GERD recent admission to [facility] 04/10/21 for acute blood loss anemia secondary to GI bleed- discontinued apixaban; hematuria, obstructive uropathy, nephrolithiasis -> discharged to [facility] for STR 05/02/21 admitted after unwitnessed fall, found to be septic with UTI + PNA # unwitnessed fall/generalized weakness - likely due to poor by mouth intake, recent bout of UTI, CT head + C-spine no acute abnormality - rehab upon discharge per PT # toxic/metabolic encephalopathy with visual hallucinations - resolved- likely due to UTI/PNA/hyperNa - per HCP pt previously on mirtazapine that was discontinued due to side effects; consider low-dose risperidone if develops recurrent hallucinations though have not recurred since admission # multifocal PNA, suspected aspiration - s/p recent ABX- levofloxacin for UTI - pip/scooter d#4, aspiration precautions given L vocal cord paralysis - [employer] following: clear liquids, chopped solids # UTI, recurrent - likely due to bilateral ureter stone/bilateral stent placement at [facility] 04/20/21 with removal of stones, status post Colon catheter - urine culture grew mixed opal; urine clearing up; WBC slowly trending down, continue IV pip/scooter d#4 - Urology consulted, plan removal of stent today?for which pt is NPO # hyperNa - encourage free water intake PO postop # chronic AF- continue amiodarone - apixaban d/c'ed in March as above - continue amiodarone # acute/chronic HFpEF - got 1 dose furosemide in ED but now appears euvolemic- hold furosemide for now - continue ? # acute/chronic anemia - likely anemia of chronic disease - s/p 2u pRBCs transfused at [facility] - FOBT positive - 1u pRBCs transfused here - no active GI bleed noted; GI consulted- pt refused GI workup # insomnia - melatonin # DM2 - basal/bolus insulin- got D50 for hypoglycemia- will give D5 while NPO # stage 2 coccygeal ulcer - protein supplements, position changes # VTE ppx - SCDs, no apixaban due to recent bleed/anemia Quality Stroke Does the patient have a stroke diagnosis?: No VTE Prior VTE?: No VTE Risk Level:: Medical - moderate - high VTE Device Contraindication: Treatment Not Indicated VTE Drug Contraindication: N/A - Med Ordered
--- NOTE | 2021-05-28 16:57 | PM.UROPN ---
Subjective Subjective Date of Service: 05/28/21 Interval history: Seen along with nurse Removing indwelling bilateral stents She tells me prior to March she did not have a Colon catheter in place Has not been able to walk See procedure note for cystoscopy removal of ureteric stent x2 She was left without a catheter and nursing will see if she can use a bedpan Physical Exam Vital Signs: Vital Signs: Last Vital Signs Temp 98.4 F 05/28/21 15:28 Pulse 71 05/28/21 15:28 Resp 18 05/28/21 15:28 BP 117/70 05/28/21 15:28 Pulse Ox 99 05/28/21 15:28 BMI result Body Mass Index 30.1 Const: General: cooperative, healthy appearing, comfortable and no acute distress Orientation/consciousness: patient oriented x3 HENMT: Face and sinus: Yes normal facial exam Mouth: moist mucous membranes Neck: Neck: Yes normal visual inspection, Yes full ROM and Yes trachea midline Chest: Chest palpation & inspection: normal inspection of the chest Resp: Effort & Inspection: normal respiratory effort, able to speak in complete sentences and no respiratory distress GI: Inspection: Yes normal to inspection Back/Spine/Pelvis: Cervical Spine: normal cervical lordosis Thoracic/Lumbar Spine: thoracic and lumbar spine normal to inspection Skin: General skin exam: no rashes or lesions noted Neuro: General: patient oriented x3, tone normal and moves all extremities Extrem: General: Yes normal to inspection and Yes capillary refill normal Urology Results Labs CBC & Chem 7: 05/28/21 05:59 05/28/21 05:59 Labs: Laboratory Results - last 24 hr 05/27/21 05/28/21 05/28/21 20:44 05:59 05:59 WBC 12.5 H RBC 3.19 L Hgb 8.5 L Hct 29.0 L MCV 90.9 MCH 26.6 L MCHC 29.3 L RDW 16.5 H Plt Count 265 MPV 8.8 L Immature Gran % (Auto) 1.1 H Neut % (Auto) 62.5 Lymph % (Auto) 29.3 [place] % (Auto) 6.4 Eos % (Auto) 0.6 Baso % (Auto) 0.1 Lymph # (Auto) 3.7 [place] # (Auto) 0.8 Eos # (Auto) 0.1 Baso # (Auto) 0.0 Abs Immat Gran (auto) 0.14 H Absolute Neuts (auto) 7.8 Absolute Nucleated RBC 0.000 Nucleated RBC % (auto) 0.0 Sodium 147 H Potassium 3.5 Chloride 102 Carbon Dioxide 39 H Anion Gap 10 L BUN 17 H Creatinine 0.66 Estim Creat Clear Calc 64.6 Estimated GFR > 60 POC Glucose 147 H Random Glucose 47 L* Calcium 7.7 L 05/28/21 05/28/21 05/28/21 07:15 10:56 11:49 WBC RBC Hgb Hct MCV MCH MCHC RDW Plt Count MPV Immature Gran % (Auto) Neut % (Auto) Lymph % (Auto) [place] % (Auto) Eos % (Auto) Baso % (Auto) Lymph # (Auto) [place] # (Auto) Eos # (Auto) Baso # (Auto) Abs Immat Gran (auto) Absolute Neuts (auto) Absolute Nucleated RBC Nucleated RBC % (auto) Sodium Potassium Chloride Carbon Dioxide Anion Gap BUN Creatinine Estim Creat Clear Calc Estimated GFR POC Glucose 164 H 67 69 Random Glucose Calcium 05/28/21 05/28/21 12:14 16:05 WBC RBC Hgb Hct MCV MCH MCHC RDW Plt Count MPV Immature Gran % (Auto) Neut % (Auto) Lymph % (Auto) [place] % (Auto) Eos % (Auto) Baso % (Auto) Lymph # (Auto) [place] # (Auto) Eos # (Auto) Baso # (Auto) Abs Immat Gran (auto) Absolute Neuts (auto) Absolute Nucleated RBC Nucleated RBC % (auto) Sodium Potassium Chloride Carbon Dioxide Anion Gap BUN Creatinine Estim Creat Clear Calc Estimated GFR POC Glucose 96 107 Random Glucose Calcium Urology Procedures Other Procedure Other Procedure: Cystoscopy with bilateral stent removal Bladder was irrigated with 120 cc 3 via Colon catheter Flexible cystoscopy was inserted Left stent grasped with grasper and stent removed Flexible cystoscope placed back in bladder Right stent grasped and removed with grasper CPT 85593 x 2 Progress Note: A&P Assessment and plan (1) Infection associated with indwelling ureteral stent: Status: Acute Assessment and Plan: Cystoscopy and stent removal performed at bedside She is currently on antibiotics Colon catheter not placed Fall Risk Details Current Medications: Current Medications Acetaminophen (Acetaminophen 325 Mg Tablet) 650 mg PO Q6H PRN PRN Reason: Pain, Mild (Pain Scale 1-3) Acetaminophen (Acetaminophen 325 Mg Tablet) 975 mg PO TID [facility] Last Admin: 05/28/21 15:49 Dose: 975 mg Documented by: Amiodarone HCl (Amiodarone Hcl 200 Mg Tablet) 200 mg PO DAILY [facility] Last Admin: 05/28/21 08:29 Dose: 200 mg Documented by: Bethanechol Chloride (Bethanechol Chloride 25 Mg Tablet) 25 mg PO BID [facility] Last Admin: 05/28/21 08:29 Dose: 25 mg Documented by: Dextrose (Dextrose 50 % 25 Gm/50 Ml Vial) 25 gm IVPUSH Q15M PRN; Protocol PRN Reason: per Hypoglycemia Standing Ord. Last Admin: 05/28/21 06:59 Dose: 25 gm Documented by: Docusate Sodium (Docusate Sodium 100 Mg Capsule) 100 mg PO DAILY PRN PRN Reason: Constipation Glucose (Glucose Gel 15 Gm Gel..Gram.) 15 gm PO Q15M PRN; Protocol PRN Reason: per Hypoglycemia Standing Ord. Last Admin: 05/28/21 11:52 Dose: 15 gm Documented by: Piperacillin Sod/Tazobactam (Sod 3.375 gm/ Sodium Chloride) 50 mls @ 100 mls/hr IV Q8H [facility] Last Infusion: 05/28/21 12:58 Dose: Infused Documented by: Dextrose/Sodium Chloride (D51/2ns) 1,000 mls @ 80 mls/hr IVCONT .[id number] [facility] Stop: 05/29/21 00:29 Last Admin: 05/28/21 12:04 Dose: 80 mls/hr Documented by: Insulin Glargine (Insulin Glargine,Hum.Rec.Anlog 100 Unit/Ml 10 Ml Vial) 8 unit SUBCUT BEDTIME [facility] Last Admin: 05/27/21 20:51 Dose: 8 unit Documented by: Insulin Human Lispro (Insulin Lispro 100 Unit/Ml 3 Ml Vial) 0 unit SUBCUT QIDACHS [facility]; Protocol Last Admin: 05/28/21 16:13 Dose: Not Given Documented by: Melatonin (Melatonin 3 Mg Tablet) 6 mg PO BEDTIME [facility] Last Admin: 05/27/21 20:50 Dose: 6 mg Documented by: Omeprazole (Omeprazole 20 Mg Odette.) 20 mg PO DAILY@0630 [facility] Last Admin: 05/28/21 05:59 Dose: 20 mg Documented by: Pharmacy Consult (Consult Rx Perform Med Rec) 1 each MISCELLANE ONCE PRN PRN Reason: Consult order Senna (Sennosides 8.6 Mg Tablet) 17.2 mg PO BEDTIME PRN PRN Reason: Constipation Sodium Chloride (0.9 % Sodium Chloride Flush 3 Ml Syringe) 3 ml IVFLUSH QSHIFT [facility] Last Admin: 05/28/21 15:50 Dose: Not Given Documented by: Tamsulosin HCl (Tamsulosin Hcl 0.4 Mg Capsule) 0.4 mg PO DAILY [facility] Last Admin: 05/28/21 08:29 Dose: 0.4 mg Documented by: Time Spent With Patient Time: Total time spent is greater than 50% in coordination of care (as documented) at patient's floor/unit and/or counseling patient: Time with patient: less than 15 minutes No Severe Sepsis: No Severe Sepsis Progress Note: Quality Stroke Does the patient have a stroke diagnosis?: No Bladder/Catheter Procedure Additional procedure code (CPT) needed (36027)
[2021-05-28 20:35] LABS: Glucose, Whole Blood 209 mg/dL (60-115)
[2021-05-28] MEDS: Melatonin 3 MG TABLET 6 MG PO (22:59)
[2021-05-28] MEDS: Insulin Glargine,Hum.rec.anlog 100 UNIT/ML 10 ML VIAL 8 UNIT SUBCUT (22:59)
[2021-05-28] MEDS: Insulin Lispro 100 UNIT/ML 3 ML VIAL SUBCUT (23:00)
[2021-05-29] VITALS (7 sets, daily range): BP systolic 102–125; BP diastolic 49–62; PULSE 64–82; RESP 15–20; TEMP 36.1–37; O2SAT 92–100
[2021-05-29] MEDS: Piperacillin Sodium/Tazobactam 3.375 GM in 0.9 % Sodium Chloride 50 ML IV ×3 (06:09→19:58)
[2021-05-29 07:20] LABS: Glucose, Whole Blood 59 mg/dL (60-115)
[2021-05-29 07:41] LABS: Glucose, Whole Blood 82 mg/dL (60-115)
[2021-05-29] MEDS: Tamsulosin HCL 0.4 MG CAPSULE PO (08:56)
[2021-05-29] MEDS: Bethanechol Chloride 25 MG TABLET PO ×2 (08:56→19:57)
[2021-05-29] MEDS: Acetaminophen 325 MG TABLET 975 MG PO ×2 (08:56→19:57)
[2021-05-29] MEDS: Amiodarone HCL 200 MG TABLET PO (08:56)
[2021-05-29] MEDS: 0.9 % Sodium Chloride Flush 3 ML SYRINGE IVFLUSH ×3 (08:57→19:58)
[2021-05-29 09:13] LABS: Glucose, Whole Blood 159 mg/dL (60-115)
[2021-05-29 10:26] LABS: Hematocrit 29.5 % (37.0-47.0); Hemoglobin 8.3 g/dl (12.0-16.0); Mean Corpuscular HGB Conc 28.1 g/dl (31.0-35.0); Mean Corpuscular Volume 92.5 fL (80.0-98.0); Platelet Count 246 X10*3/uL (160-400); Red Blood Count 3.19 X10*6/uL (4.20-5.50); Red Cell Distribution Width 16.4 % (11.0-16.0); White Blood Count 11.1 X10*3/uL (4.8-10.8)
[2021-05-29 10:34] LABS: Estimated Average Glucose 126 mg/dL
[2021-05-29 10:47] LABS: Anion Gap 9 (12-20); Blood Urea Nitrogen 14 mg/dL (9-16); Calcium 7.5 mg/dL (8.4-10.2); Carbon Dioxide 39 mmol/L (22-29); Chloride 100 mmol/L (96-108); Creatinine Clr Calc Pharmacy 60.9; Estimated Glomerular Filt Rate > 60; Glucose Random 179 mg/dL (60-115); Potassium 3.5 mmol/L (3.3-5.1); Sodium 144 mmol/L (135-145)
[2021-05-29 11:18] LABS: Glucose, Whole Blood 140 mg/dL (60-115)
--- NOTE | 2021-05-29 11:58 | HO.PM.IMPN ---
Subjective Subjective Date of Service: 05/29/21 Interval History: hypoglycemic again this am breathing improved; now on 3L O2 via NC [was on 4.5L overnight] no cough no fever stents removed yesterday; Colon also removed and pt voiding on own Review of Systems Review of Systems: Yes all other systems are reviewed and are negative Physical Exam Vital Signs: Vital Signs: Last Vital Signs Temp 98.4 F 05/29/21 11:46 Pulse 70 05/29/21 11:46 Resp 20 05/29/21 11:46 BP 106/49 L 05/29/21 11:46 Pulse Ox 100 05/29/21 11:46 BMI result Body Mass Index 30.1 Gen: in no acute distress HEENT: sclera anicteric, moist mucus membranes Neck: supple Lungs: clear to auscultation bilaterally Heart: regular rate and rhythm, no murmurs Abd: soft, non-tender, non-distended Ext: no edema Skin: warm/well-perfused Neuro: alert and oriented x3, no focal findings Psych: appropriate affect Objective Data Active Medications Acetaminophen (Acetaminophen 325 Mg Tablet) 650 mg PO Q6H PRN PRN Reason: Pain, Mild (Pain Scale 1-3) Acetaminophen (Acetaminophen 325 Mg Tablet) 975 mg PO TID [facility] Last Admin: 05/29/21 08:56 Dose: 975 mg Documented by: CHRISTOPHER Amiodarone HCl (Amiodarone Hcl 200 Mg Tablet) 200 mg PO DAILY [facility] Last Admin: 05/29/21 08:56 Dose: 200 mg Documented by: CHRISTOPHER Bethanechol Chloride (Bethanechol Chloride 25 Mg Tablet) 25 mg PO BID [facility] Last Admin: 05/29/21 08:56 Dose: 25 mg Documented by: CHRISTOPHER Dextrose (Dextrose 50 % 25 Gm/50 Ml Vial) 25 gm IVPUSH Q15M PRN; Protocol PRN Reason: per Hypoglycemia Standing Ord. Last Admin: 05/28/21 06:59 Dose: 25 gm Documented by: DAVID Docusate Sodium (Docusate Sodium 100 Mg Capsule) 100 mg PO DAILY PRN PRN Reason: Constipation Glucose (Glucose Gel 15 Gm Gel..Gram.) 15 gm PO Q15M PRN; Protocol PRN Reason: per Hypoglycemia Standing Ord. Last Admin: 05/28/21 11:52 Dose: 15 gm Documented by: IRWIN Piperacillin Sod/Tazobactam (Sod 3.375 gm/ Sodium Chloride) 50 mls @ 100 mls/hr IV Q8H [facility] Last Infusion: 05/29/21 07:06 Dose: 0 mls/hr Documented by: COLE Insulin Human Lispro (Insulin Lispro 100 Unit/Ml 3 Ml Vial) 0 unit SUBCUT QIDACHS [facility]; Protocol Last Admin: 05/29/21 11:45 Dose: Not Given Documented by: CHRISTOPHER Non-Admin Reason: No Insulin Coverage Melatonin (Melatonin 3 Mg Tablet) 6 mg PO BEDTIME [facility] Last Admin: 05/28/21 22:59 Dose: 6 mg Documented by: COLE Omeprazole (Omeprazole 20 Mg Capsule.Dr) 20 mg PO DAILY@0630 [facility] Last Admin: 05/29/21 06:09 Dose: Not Given Documented by: COLE Non-Admin Reason: Patient Refused Pharmacy Consult (Consult Rx Perform Med Rec) 1 each MISCELLANE ONCE PRN PRN Reason: Consult order Senna (Sennosides 8.6 Mg Tablet) 17.2 mg PO BEDTIME PRN PRN Reason: Constipation Sodium Chloride (0.9 % Sodium Chloride Flush 3 Ml Syringe) 3 ml IVFLUSH QSHIFT [facility] Last Admin: 05/29/21 08:57 Dose: 3 ml Documented by: CHRISTOPHER Tamsulosin HCl (Tamsulosin Hcl 0.4 Mg Capsule) 0.4 mg PO DAILY [facility] Last Admin: 05/29/21 08:56 Dose: 0.4 mg Documented by: CHRISTOPHER Labs CBC & Chem 7: 05/29/21 10:06 05/29/21 10:06 Labs: Laboratory Results - last 24 hr 05/28/21 05/28/21 05/28/21 12:14 16:05 20:32 MCV MCH MCHC RDW Plt Count MPV Absolute Nucleated RBC Nucleated RBC % (auto) Anion Gap Estim Creat Clear Calc Estimated GFR POC Glucose 96 107 209 H Random Glucose Estimat Average Glucose Hemoglobin A1c % Calcium 05/29/21 05/29/21 05/29/21 07:16 07:37 09:00 MCV MCH MCHC RDW Plt Count MPV Absolute Nucleated RBC Nucleated RBC % (auto) Anion Gap Estim Creat Clear Calc Estimated GFR POC Glucose 59 L* 82 159 H Random Glucose Estimat Average Glucose Hemoglobin A1c % Calcium 05/29/21 05/29/21 05/29/21 10:06 10:06 10:06 MCV 92.5 MCH 26.0 L MCHC 28.1 L RDW 16.4 H Plt Count 246 MPV 9.0 L Absolute Nucleated RBC 0.000 Nucleated RBC % (auto) 0.0 Anion Gap 9 L Estim Creat Clear Calc 60.9 Estimated GFR > 60 POC Glucose Random Glucose 179 H Estimat Average Glucose 126 Hemoglobin A1c % 6.0 Calcium 7.5 L 05/29/21 11:14 MCV MCH MCHC RDW Plt Count MPV Absolute Nucleated RBC Nucleated RBC % (auto) Anion Gap Estim Creat Clear Calc Estimated GFR POC Glucose 140 H Random Glucose Estimat Average Glucose Hemoglobin A1c % Calcium Assessment and Plan (1) Urinary retention with incomplete bladder emptying: Status: Acute (2) PAF (paroxysmal atrial fibrillation): Status: Acute (3) Acute on chronic diastolic (congestive) heart failure: Status: Acute (4) Afib: Status: Acute (5) Diabetes: Status: Acute (6) Acute UTI: Status: Acute (7) Sepsis: Status: Acute (8) Anemia: Status: Acute Assessment and Plan: hospital d#6 80yo F with HTN, HLD, DM2, HFpEF, chronic AF, CLL, anemia, GERD recent admission to [facility] 04/10/21 for acute blood loss anemia secondary to GI bleed- discontinued apixaban; hematuria, obstructive uropathy, nephrolithiasis -> discharged to [facility] for STR 05/02/21 admitted after unwitnessed fall, found to be septic with UTI + PNA # unwitnessed fall/generalized weakness - likely due to poor by mouth intake, recent bout of UTI, CT head + C-spine no acute abnormality - rehab upon discharge per PT # toxic/metabolic encephalopathy with visual hallucinations - resolved- likely due to UTI/PNA/hyperNa - per HCP pt previously on mirtazapine that was discontinued due to side effects; consider low-dose risperidone if develops recurrent hallucinations though have not recurred since admission # multifocal PNA, suspected aspiration - s/p recent ABX- levofloxacin for UTI - pip/scooter d#5, aspiration precautions given L vocal cord paralysis - [employer]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 following: clear liquids, chopped solids # UTI, recurrent - likely due to bilateral ureter stone/bilateral stent placement at [facility] 04/20/21 with removal of stones, status post Colon catheter - urine culture grew mixed opal; urine clearing up; WBC slowly trending down, continue IV pip/scooter d#5 - Urology consulted, stents removed yesterday and Colon out and voiding on own # hyperNa - resolved # chronic AF- continue amiodarone - apixaban d/c'ed in March as above - continue amiodarone # acute/chronic HFpEF - got 1 dose furosemide in ED but now appears euvolemic- hold furosemide for now # acute/chronic anemia - likely anemia of chronic disease - s/p 2u pRBCs transfused at [facility] - FOBT positive - 1u pRBCs transfused here - no active GI bleed noted; GI consulted- pt refused GI workup # insomnia - melatonin # DM2 - basal/bolus insulin- got D50 for hypoglycemia- will give D5 while NPO # stage 2 coccygeal ulcer - protein supplements, position changes # VTE ppx - SCDs, no apixaban due to recent bleed/anemia # dispo - anticipate return to for STR in next 1-2d Quality Stroke Does the patient have a stroke diagnosis?: No VTE Prior VTE?: No VTE Risk Level:: Medical - moderate - high VTE Device Contraindication: Treatment Not Indicated VTE Drug Contraindication: N/A - Med Ordered
[2021-05-29 16:17] LABS: Glucose, Whole Blood 100 mg/dL (60-115)
[2021-05-29] MEDS: Melatonin 3 MG TABLET 6 MG PO (19:57)
[2021-05-29 20:12] LABS: Glucose, Whole Blood 106 mg/dL (60-115)
[2021-05-30] VITALS (7 sets, daily range): BP systolic 118–130; BP diastolic 62–64; PULSE 63–79; RESP 18–20; TEMP 36.4–37.3; O2SAT 94–99
[2021-05-30] MEDS: Piperacillin Sodium/Tazobactam 3.375 GM in 0.9 % Sodium Chloride 50 ML IV (04:56)
[2021-05-30] MEDS: Omeprazole 20 MG CAPSULE.DR PO (04:57)
[2021-05-30 06:46] LABS: Hematocrit 29.1 % (37.0-47.0); Hemoglobin 8.5 g/dl (12.0-16.0); Mean Corpuscular HGB Conc 29.2 g/dl (31.0-35.0); Mean Corpuscular Hemoglobin 26.8 pg (27.0-33.0); Mean Corpuscular Volume 91.8 fL (80.0-98.0); Mean Platelet Volume 8.9 fL (9.4-12.3); Platelet Count 251 X10*3/uL (160-400); Red Blood Count 3.17 X10*6/uL (4.20-5.50); Red Cell Distribution Width 16.6 % (11.0-16.0); White Blood Count 12.3 X10*3/uL (4.8-10.8)
[2021-05-30 07:09] LABS: Anion Gap 12 (12-20); Blood Urea Nitrogen 14 mg/dL (9-16); Calcium 7.7 mg/dL (8.4-10.2); Carbon Dioxide 36 mmol/L (22-29); Chloride 102 mmol/L (96-108); Creatinine Clr Calc Pharmacy 67.7; Estimated Glomerular Filt Rate > 60; Glucose Random 84 mg/dL (60-115); Potassium 3.5 mmol/L (3.3-5.1); Sodium 146 mmol/L (135-145)
[2021-05-30 07:23] LABS: Glucose, Whole Blood 78 mg/dL (60-115)
[2021-05-30 07:49] LABS: Procalcitonin 0.05 ng/mL
[2021-05-30] MEDS: Acetaminophen 325 MG TABLET 975 MG PO ×3 (09:40→21:56)
[2021-05-30] MEDS: Bethanechol Chloride 25 MG TABLET PO ×2 (09:40→21:55)
[2021-05-30] MEDS: Tamsulosin HCL 0.4 MG CAPSULE PO (09:40)
[2021-05-30] MEDS: Amiodarone HCL 200 MG TABLET PO ×2 (09:40)
[2021-05-30] MEDS: 0.9 % Sodium Chloride Flush 3 ML SYRINGE IVFLUSH ×2 (09:41→13:21)
[2021-05-30 11:43] LABS: Glucose, Whole Blood 130 mg/dL (60-115)
[2021-05-30 11:50] LABS: COVID-19 Test Negative (Negative)
--- NOTE | 2021-05-30 12:43 | MHC.CM.PN ---
CM met with Patient at bedside to discuss dc planning. Per [facility] Liaison[facility]Libby, [facility] authorization was initiated on 05/28/21, but [facility] has not yet given auth and therefor a return to [facility] will likely happen tomorrow, 05/31/21.Per Patient's request, RADHA has informed Sister Annalise at [phone], of this situation.CM will follow,
--- NOTE | 2021-05-30 13:52 | HO.PM.IMPN ---
Subjective Subjective Date of Service: 05/30/21 Interval History: Urinating freely and no hematuria. No fever. Still somewhat short of breath and requiring 2L O2. Review of Systems Review of Systems: Yes all other systems are reviewed and are negative Physical Exam Vital Signs: Vital Signs: Last Vital Signs Temp 98.0 F 05/30/21 07:51 Pulse 79 05/30/21 09:40 Resp 20 05/30/21 07:51 BP 128/63 05/30/21 09:40 Pulse Ox 94 05/30/21 07:51 BMI result Body Mass Index 30.1 Gen: in no acute distress on 2L O2 via NC HEENT: sclera anicteric, moist mucus membranes Neck: supple Lungs: wet inspiratory crackles at L base Heart: regular rate and rhythm, no murmurs Abd: soft, non-tender, non-distended Ext: no edema Skin: warm/well-perfused Neuro: alert and oriented x3, no focal findings Psych: appropriate affect Objective Data Active Medications Acetaminophen (Acetaminophen 325 Mg Tablet) 650 mg PO Q6H PRN PRN Reason: Pain, Mild (Pain Scale 1-3) Acetaminophen (Acetaminophen 325 Mg Tablet) 975 mg PO TID [facility] Last Admin: 05/30/21 09:40 Dose: 975 mg Documented by: ANKIT Amiodarone HCl (Amiodarone Hcl 200 Mg Tablet) 200 mg PO DAILY [facility] Last Admin: 05/30/21 09:40 Dose: 200 mg Documented by: ANKIT Bethanechol Chloride (Bethanechol Chloride 25 Mg Tablet) 25 mg PO BID [facility] Last Admin: 05/30/21 09:40 Dose: 25 mg Documented by: ANKIT Dextrose (Dextrose 50 % 25 Gm/50 Ml Vial) 25 gm IVPUSH Q15M PRN; Protocol PRN Reason: per Hypoglycemia Standing Ord. Last Admin: 05/28/21 06:59 Dose: 25 gm Documented by: DAVID Docusate Sodium (Docusate Sodium 100 Mg Capsule) 100 mg PO DAILY PRN PRN Reason: Constipation Glucose (Glucose Gel 15 Gm Gel..Gram.) 15 gm PO Q15M PRN; Protocol PRN Reason: per Hypoglycemia Standing Ord. Last Admin: 05/28/21 11:52 Dose: 15 gm Documented by: IRWIN Piperacillin Sod/Tazobactam (Sod 3.375 gm/ Sodium Chloride) 50 mls @ 100 mls/hr IV Q8H [facility] Last Admin: 05/30/21 13:19 Dose: 100 mls/hr Documented by: ANKIT Insulin Human Lispro (Insulin Lispro 100 Unit/Ml 3 Ml Vial) 0 unit SUBCUT QIDACHS [facility]; Protocol Last Admin: 05/30/21 13:04 Dose: Not Given Documented by: ANKIT Non-Admin Reason: No Insulin Coverage Melatonin (Melatonin 3 Mg Tablet) 6 mg PO BEDTIME [facility] Last Admin: 05/29/21 19:57 Dose: 6 mg Documented by: MARGARET Omeprazole (Omeprazole 20 Mg Capsule.) 20 mg PO DAILY@0630 [facility] Last Admin: 05/30/21 04:57 Dose: 20 mg Documented by: MARGARET Pharmacy Consult (Consult Rx Perform Med Rec) 1 each MISCELLANE ONCE PRN PRN Reason: Consult order Senna (Sennosides 8.6 Mg Tablet) 17.2 mg PO BEDTIME PRN PRN Reason: Constipation Sodium Chloride (0.9 % Sodium Chloride Flush 3 Ml Syringe) 3 ml IVFLUSH QSHIFT [facility] Last Admin: 05/30/21 13:21 Dose: 3 ml Documented by: ANKIT Tamsulosin HCl (Tamsulosin Hcl 0.4 Mg Capsule) 0.4 mg PO DAILY [facility] Last Admin: 05/30/21 09:40 Dose: 0.4 mg Documented by: NAKIT Labs CBC & Chem 7: 05/30/21 06:35 05/30/21 06:35 Labs: Laboratory Results - last 24 hr 05/29/21 05/29/21 05/30/21 16:10 20:03 06:35 MCV 91.8 MCH 26.8 L MCHC 29.2 L RDW 16.6 H Plt Count 251 MPV 8.9 L Absolute Nucleated RBC 0.000 Nucleated RBC % (auto) 0.0 Anion Gap Estim Creat Clear Calc Estimated GFR POC Glucose 100 106 Random Glucose Calcium Procalcitonin COVID-19 (CHARLES) COVID-19 Clin Com 05/30/21 05/30/21 05/30/21 06:35 06:35 07:19 MCV MCH MCHC RDW Plt Count MPV Absolute Nucleated RBC Nucleated RBC % (auto) Anion Gap 12 Estim Creat Clear Calc 67.7 Estimated GFR > 60 POC Glucose 78 Random Glucose 84 Calcium 7.7 L Procalcitonin 0.05 COVID-19 (CHARLES) COVID-19 Clin Com 05/30/21 05/30/21 11:22 11:37 MCV MCH MCHC RDW Plt Count MPV Absolute Nucleated RBC Nucleated RBC % (auto) Anion Gap Estim Creat Clear Calc Estimated GFR POC Glucose 130 H Random Glucose Calcium Procalcitonin COVID-19 (CHARLES) Negative COVID-19 Clin Com See Note Assessment and Plan (1) Urinary retention with incomplete bladder emptying: Status: Acute (2) PAF (paroxysmal atrial fibrillation): Status: Acute (3) Acute on chronic diastolic (congestive) heart failure: Status: Acute (4) Afib: Status: Acute (5) Diabetes: Status: Acute (6) Acute UTI: Status: Acute (7) Sepsis: Status: Acute (8) Anemia: Status: Acute Assessment and Plan: hospital d#7 80yo F with HTN, HLD, DM2, HFpEF, chronic AF, CLL, anemia, GERD recent admission to [facility] 04/10/21 for acute blood loss anemia secondary to hematuria, obstructive uropathy, nephrolithiasis -> d/c'ed apixaban discharged to [facility] for STR 05/02/21 admitted after unwitnessed fall, found to be septic with UTI + PNA # unwitnessed fall/generalized weakness - likely due to poor by mouth intake, recent bout of UTI, CT head + C-spine no acute abnormality - rehab upon discharge per PT evaluation # toxic/metabolic encephalopathy with visual hallucinations - resolved- likely due to UTI/PNA/hyperNa + hospital delirium - per HCP pt previously on mirtazapine that was discontinued due to side effects; consider low-dose risperidone if develops recurrent hallucinations though have not recurred since admission # multifocal PNA, suspected aspiration - s/p recent ABX [levofloxacin for UTI] - pip/scooter d#7; will give 3 days of amox/clav starting tomorrow; aspiration precautions given L vocal cord paralysis - [employer]SEM[employer]OR following: clear liquids, chopped solids # UTI, recurrent - likely due to bilateral ureter stone/bilateral stent placement at [facility] 04/20/21 with removal of stones, status post Colon catheter - urine culture grew mixed opal; WBC count improved, complete IV pip/scooter d#12/30 - Urology consulted, stents removed 05/28/21 and Colon out and voiding on own; outpt Urology followup # hyperNa - encourage free water intake; recheck BMP in am # chronic AF- continue amiodarone - apixaban d/c'ed in March as above- will resume today with cautious monitoring- check H+H tomorrow and then periodically upon discharge - continue amiodarone # acute/chronic HFpEF - got 1 dose furosemide in ED but now appears euvolemic- hold furosemide for now # acute/chronic anemia - likely anemia of chronic disease - s/p 2u pRBCs transfused at [facility] - FOBT positive - 1u pRBCs transfused here - no active GI bleed noted; GI consulted- pt refused GI workup - will resume apixaban as above # insomnia - melatonin # DM2 with hypoglycemia - A1c only 6 [05/29/21] - d/c'ed glargine - correction-dose lispro # stage 2 coccygeal ulcer - protein supplements, position changes # VTE ppx - SCDs, resume apixaban as above # dispo - anticipate return to [facility] for STR tomorrow [was unable to obtain authorization for today] Quality Stroke Does the patient have a stroke diagnosis?: No VTE Prior VTE?: No VTE Risk Level:: Medical - moderate - high VTE Device Contraindication: Treatment Not Indicated VTE Drug Contraindication: N/A - Med Ordered
--- NOTE | 2021-05-30 14:05 | PM.DS ---
DS: Providers Provider Date of Service: 05/30/21 Date of admission: 05/24/21 05:34 Primary care physician: Subhash Ng MD Consults: 05/24/21 05:38 Consult to Gastroenterology Routine Consulting Provider: Isaías Jacobo Reason for consultation: guaiac positive stool 05/24/21 05:43 Consult to Cardiology Routine Consulting Provider: Boris Lopez Reason for consultation: CHF 05/25/21 18:28 Consult to Urology Routine Consulting Provider: Balwinder Villarreal Reason for consultation: pus in urine /s/p stent Has provider been notified: No 05/26/21 09:51 Consult to Urology Routine Consulting Provider: Balwinder Villarreal Reason for consultation: b/l stent Has provider been notified: No DS: Diagnosis Discharge Diagnosis (1) PAF (paroxysmal atrial fibrillation): Status: Acute (2) Acute on chronic diastolic (congestive) heart failure: Status: Acute (3) Diabetes: Status: Acute (4) Acute UTI: Status: Acute (5) Sepsis: Status: Acute (6) Anemia: Status: Acute (7) Infection associated with indwelling ureteral stent: Status: Acute (8) Aspiration pneumonia: Status: Acute (9) Acute respiratory failure with hypoxia: Status: Acute (10) Encephalopathy: Status: Acute DS: Summary Hospital Course Hospital Course: From admission history and physical by hospitalist Stanley Natarajan, 05/24/21: 80-year-old female with a past medical history of hypertension, hyperlipidemia, diabetes, CHF, AFib, anemia, chronic AFib, GERD, recent admission to the [facility] on 04/10/2021 for acute blood loss anemia? Secondary to GI bleed -discontinued Eliquis, hematuria, obstructive uropathy, UTI, renal stones - discharged on to? [facility] presented to the hospital today with a chief complaint of unwitnessed fall. ? Also patient's home care nurse from the nursing facility at bedside mentioned that patient was noted to be lately confused. Patient is lying in the bed comfortably, supplemental oxygen in place, alert and awake, pleasantly confused, oriented times 1-2. ? patient denied any chest pain palpitations, denies any shortness of breath, denies any nausea vomiting diarrhea, denies any abdominal discomfort. Patient unable to recall the event of fall from the bed.? Per nurse at bedside patient had a fall, unwitnessed, unknown as the patient was consciousness.? Review of all other systems is limited.? ER course: Per ER team patient CT head and cervical spine CT showed no acute findings; CT chest showed multifocal pneumonia concern for aspiration.? On legs noted to have peripheral edema 3+; urine looks cloudy and urinalysis consistent with UTI.? Patient was given Zosyn.? Admitted to the hospital for further management. ? All labs also noted a patient's hemoglobin of 7.5.? Stool guaiac was positive. This 80yo F with HTN, HLD, DM2, HFpEF, chronic AF, CLL, anemia, GERD was recently admitted to [facility] 04/10/21 for acute blood loss anemia secondary to GI bleed. There, apixaban was discontinued due to hematuria. She was found to have obstructive uropathy from nephrolithiasis. Ureteral stents were placed, and discharged to [facility] for rehabilitation 05/02/21. She was admitted here after an unwitnessed fall and found to be septic with UTI and pneumonia. Hospital course by problem: # unwitnessed fall/generalized weakness Likely due to poor by mouth intake, recent bout of UTI, CT head + C-spine no acute abnormality. Will return to short-term rehabilitation. # toxic/metabolic encephalopathy with visual hallucinations Resolved. Multifactorial, due to sepsis and hospital delirium. In past, on mirtazapine, but this was discontinued due to side effects. Frequent re-orientation counseled. # multifocal PNA/suspected aspiration Received 7 days of piperacillin/tazobactam 1 day of amoxicillin/clavulanate, and will get 2 more days of amoxicillin/clavaulanate. Seen by CYBER ANALYST; has history of L vocal cord paralysis. Recommended clear liquids with chopped solids [NDD3]. # UTI, recurrent Likely due to bilateral ureter stone/bilateral stent placement at [facility] 04/20/21 with removal of stones. Urine culture here grew mixed opal. Was treated with 7 days of piperacillin/tazobactam. Urology was consulted and stents and Colon were removed on 05/28/21. Afterwards, the patient voided on her own without any problems. # hyperNa Mild. Free water intake encouraged. # chronic AF Apixaban was resumed with plan for frequent monitoring of H+H as outpatient. # acute/chronic HFpEF Got 1 dose furosemide in ED but otherwise euvolemic # acute/chronic anemia Likely anemia of chronic disease. Had a transfusion of 2 units at [facility]. Here 1 unit was transfused. FOBT positive but no active GI bleed. Patient refused further invasive GI workup. After weighing risks and benefits, decision was made to resume apixaban with frequent monitoring of H+H as above. # DM2 with hypoglycemia Became hypoglycemic at times, so Lantus was stopped. A1c is only 6. She was discharged back to [facility] for another round of short-term rehabilitation. Time Spent with Patient Time attestation: Total time spent providing and/or coordinating discharge services: Physical Exam Vital Signs: Vital Signs: Last Vital Signs Temp 98.0 F 05/30/21 07:51 Pulse 79 05/30/21 09:40 Resp 20 05/30/21 07:51 BP 128/63 05/30/21 09:40 Pulse Ox 94 05/30/21 07:51 BMI result Body Mass Index 30.1 Gen: in no acute distress on 2L O2 via NC HEENT: sclera anicteric, moist mucus membranes Neck: supple Lungs: wet inspiratory crackles at L base Heart: regular rate and rhythm, no murmurs Abd: soft, non-tender, non-distended Ext: no edema Skin: warm/well-perfused Neuro: alert and oriented x3, no focal findings Psych: appropriate affect DS: Data Data Completed and Pending Completed studies during hospitalization [Text1]: Laboratory Results WBC 12.3 X10*3/uL (4.8-10.8) H 05/30/21 06:35 RBC 3.17 X10*6/uL (4.20-5.50) L 05/30/21 06:35 Hgb 8.5 g/dl (12.0-16.0) L 05/30/21 06:35 Hct 29.1 % (37.0-47.0) L 05/30/21 06:35 MCV 91.8 fL (80.0-98.0) 05/30/21 06:35 MCH 26.8 pg (27.0-33.0) L 05/30/21 06:35 MCHC 29.2 g/dl (31.0-35.0) L 05/30/21 06:35 RDW 16.6 % (11.0-16.0) H 05/30/21 06:35 Plt Count 251 X10*3/uL (160-400) 05/30/21 06:35 MPV 8.9 fL (9.4-12.3) L 05/30/21 06:35 Immature Gran % (Auto) 1.1 % (0.0-0.4) H 05/28/21 05:59 Neut % (Auto) 62.5 % (45-73) 05/28/21 05:59 Lymph % (Auto) 29.3 % (20-40) 05/28/21 05:59 Knott % (Auto) 6.4 % (2-11) 05/28/21 05:59 Eos % (Auto) 0.6 % (0-4) 05/28/21 05:59 Baso % (Auto) 0.1 % (0-2) 05/28/21 05:59 Lymph # (Auto) 3.7 X10*3/uL (1.2-4.9) 05/28/21 05:59 Knott # (Auto) 0.8 X10*3/uL (0.1-1.2) 05/28/21 05:59 Eos # (Auto) 0.1 X10*3/uL (0.0-0.4) 05/28/21 05:59 Baso # (Auto) 0.0 X10*3/uL (0.0-0.2) 05/28/21 05:59 Abs Immat Gran (auto) 0.14 X10*3/uL (0.00-0.03) H 05/28/21 05:59 Absolute Neuts (auto) 7.8 x10*3/uL (2.0-8.3) 05/28/21 05:59 Absolute Nucleated RBC 0.000 X10*3/uL (0.0-0.012) 05/30/21 06:35 Nucleated RBC % (auto) 0.0 /100WBC (0.0-0.2) 05/30/21 06:35 Smear Path Review SEE NOTE 05/25/21 05:29 PT 14.7 SEC (9.9-13.0) H 05/24/21 01:11 INR 1.3 (0.9-1.1) H 05/24/21 01:11 Sodium 146 mmol/L (135-145) H 05/30/21 06:35 Potassium 3.5 mmol/L (3.3-5.1) 05/30/21 06:35 Chloride 102 mmol/L (96-108) 05/30/21 06:35 Carbon Dioxide 36 mmol/L (22-29) H 05/30/21 06:35 Anion Gap 12 (12-20) 05/30/21 06:35 BUN 14 mg/dL (9-16) 05/30/21 06:35 Creatinine 0.63 mg/dL (0.5-1.4) 05/30/21 06:35 Estim Creat Clear Calc 67.7 05/30/21 06:35 Estimated GFR > 60 05/30/21 06:35 POC Glucose 130 mg/dL (60-115) H 05/30/21 11:37 Random Glucose 84 mg/dL (60-115) 05/30/21 06:35 Estimat Average Glucose 126 mg/dL 05/29/21 10:06 Hemoglobin A1c % 6.0 % 05/29/21 10:06 Calcium 7.7 mg/dL (8.4-10.2) L 05/30/21 06:35 Total Bilirubin 0.4 mg/dL (0.0-1.0) 05/24/21 01:11 AST 13 U/L (5-31) 05/24/21 01:11 ALT 14 U/L (0-31) 05/24/21 01:11 Alkaline Phosphatase 109 U/L (39-117) 05/24/21 01:11 B-Natriuretic Peptide 441 pg/mL (<100) H 05/24/21 01:11 Total Protein 4.8 g/dL (6.5-8.0) L 05/24/21 01:11 Albumin 2.6 g/dL (3.5-5.0) L 05/24/21 01:11 Procalcitonin 0.05 ng/mL 05/30/21 06:35 Urine Color OTHER 05/26/21 00:07 Urine Appearance HAZY 05/26/21 00:07 Urine pH 6.0 (5.0-8.0) 05/26/21 00:07 Ur Specific Ashley 1.015 (1.005-1.025) 05/26/21 00:07 Urine Protein 2+ MG/DL (NEG-TRACE) H 05/26/21 00:07 Urine Glucose (UA) NEG MG/DL (NEG) 05/26/21 00:07 Urine Ketones NEG MG/DL (NEG) 05/26/21 00:07 Urine Blood 3+ (NEG) H 05/26/21 00:07 Urine Nitrite NEG (NEG) 05/26/21 00:07 Ur Leukocyte Esterase 2+ (NEG) H 05/26/21 00:07 Urine RBC 15-29 /HPF (0) H 05/26/21 00:07 Urine WBC 30-49 /HPF (0-4) H 05/26/21 00:07 Ur Squamous Epith Cells NONE /LPF 05/26/21 00:07 Urine Bacteria TRACE /LPF 05/26/21 00:07 Urine Mucus 1+ /LPF 05/26/21 00:07 Stool Occult Blood POSITIVE (NEGATIVE) 05/24/21 03:04 COVID-19 (CHARLES) Negative (Negative) 05/30/21 11:22 COVID-19 Clin Com See Note 05/30/21 11:22 Blood Type O Positive 05/24/21 02:30 Antibody Screen NEGATIVE 05/24/21 02:30 Crossmatch See Detail 05/24/21 02:[address] 05/24/21 00:26 IMPRESSION: Limited evaluation of the head and cervical spine due to motion artifact. No definite acute findings identified. Chest CT 05/24/21 00:26 IMPRESSION: Limited evaluation due to extensive motion artifact. Multifocal bilateral pulmonary opacities could be due to infection or aspiration in the proper clinical setting. Trace right pleural effusion. Fleischner guidelines were followed. Head CT 05/24/21 00:26 IMPRESSION: Limited evaluation of the head and cervical spine due to motion artifact. No definite acute findings identified. Lumbar Spine X-Ray 05/24/21 08:14 IMPRESSION: * No acute abnormalities in the degenerated spine. The lumbar vertebra have well preserved height and alignment. * Old, healed fractures of the left pubic rami. Pelvis X-Ray 05/24/21 08:14 IMPRESSION: * No acute abnormalities in the degenerated spine. The lumbar vertebra have well preserved height and alignment. * Old, healed fractures of the left pubic rami. Renal Ultrasound 05/24/21 11:50 IMPRESSION: Normal ultrasound of the kidneys.. Chest X-Ray 05/29/21 08:42 IMPRESSION: No significant change. Discharge Plan Discharge Discharge Diagnosis: fall, encephalopathy, aspiration pneumonia, hypoxia, UTI associated with ureteral stents, hypernatremia, atrial fibrillation, anemia Referrals: Balwinder Villarreal MD [Physician] - 1 Week Subhash Ng MD [Primary Care Provider] - 1 Week Discharge Medications: New Eliquis 5 mg Tablet 5 mg PO BID Qty: 60 RF: 0 amoxicillin-pot clavulanate 875-125 mg Tablet 875 mg PO Q12H Qty: 4 RF: 0 Continued amiodarone 200 mg tablet 200 mg PO DAILY RF: 0 rosuvastatin 5 mg tablet 1 tab PO DAILY RF: 0 acetaminophen 500 mg Tablet 1,000 mg PO TID RF: 0 tamsulosin 0.4 mg Capsule 0.4 mg PO DAILY RF: 0 pantoprazole 40 mg Tablet,Delayed Release (Dr/Ec) 40 mg PO DAILY RF: 0 chlorhexidine gluconate [Peridex] 0.12 % Mouthwash 30 ml BUCCAL BID RF: 0 melatonin 5 mg Tablet 5 mg PO BEDTIME PRN (Reason: Insomnia) RF: 0 potassium chloride 20 mEq Tablet Extended Release 20 meq PO DAILY RF: 0 nystatin 100,000 unit/gram Cream 1 appl TOPICAL BID RF: 0 Discontinued levofloxacin [Levaquin] 500 mg Tablet 500 mg PO DAILY RF: 0 Lantus Solostar U-100 Insulin 100 unit/mL (3 mL) Insulin Pen 8 unit SUBCUT BEDTIME RF: 0 Diet: advance to usual diet and other Activity on Discharge: As tolerated Stand Alone Forms: Patient Portal Discharge page Activity Restrictions/Additional Instructions: diet: regular clear liquids, chopped [NDD3] solids Care Plan Goals: recovery from hospitalizations prevention of future hospitalizations Health Concerns: fall, encephalopathy, aspiration pneumonia, hypoxia, UTI associated with ureteral stents, hypernatremia, atrial fibrillation, anemia Plan of Treatment: take for 2 more days: amoxicillin;clavulanate 875/125 mg twice daily oxygen 2L by nasal cannula; wean as tolerated follow up with Dr Villarreal [Urology] within 1-2 weeks resume Eliquis for prevention of strokes and monitor hemoglobin/hematocrit weekly for 4 weeks beginning 12/8/21 stop Lantus due to hypoglycemia Assessment: see Discharge Summary Patient Instructions: Ureteral Stent Placement (DC)
[2021-05-30 16:17] LABS: Glucose, Whole Blood 123 mg/dL (60-115)
[2021-05-30] MEDS: Amoxicillin/Potassium Clav 875 MG TABLET PO ×2 (16:35→21:56)
--- NOTE | 2021-05-30 19:26 | PC.NURSE ---
No IV access. Attempted several times. Patient edematous and DRN/DNI. MD Aware. Antibiotics switched to oral.
[2021-05-30 20:28] LABS: Glucose, Whole Blood 199 mg/dL (60-115)
[2021-05-30] MEDS: Melatonin 3 MG TABLET 6 MG PO (21:55)
[2021-05-30] MEDS: Apixaban 5 MG TABLET PO (21:55)
[2021-05-30] MEDS: Insulin Lispro 100 UNIT/ML 3 ML VIAL SUBCUT (21:57)
[2021-05-31 03:52] VITALS: BP 145/62; PULSE 74; RESP 18; TEMP 36.8; O2SAT 94
[2021-05-31 05:38] LABS: Hematocrit 25.8 % (37.0-47.0); Hemoglobin 7.7 g/dl (12.0-16.0)
[2021-05-31 05:57] LABS: Anion Gap 10 (12-20); Blood Urea Nitrogen 14 mg/dL (9-16); Calcium 7.5 mg/dL (8.4-10.2); Carbon Dioxide 36 mmol/L (22-29); Chloride 102 mmol/L (96-108); Creatinine Clr Calc Pharmacy 76.1; Estimated Glomerular Filt Rate > 60; Glucose Random 106 mg/dL (60-115); Potassium 3.5 mmol/L (3.3-5.1); Sodium 144 mmol/L (135-145)
[2021-05-31] MEDS: Omeprazole 20 MG CAPSULE.DR PO (06:28)
[2021-05-31 07:20] VITALS: BP 139/63; PULSE 71; RESP 18; TEMP 36.2; O2SAT 99
[2021-05-31 07:22] LABS: Glucose, Whole Blood 92 mg/dL (60-115)
[2021-05-31] MEDS: Amiodarone HCL 200 MG TABLET PO (10:28)
[2021-05-31] MEDS: Apixaban 5 MG TABLET PO (10:28)
[2021-05-31] MEDS: Bethanechol Chloride 25 MG TABLET PO (10:28)
[2021-05-31] MEDS: Acetaminophen 325 MG TABLET 975 MG PO (10:29)
[2021-05-31] MEDS: Tamsulosin HCL 0.4 MG CAPSULE PO (10:29)
[2021-05-31] MEDS: Amoxicillin/Potassium Clav 875 MG TABLET PO (10:30)
--- NOTE | 2021-05-31 11:08 | P.DS_ITS ---
DS: Providers Provider Date of Service: 05/31/21 Date of admission: 05/24/21 05:34 Primary care physician: Subhash Ng MD Consults: 05/24/21 05:38 Consult to Gastroenterology Routine Consulting Provider: Isaías Jacobo Reason for consultation: guaiac positive stool 05/24/21 05:43 Consult to Cardiology Routine Consulting Provider: Boris Lopez Reason for consultation: CHF 05/25/21 18:28 Consult to Urology Routine Consulting Provider: Balwinder Villarreal Reason for consultation: pus in urine /s/p stent Has provider been notified: No 05/26/21 09:51 Consult to Urology Routine Consulting Provider: Balwinder Villarreal Reason for consultation: b/l stent Has provider been notified: No DS: Diagnosis Discharge Diagnosis (1) PAF (paroxysmal atrial fibrillation): Status: Acute (2) Acute on chronic diastolic (congestive) heart failure: Status: Acute (3) Diabetes: Status: Acute (4) Acute UTI: Status: Acute (5) Sepsis: Status: Acute (6) Anemia: Status: Acute (7) Infection associated with indwelling ureteral stent: Status: Acute (8) Aspiration pneumonia: Status: Acute (9) Acute respiratory failure with hypoxia: Status: Acute (10) Encephalopathy: Status: Acute DS: Summary Hospital Course Hospital Course: From admission history and physical by hospitalist Stanley Natarajan, 05/24/21: 80-year-old female with a past medical history of hypertension, hyperlipidemia, diabetes, CHF, AFib, anemia, chronic AFib, GERD, recent admission to the [facility] on 04/10/2021 for acute blood loss anemia? Secondary to GI bleed -discontinued Eliquis, hematuria, obstructive uropathy, UTI, renal stones - d ischarged on to? [facility] presented to the hospital today with a chief complaint of unwitnessed fall. ? Also patient's home care nurse from the nursing facility at bedside mentioned that patient was noted to be lately confused. Patient is lying in the bed comfortably, supplemental oxygen in place, alert and awake, pleasantly confused, oriented times 1-2. ? patient denied any chest pain palpitations, denies any shortness of breath, denies any nausea vomiting diarrhea, denies any abdominal discomfort. Patient unable to recall the event of fall from the bed.? Per nurse at bedside patient had a fall, unwitnessed, unknown as the patient was consciousness.? Review of all other systems is limited.? ER course: Per ER team patient CT head and cervical spine CT showed no acute findings; CT chest showed multifocal pneumonia concern for aspiration.? On legs noted to have peripheral edema 3+; urine looks cloudy and urinalysis consistent with UTI.? Patient was given Zosyn.? Admitted to the hospital for further management. ? All labs also noted a patient's hemoglobin of 7.5.? Stool guaiac was positive. This 80yo F with HTN, HLD, DM2, HFpEF, chronic AF, CLL, anemia, GERD was recently admitted to [facility] 04/10/21 for acute blood loss anemia secondary to GI bleed. There, apixaban was discontinued due to hematuria. She was found to have obstructive uropathy from nephrolithiasis. Ureteral stents were placed, and discharged to [facility] for rehabilitation 05/02/21. She was admitted here after an unwitnessed fall and found to be septic with UTI and pneumonia. Hospital course by problem: # unwitnessed fall/generalized weakness Likely due to poor by mouth intake, recent bout of UTI, CT head + C-spine no acute abnormality. Will return to short-term rehabilitation. # toxic/metabolic encephalopathy with visual hallucinations Resolved. Multifactorial, due to sepsis and hospital delirium. In past, on mirtazapine, but this was discontinued due to side effects. Frequent re- orientation counseled. # multifocal PNA/suspected aspiration Received 7 days of piperacillin/tazobactam 1 day of amoxicillin/clavulanate, and will get 2 more days of amoxicillin/clavaulanate. Seen by ENGINE COWLING INSTALLER; has history of L vocal cord paralysis. Recommended clear liquids with chopped solids [NDD3]. # UTI, recurrent Likely due to bilateral ureter stone/bilateral stent placement at [facility] 04/20/21 with removal of stones. Urine culture here grew mixed opal. Was treated with 7 days of piperacillin/tazobactam. Urology was consulted and stents and Colon were removed on 05/28/21. Afterwards, the patient voided on her own without any problems. # hyperNa Mild. Free water intake encouraged. # chronic AF Apixaban was resumed with plan for frequent monitoring of H+H as outpatient. # acute/chronic HFpEF Got 1 dose furosemide in ED but otherwise euvolemic # acute/chronic anemia Likely anemia of chronic disease. Had a transfusion of 2 units at [facility]. Here 1 unit was transfused. FOBT positive but no active GI bleed. Patient refused further invasive GI workup. After weighing risks and benefits, decision was made to resume apixaban with frequent monitoring of H+H as above. # DM2 with hypoglycemia Became hypoglycemic at times, so Lantus was stopped. A1c is only 6. discharged back to [facility] for short-term rehabilitation. Time Spent with Patient Time attestation: Total time spent providing and/or coordinating discharge services: Discharge coordination time: Greater than 30 minutes Quality: Stroke Does the patient have a stroke diagnosis?: No Physical Exam Vital Signs: Vital Signs: Last Vital Signs Temp 97.2 F 05/31/21 07:20 Pulse 71 05/31/21 07:20 Resp 18 05/31/21 07:20 BP 139/63 05/31/21 07:20 Pulse Ox 99 05/31/21 07:20 BMI result Body Mass Index 30.1 Gen: in no acute distress on 2L O2 via NC HEENT: sclera anicteric, moist mucus membranes Neck: supple Lungs: few crackles at L base, clear to auscultation no respiratory distress. Heart: regular rate and rhythm, no murmurs Abd: soft, non-tender, non-distended Ext: no edema Skin: warm/well-perfused Neuro: alert and oriented x3, no focal findings Psych: appropriate affect DS: Data Data Completed and Pending Labs on day of discharge: Laboratory Results - last 24 hr 05/30/21 05/30/21 05/30/21 11:22 11:37 16:13 Hgb Hct Sodium Potassium Chloride Carbon Dioxide Anion Gap BUN Creatinine Estim Creat Clear Calc Estimated GFR POC Glucose 130 H 123 H Random Glucose Calcium COVID-19 (CHARLES) Negative COVID-19 Clin Com See Note 05/30/21 05/31/21 05/31/21 20:21 05:16 05:16 Hgb 7.7 L Hct 25.8 L Sodium 144 Potassium 3.5 Chloride 102 Carbon Dioxide 36 H Anion Gap 10 L BUN 14 Creatinine 0.56 Estim Creat Clear Calc 76.1 Estimated GFR > 60 POC Glucose 199 H Random Glucose 106 Calcium 7.5 L COVID-19 (CHARLES) COVID-19 Clin Com 05/31/21 07:15 Hgb Hct Sodium Potassium Chloride Carbon Dioxide Anion Gap BUN Creatinine Estim Creat Clear Calc Estimated GFR POC Glucose 92 Random Glucose Calcium COVID-19 (CHARLES) COVID-19 Clin Com Discharge Plan Discharge Patient Disposition: Xfer [facility] Discharge Diagnosis: fall, encephalopathy, aspiration pneumonia, hypoxia, UTI associated with ureteral stents, hypernatremia, atrial fibrillation, anemia Referrals: Balwinder Villarreal MD [Physician] - 1 Week Subhash Ng MD [Primary Care Provider] - 1 Week Discharge Medications: New Eliquis 5 mg Tablet 5 mg PO BID Qty: 60 RF: 0 amoxicillin-pot clavulanate 875-125 mg Tablet 875 mg PO Q12H Qty: 4 RF: 0 Continued amiodarone 200 mg tablet 200 mg PO DAILY RF: 0 rosuvastatin 5 mg tablet 1 tab PO DAILY RF: 0 acetaminophen 500 mg Tablet 1,000 mg PO TID RF: 0 tamsulosin 0.4 mg Capsule 0.4 mg PO DAILY RF: 0 pantoprazole 40 mg Tablet,Delayed Release (Dr/Ec) 40 mg PO DAILY RF: 0 chlorhexidine gluconate [Peridex] 0.12 % Mouthwash 30 ml BUCCAL BID RF: 0 melatonin 5 mg Tablet 5 mg PO BEDTIME PRN (Reason: Insomnia) RF: 0 potassium chloride 20 mEq Tablet Extended Release 20 meq PO DAILY RF: 0 nystatin 100,000 unit/gram Cream 1 appl TOPICAL BID RF: 0 Discontinued levofloxacin [Levaquin] 500 mg Tablet 500 mg PO DAILY RF: 0 Lantus Solostar U-100 Insulin 100 unit/mL (3 mL) Insulin Pen 8 unit SUBCUT BEDTIME RF: 0 Discharge Orders: Discharge Order (Routine); Ordered 05/31/21 Ordered By: Jackson Noyola Diet: advance to usual diet and other Activity on Discharge: As tolerated Stand Alone Forms: Patient Portal Discharge page Activity Restrictions/Additional Instructions: diet: regular clear liquids, chopped [NDD3] solids Care Plan Goals: recovery from hospitalizations prevention of future hospitalizations Health Concerns: fall, encephalopathy, aspiration pneumonia, hypoxia, UTI associated with ureteral stents, hypernatremia, atrial fibrillation, anemia Plan of Treatment: take for 2 more days: amoxicillin;clavulanate 875/125 mg twice daily oxygen 2L by nasal cannula; wean as tolerated follow up with Dr Villarreal [Urology] within 1-2 weeks resume Eliquis for prevention of strokes and monitor hemoglobin/hematocrit weekly for 4 weeks beginning 06/02/21 stop Lantus due to hypoglycemia Assessment: see Discharge Summary Patient Instructions: Ureteral Stent Placement (DC)
--- NOTE | 2021-05-31 11:12 | MHC.CM.PN ---
PT IS CLEARED TO RETURN TO SHORT TERM REHAB AT [facility] TODAY. [facility] INDICATED [facility] HAVE AUTH AND CAN TAKE PT AT 1300 HOURS. CM CONTACTED PTS HCP, SISTER CRISTY ([phone]) AND INFORMED HER OF DC TIME AND PTS MEDICARE RIGHTS. SHE IS AGREEABLE TO DC PLAN AND ASKS THAT STAFF BE SURE PT HAS HER GLASSES AND iPHONE PT WILL DC TO [facility] TODAY AT 1300 HOURS [facility]IA [facility]
--- NOTE | 2021-05-31 11:13 | PC.NURSE ---
Skin/Wound assessment completed. Patient has stage 2 pressure injuries to coccyx and buttocks. Cleanse with wound cleanser, Triad applied and covered with foam dressing. Scattered bruising on arms. No other skin issues noted at this time.
[2021-05-31 11:23] VITALS: BP 133/58; PULSE 67; RESP 18; TEMP 36.7; O2SAT 99
[2021-05-31 11:27] LABS: Glucose, Whole Blood 144 mg/dL (60-115)
--- NOTE | 2021-05-31 16:51 | MHC.SL.SWA ---
Speech Pathologist Impression: Risk of Aspiration Oralpharyngeal Dysphagia Risk of Aspiration Due to: History of Pneumonia Weak Cough Weak Voice Dysphasia Diet Status: No Change Liquid Consistency and Strategies for Safe Swallow: Liquid Intake Recommendation: Thin Liquid Intake Strategies: Chin Tuck with Liquids Solid Food Consistency: Dietary Recommendations: Chopped/Advanced (NDD3) Additional Modifications to Solid Foods: extra sauce/gravy on meats Oral Medication Intake: Whole with Liquid Compensatory Strategies and Precautions to be Taken for Safe Swallow: Sitting Upright (90 deg) Chin Tuck Liquids from Cup Alternate Liquids/Solids Supervision While Eating and Drinking for Safe Swallow: Intermittent Supervision Swallowing Recommended Treatments: Compens. Strategy Educat. Recommendation for Speech: Speech Therapy through Rehab Facility Comment: Recommend continue inpatient speech therapy for oropharyngeal dysphagia. Patient may benefit from continued speech therapy services at next level of care for dysphagia and voice/communication. Public Health Dietitian Clinican/Clinical Fellow: No Supervisory Statement: I have reviewed and agree with the student/clinical fellow's documentation: N/A Speech Language Pathologist: Gretta Jacques M.A., CCC-VIRTUAL RECRUITER
== END 2021-05-31 14:30 | disposition skilled nursing facility (03) | DRG 698 ==
LOC: HO.ED 05-24 03:06 → HO.EDOVER 05-24 05:40 → HO.S3 05-24 13:28 → HO.IMC 05-25 15:54
PROVIDERS: Family Medicine; Admitting Provider Hospitalist; Emergency Provider Student in an Organized Health Care Education/Training Program; PCP Internal Medicine; Visit Provider Hospitalist
DX: T83.592A Infection and inflammatory reaction due to indwelling ureteral stent, initial encounter (principal); A41.9 Sepsis, unspecified organism; I50.33 Acute on chronic diastolic (congestive) heart failure; G92.9 Unspecified toxic encephalopathy; J69.0 Pneumonitis due to inhalation of food and vomit; N39.0 Urinary tract infection, site not specified; E87.0 Hyperosmolality and hypernatremia; C91.10 Chronic lymphocytic leukemia of B-cell type not having achieved remission; I48.0 Paroxysmal atrial fibrillation; L89.152 Pressure ulcer of sacral region, stage 2; N31.9 Neuromuscular dysfunction of bladder, unspecified; G47.00 Insomnia, unspecified; I07.1 Rheumatic tricuspid insufficiency; Z87.440 Personal history of urinary (tract) infections; D64.9 Anemia, unspecified; E78.5 Hyperlipidemia, unspecified; I27.20 Pulmonary hypertension, unspecified; Z20.822 Contact with and (suspected) exposure to COVID-19; Z23 Encounter for immunization; Z79.01 Long term (current) use of anticoagulants; Z79.899 Other long term (current) drug therapy; Z66 Do not resuscitate
CPT/HCPCS: 36415; 70450; 71046; 71250; 72100; 72125; 72170; 76775; 80048; 80053; 81001; 82272; 82947; 83036; 83880; 84145; 85014; 85018; 85025; 85027; 85610; 86850; 86900; 86901; 86923; 87086; 87635; 90686; 92610; 93005; 93306; 94660; 96365; 96375; 97110; 97163; 97530; 99285; J1940; J2543; P9016

== ENCOUNTER 2021-09-01 09:28 | Outpatient (REF) | payer MEDICARE, MEDICAID, SELFPAY ==
--- NOTE | 2021-09-01 11:31 | MHC.AU.HFU ---
Hearing Instrument Follow-Up- Binaural Date of Visit: 09/01/21 Right Ear: Choir Leader: Phonak Model: [id number] [id number] Serial Number: [id number] Repair Warranty: 06/23/2022 Battery Size: 312 Rock Wool Insulator: Size 2 M Type of Dome: Small open Type of Wax Guard: Cerushield Dispensed By: [facility] Date of Fittin03/28/2019 Left Ear: Choir Leader: Phonak Model: Janeo [id number] Serial Number: [id number] Repair Warranty: 06/23/2022 Battery Size: 312 Rock Wool Insulator: Size 2 M Type of Dome: Small open Type of Wax Guard: Cerushield Dispensed By: [facility] Date of Fittin03/28/2019 Follow-Up Summary: Patient's hearing aids were dropped off for repair, reporting that the right one was not working. Another note stated she has not been able to come in previously as she has been in and out of the hospital. Hearing aids were inspected. Both receivers were occluded with cerumen, moreso on the right hearing aid. Receivers were cleaned, wax traps were replaced. Domes and retention tails replaced. Hearing aids are both amplifying clearly after maintenance. Recommendations: Patient's residence will be contacted to say the hearing aids are ready for pick-up. Diagnosis Code(s): Primary Diagnosis: H90.3 Bilateral Sensorineural Hearing Loss Signature: Provider: Jan Anand, [facility]
== END 2021-09-01 09:29 | disposition home or self-care (01) ==
LOC: HO.HAP 09:28
PROVIDERS: Visit Provider Internal Medicine
DX: Z46.1 Encounter for fitting and adjustment of hearing aid (principal); H90.3 Sensorineural hearing loss, bilateral
CPT/HCPCS: 92593

== ENCOUNTER 2021-09-02 10:05 | Outpatient (REF) | payer MEDICARE, MEDICAID, SELFPAY | END 2021-09-02 10:06 | disposition home or self-care (01) | LOC: HO.HAP 10:05 | PROVIDERS: Visit Provider Internal Medicine | DX: Z13.89 Encounter for screening for other disorder (principal) ==

== ENCOUNTER 2022-04-27 10:36 | Outpatient (REF) | payer MEDICARE, MEDICAID, SELFPAY | END 2022-04-27 10:37 | disposition home or self-care (01) | LOC: HO.SH 10:36 | PROVIDERS: Visit Provider Internal Medicine | DX: H90.3 Sensorineural hearing loss, bilateral (principal) | CPT/HCPCS: 92557; 92567; 92592; V5275 ==

== ENCOUNTER 2022-06-01 09:30 | Outpatient (REF) | payer MEDICARE, MEDICAID, SELFPAY ==
--- NOTE | 2022-06-01 10:57 | MHC.AU.HFU ---
Hearing Instrument Follow-Up- Binaural Date of Visit: 06/01/22 Right Ear: Phonak Janeo [id number], [id number], sandalwood Repair Warranty: 06/23/2022 Loss and Damage Warranty: used Battery Size: 312 Fixer Supervisor: Size 2 M Type of Dome: Small open Type of Wax Guard: Cerushield Dispensed By: [facility] Date of Fittin03/28/2019 Left Ear: Phonak Janeo [id number], [id number], sandalwood Repair Warranty: 06/23/2022 Loss and Damage Warranty: used Battery Size: 312 Fixer Supervisor: C Shell, 2/M certified art therapist, clear with canal lock, [id number], warranty 08/04/2022 Type of Wax Guard: Cerustop Dispensed By: [facility] Date of Fittin03/28/2019 Follow-Up Summary: The patient was seen today for the replacement fitting of her left hearing aid coupled to a new left CShell mold. The left hearing aid was programmed with her existing right hearing aid. I changed the acoustic settings in [employer] to reflect the new CShell mold. Re-ran the feedback engineering research manager. Hearing aids are set to 100% target gain. The patient reported good sound bilaterally. She was very impressed with how well the new left mold fit. She would like a mold made for her right hearing aid as well since she has always struggled with retention. An impression was taken of the right ear without incident. An order is placed through [employer] for a matching right CShell. Once the order arrives, our clinic will contact the patient to schedule a visit. Explained that the one time L&D warranty has now been used for both right and left hearing aids. The patient indicated understanding. Diagnosis Code(s): Primary Diagnosis: H90.3 Bilateral Sensorineural Hearing Loss Signature: Provider: Jan Plascencia, [facility]
== END 2022-06-01 09:31 | disposition home or self-care (01) ==
LOC: HO.HAP 09:30
PROVIDERS: Visit Provider Internal Medicine
DX: Z46.1 Encounter for fitting and adjustment of hearing aid (principal); H90.3 Sensorineural hearing loss, bilateral
CPT/HCPCS: V5264; V5275

== ENCOUNTER 2022-08-16 12:55 | Outpatient (REF) | payer MEDICARE, MEDICAID, SELFPAY | END 2022-08-16 12:56 | disposition home or self-care (01) | LOC: HO.HAP 12:55 | PROVIDERS: Visit Provider Internal Medicine | DX: Z46.1 Encounter for fitting and adjustment of hearing aid (principal) | CPT/HCPCS: V5264 ==

== ENCOUNTER 2023-02-14 10:48 | Outpatient (REF) | payer MEDICARE, MEDICAID, SELFPAY | END 2023-02-14 10:49 | disposition home or self-care (01) | LOC: HO.HAP 10:48 | PROVIDERS: Visit Provider Internal Medicine | DX: Z13.89 Encounter for screening for other disorder (principal) ==

== ENCOUNTER 2023-03-01 16:04 | Outpatient (REF) | payer MEDICARE, MEDICAID, SELFPAY | END 2023-03-01 16:05 | disposition home or self-care (01) | LOC: HO.HAP 16:04 | PROVIDERS: Visit Provider Internal Medicine | DX: Z13.89 Encounter for screening for other disorder (principal) ==

== ENCOUNTER 2024-03-01 13:57 | Outpatient (REF) | payer MEDICARE, MEDICAID, SELFPAY | END 2024-03-01 13:58 | disposition home or self-care (01) | LOC: HO.HAP 13:57 | PROVIDERS: Visit Provider Internal Medicine | DX: Z46.1 Encounter for fitting and adjustment of hearing aid (principal); H90.3 Sensorineural hearing loss, bilateral | CPT/HCPCS: 92593; 99499 ==

== ENCOUNTER 2024-03-01 14:00 | Outpatient (REF) | payer SELFPAY | END 2024-03-01 14:01 | disposition home or self-care (01) | LOC: HO.HAP 14:00 | PROVIDERS: Visit Provider Internal Medicine | DX: Z46.1 Encounter for fitting and adjustment of hearing aid (principal) | CPT/HCPCS: V5267 ==

== ENCOUNTER 2024-04-22 09:38 | Outpatient (REF) | payer MEDICARE, MEDICAID, SELFPAY ==
--- NOTE | 2024-04-22 10:53 | MHC.AU.MED ---
Medical Clearance for Hearing Instrumentation Date: 04/22/24 Patient Name: Zoey Michaels Date of : 1940 Primary Care Provider: Referring Provider: Moshe Snider MD We have seen your patient on 04/22/24 and have determined that they are a candidate for amplification (See accompanying report). Specifically, they would benefit from: Hearing aid use in both ears There is a statute that addresses Medical Evaluation Requirements prior to fitting a patient with a hearing aid. According to [place] statute 265 CMR:6.03(1), (a) General. Except as provided in 265 CMR 6.03(1)(b), a cloth shearing supervisor shall not sell a hearing aid unless the prospective user has presented to the cloth shearing supervisor a written statement signed by a licensed physician that states that the patient's hearing loss has been medically evaluated and the patient may be considered a candidate for a hearing aid. The medical evaluation must have taken place within the preceding six months. Please note: Due to the [place] Statute referenced above, we cannot accept a signature other than that of a licensed physician. CASHIER AND WAITER/WAITRESS and PA signatures cannot be accepted. I am in agreement with the above recommendation. There is no medical contraindication for hearing instrumentation. Physician Signature Date Physician Name (Printed)
== END 2024-04-22 09:39 | disposition home or self-care (01) ==
LOC: HO.SH 09:38
PROVIDERS: Visit Provider Internal Medicine
DX: Z01.118 Encounter for examination of ears and hearing with other abnormal findings (principal); H90.3 Sensorineural hearing loss, bilateral
CPT/HCPCS: 92552; 92556; 92591

== ENCOUNTER 2024-05-09 14:57 | Outpatient (REF) | payer MEDICARE, MEDICAID, SELFPAY | END 2024-05-09 14:58 | disposition home or self-care (01) | LOC: HO.HAP 14:57 | PROVIDERS: Visit Provider Internal Medicine | DX: Z46.1 Encounter for fitting and adjustment of hearing aid (principal); H90.3 Sensorineural hearing loss, bilateral | CPT/HCPCS: V5011; V5020; V5160; V5261; V5264; V5266 ==

== ENCOUNTER 2024-11-14 13:55 | Outpatient (REF) | payer MEDICARE, MEDICAID, SELFPAY ==
--- OUTSIDE RECORDS SUMMARY | 2024-11-14 14:02 | XMS_ITS | Clinical Summary ---
Author Organization [facility] Address [address] [place] [address] Phone Care Team Providers Care Natural Gas Engineer Name Role Phone Joanie Snider MD Primary Care Provider [phone] Allergies Active Allergy Reactions Criticality Noted Date Comments Meperidine 07/25/2018 Metformin 07/25/2018 Medications POTASSIUM CHLORIDE ORAL Take 20 mEq by mouth daily. Active aspirin 81 mg EC tablet Take 1 tablet (81 mg total) by mouth 1 (one) time each day. Active bumetanide (BUMEX) 0.5 mg tablet Take 1 tablet (0.5 mg total) by mouth daily. Active cholecalciferol (VITAMIN D-3) 50 mcg (2,000 unit) tablet Take 2,000 Units by mouth daily. Active dronedarone (MULTAQ) 400 mg tablet Take 1 tablet (400 mg total) by mouth 2 (two) times a day. 10/06/2023 Active ferrous sulfate 325 mg (65 mg elemental iron) tablet Take 1 tablet (325 mg total) by mouth every morning with breakfast. Active rosuvastatin (CRESTOR) 5 mg tablet Take 1 tablet (5 mg total) by mouth 1 (one) time each day. Active SITagliptin phosphate (Januvia) 25 mg tablet Take 1 tablet (25 mg total) by mouth 1 (one) time each day. Active pantoprazole (PROTONIX) 40 mg EC tablet Take 1 tablet (40 mg total) by mouth 1 (one) time each day. Do not crush, chew, or split. 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 ([facility] V24, [facility] V28) 09/04/2018 Complete tear of right rotator cuff 09/04/2018 CLL (chronic lymphocytic patricia kemia) ([facility] V24, [facility] V28) 07/25/2018 Iron deficiency anemia due to chronic blood loss 07/25/2018 Atrial fibrillation ([facility] V24, [facility] V28) Overview (10/08/2024): DX:Atrial fibrillation (HCC) GERD (gastroesophageal reflux disease) Overview (10/08/2024): DX:GERD (gastroesophageal reflux disease) Hypertension Overview (10/08/2024): DX:Hypertension KATHLEEN on CPAP Vocal cord paralysis Overview (10/08/2024): DX:Vocal cord paralysis Mitral valve disease Encounters Date Type Department Care Team Description 11/13/2024 Telephone Thoracic Surgery - [place] [address] [facility] [address] [place] [address] Teresa Aguirre MA Appointment (Follow-Up Office Visit) 10/28/2024 2:30 PM EDT Office Visit [facility] Hematology Oncology [address] [place] [address] Rubens Al MD CLL (chronic lymphocytic leukemia) ([facility] V24, [facility] V28) (Primary Dx); Iron deficiency anemia due to chronic blood loss 10/21/2024 10:45 AM EDT Consult Thoracic Surgery - [place] [address] [facility] [address] [place] [address] Janeen Carver MD Incarcerated paraesophageal hernia (Primary Dx) 10/16/2024 1:18 PM EDT Anesthesia Event [facility] Endoscopy [address] [place] [phone] Bimal Betts DO 10/16/2024 12:27 PM EDT - 10/16/2024 11:59 PM EDT Hospital Encounter [facility] End[facility] [address] [place] [phone] Shen Briones MD McAdams, Megan, CRNA Korobkov, Vitaliy, DO Dysphagia Discharge Disposition: Home or Self Care 10/09/2024 1:10 PM EDT Office Visit [facility] - [facility] [address] [facility] [address] [place] [address] Lacy Shah PA Atrial fibrillation, unspecified type (CMS/HCC V24, CMS/HCC V28) (Primary Dx); KATHLEEN on CPAP; Primary hypertension; Mitral valve disease 10/09/2024 Telephone Gastroenterology - [place] [facility] [address] [facility] [address] [place] [address] Aliza Argueta LPN Anticoagulation (EGD on 10/16/[address] Briones) 10/08/2024 2:20 PM EDT Consult Gastroenterology - [address] [place] [address] [address] [facility] [address] [place] [phone] Shen Briones MD Esophageal dysphagia (Primary Dx) from Last 3 Months Surgical History Surgery Date Site/Laterality Comments HYSTERECTOMY PROCEDURE:HYSTERECTOMY APPENDECTOMY PROCEDURE:APPENDECTOMY KNEE ARTHROSCOPY PROCEDURE: [place] ARTHROSCOPY AID [place] SPINE&/FX KNEE W/O FIXJ; COMMENT: Multiple knee arthroscopic surgeries OTHER SURGICAL HISTORY PROCEDURE: HISTORY OTHER; COMMENT: Bunionectomy TONSILLECTOMY PROCEDURE: HISTORICAL TONSILLECTOMY ADENOIDECTOMY PROCEDURE: HISTORICAL ADENOIDECTOMY WATCHMAN IMPLANT Medical History Medical History Date Comments Iron deficiency anemia, unspecified DX:Iron deficiency anemia, unspecified Hypertension DX:Hypertension Diabetes mellitus ([facility] V 24, [facility] V28) DX:Diabetes mellitus ([facility]) Atrial fibrillation ([facility] V24, [facility] V28) DX:Atrial fibrillation (HCC) Vocal cord paralysis DX:Vocal co rd paralysis URTI (acute upper respiratory infection) DX:URTI (acute upper respiratory infection) Leukocytosis DX:Leukocytosis GERD (gastroesophageal reflux disease) DX:GERD (gastroesophageal reflux disease) CAP (community acquired pneumonia) DX:CAP (community acquired pneumonia) KATHLEEN on CPAP Pulmonary hypertension ([facility] V24, [facility] V28) Mitral valve disease Family History Medical History Relation Name Comments Cancer Brother 1 prostate Heart failure Brother 2 Hypertension Brother 2 Cancer Father lung Lung cancer Father Heart failure Mother Hypertension Mother Relation Name Status Comments Brother 1 Brother 2 Father Mother Social History Tobacco Use Types Packs/Day Years Used Date Smoking Tobacco: Never Passive Smoke Exposure: Past Smokeless Tobacco: Never Tobacco Cessation:Counseling Given: Not Answered Alcohol Use Standard Drinks/Week Comments Yes 0 (1 standard drink = 0.6 oz pur e alcohol) Interpersonal Safety Answer Date Record ed Physical Abuse 10/16/2024 Verbal Abuse 10/16/2024 Comments No Sex and Gender Information Value Date Recorded Sex Assigned at Female 09/02/2024 9:37 AM EDT Legal Sex Female 11:56 PM EST Gender Identity Female 09/02/2024 9:37 AM EDT Sexual Orientation Straight 09/02/2024 9: 37 AM EDT Obstetrics History Last Filed Vital Signs Vital Sign Reading Time Taken Comments Blood Pressure 107/39 10/28/2024 2:27 PM EDT Pulse 68 10/28/2024 2:27 PM EDT Temperature 36.9 ??C (98.4 ??F) 10/28/2024 2:27 PM ED T Respiratory Rate 18 10/21/2024 10:55 AM EDT Oxygen Saturation 99% 10/28/2024 2:27 PM EDT Inhaled Oxygen Concentration - - Weight 53.3 kg (117 lb 6.4 oz) 10/28/2024 2:27 P M EDT Height 149.9 cm (4' 11 ) 10/28/2024 2:27 PM EDT Body Mass Index 23.71 10/28/2024 2:27 PM EDT Plan of Treatment Upcoming Encounters Date Type Department Care Team (Late st Contact Info) Description 11/15/2024 2:30 PM EDT Appointment [facility] CT Scan [address] [place] [phone] 11/28/2024 10:15 AM EDT Office Visit Thoracic Surgery - [place] [address] [facility] [address] [place] [address] Janeen Carver MD 299 [facility] [address] [place] [address] 01/30/2025 2:30 PM EDT Office Visit [facility] Hematology Oncology [address] [place] [phone] Rubens Bradley MD [address] [place] [phone] 04/09/2025 1:10 PM EDT Office Visit [facility] - [facility] [address] [facility] [address] [place] [address] Lacy Shah PA 300 [facility] [address] [place] [address] Health Maintenance Due Date Last Done Comments Diabetes: Annual Foot Exam 1950 Diabetes: Annual Retina Eye Exam 1950 Depression Screening 05/29/2022 Medicare Annual Wellness Visit 05/29/2022 Social Influencers of Health Screening 05/29/2022 COVID-19 Vaccine (8 - Pfizer risk season) 2024 04/08/2024, 04/19/2023, 11/14/2022, Additional history exists Diabetes: Blood Sugar Control Test (HGBA1C) 12/13/2024 06/14/2024 Falls Risk Assessment 10/16/2025 10/16/2024 Hypertension/CHF/CAD Annual BMP Blood Test 10/22/2025 10/22/2024, 06/14/2024, 05/01/2023, Additional history exists Cholesterol Screening (Lipid Panel) 06/14/2029 06/14/2024 Osteoporosis Screening (Bone Density Screening) 11/02/2032 11/02/2022 DTaP,Tdap,and Td Vaccines (2 - Td or Tdap) 08/20/2034 08/20/2024 Pneumococcal Vaccine: 50+ Years Completed 01/09/2017, 07/29/2013 Zoster Vaccines Completed 07/15/2019, 04/27, 06/10/2013 RSV Immunization Adult Patients Completed 03/29/2024, 08/04/2023 Influenza Vaccine Completed 04/08/2024, , 04/18/2022, Additional history exists HIB Vaccines Aged Out No longer eligi ble based on patient's age to complete this topic HPV Vaccines Aged Out No longer eligi ble based on patient's age to complete this topic Hepatitis A Vaccines Aged Out No long er eligible based on patient's age to complete this topic Hepatitis B Vaccines Aged Out No long er eligible based on patient's age to complete this topic IPV Vaccines Aged Out No longer eligi ble based on patient's age to complete this topic MMR Vaccines Aged Out No longer eligi ble based on patient's age to complete this topic Meningococcal ACWY Vaccine Aged Out N o longer eligible based on patient's age to complete this topic Meningococcal B Vaccine Aged Out No l onger eligible based on patient's age to complete this topic RSV Immunization Patients Under 20 months Aged Out No longer eligible based on patient's age to complete this topic Varicella Vaccines Aged Out No longer eligible based on patient's age to complete this topic Procedures Procedure Name Priority Date/Time Associated Diagnosis Comments MANUAL DIFFERENTIAL - SYSMEX WAM Routine 10/22/2024 9:39 AM EDT CLL (chronic lymphocytic leukemia) (CMS/HCC V24, CMS/HCC V28) Diabetes mellitus (CMS/HCC V24, CMS/HCC V28) CBC WITH AUTO DIFFERENTIAL Routine 10/22/2024 9:39 AM EDT CLL (chronic lymphocytic leukemia) (CMS/HCC V24, CMS/HCC V28) Diabetes mellitus (CMS/HCC V24, CMS/HCC V28) COMPREHENSIVE METABOLIC PANEL Routine 10/22/2024 9:39 AM EDT CLL (chronic lymphocytic leukemia) ([facility] V24, [facility] V28) Diabetes mellitus ([facility] V24, [facility] V28) CBC AND DIFFERENTIAL Routine 10/22/2024 9:39 AM EDT CLL (chronic lymphocytic leukemia) ([facility] V24, [facility] V28) Diabetes mellitus ([facility] V24, [facility] V28) EGD Routine 10/16/2024 1:28 PM EDT Dysphagia ECG 12-LEAD Routine 10/09/2024 1:55 PM EDT Atrial fibrillation, unspecified type ([facility] V24, [facility] V28) LIPID PANEL WITH REFLEX TO DIRECT LDL Routine 06/14/2024 11:22 AM EST Diabetes mellitus ([facility] V24, [facility] V28) Mixed hyperlipidemia Vitamin D deficiency disease HEMOGLOBIN A1C Routine 06/14/2024 11:21 AM EST Diabetes mellitus ([facility] V24, [facility] V28) Mixed hyperlipidemia Vitamin D deficiency disease [facility] Routine 11/02/2022 11:26 AM EDT Encounter for screening for osteoporosis from Last 3 Months or Most Recently Relevant to Health Maintenance Results * (ABNORMAL) Manual differential (10/22/2024 9:39 AM EDT) Neutrophils % 6.0 % LAB HEMETOLOGY METHOD 10/22/2024 2:32 PM EDT [facility] Lymphocytes % 92.0 % LAB HEMETOLOGY METHOD 10/22/2024 2:32 PM EDT [facility] Monocytes % 0.0 % LAB HEMETOLOGY METHOD 10/22/2024 2:32 PM EDT [facility] Eosinophils % 2.0 % LAB HEMETOLOGY METHOD 10/22/2024 2:32 PM EDT [facility] Basophils % 0.0 % LAB HEMETOLOGY METHOD 10/22/2024 2:32 PM EDT [facility] Neutrophils Absolute Manual 4.74 1.50 - 7.00 K/mcL LAB HEMETOLOGY METHOD 10/22/2024 2:32 PM EDT [facility] Lymphocytes Absolute 72.68(H) 1.00 - 5.00 K/mcL LAB HEMETOLOGY METHOD 10/22/2024 2:32 PM EDT [facility] Monocytes Absolute Manual 0.00(L) 0.20 - 1.00 K/[facility] LAB HEMETOLOGY METHOD 10/22/2024 2:32 PM EDT [facility] Eosinophils Absolute Manual 1.58(H) 0.00 - 0.50 K/mcL LAB HEMETOLOGY METHOD 10/22/2024 2:32 PM EDT [facility] Basophils Absolute Manual 0.00 0.00 - 0.20 K/[facility] LAB HEMETOLOGY METHOD 10/22/2024 2:32 PM EDT [facility] Rbc Morphology Consistent with indices Consistent with indices, Normal for LAB HEMETOLOGY METHOD 10/22/2024 2:32 PM EDT [facility] Platelet Morphology - WAM See Note(A) Normal LAB HEMETOLOGY METHOD 10/22/2024 2:32 PM EDT [facility] Comment:PLT: Normal Blood Venous blood specimen / Unknown Venipuncture / Unknown 10/22/2024 9:39 AM EDT 10/22/2024 11:39 AM EDT us Joanie Snider MD LAB BLOOD ORDERABLES Final Res ult [facility] [address] [place] [address], * (ABNORMAL) CBC auto differential (10/22/2024 9:39 AM EDT) WBC 79.0(HH) 4.8 - 10.8 K/mcL LAB HEMETOLOGY METHOD 10/22/2024 2:32 PM EDT [facility] RBC 3.10(L) 3.80 - 4.80 M/mcL LAB HEMETOLOGY METHOD 10/22/2024 2:32 PM EDT [facility] Hemoglobin 9.1(L) 11.5 - 16.0 g/dL LAB HEMETOLOGY METHOD 10/22/2024 2:32 PM EDT [facility] Hematocrit 29.9(L) 35.0 - 47.0 % LAB HEMETOLOGY METHOD 10/22/2024 [facility] MCV 96.5 79.0 - 98.0 FL LAB HEMETOLOGY METHOD 10/22/2024 2:32 PM [facility] MCH 29.4 27.0 - 32.0 pcg LAB HEMETOLOGY METHOD 10/22/2024 2:32 PM [facility] MCHC 30.4(L) 32.0 - 37.0 g/dL LAB HEMETOLOGY METHOD 10/22/2024 2:32 PM [facility] RDW 14.8 11.0 - 15.0 % LAB HEMETOLOGY METHOD 10/22/2024 2:32 PM [facility] Platelets 171 130 - 400 K/mcL LAB HEMETOLOGY METHOD 10/22/2024 2:32 PM [facility] MPV 9.2 7.0 - 11.0 FL LAB HEMETOLOGY METHOD 10/22/2024 2:32 PM [facility] NRBC 0.0 <1.0 % LAB HEMETOLOGY METHOD 10/22/2024 2:32 PM EDT [facility] NRBC Absolute 0.00 <0.10 K/mcL LAB HEMETOLOGY METHOD 10/22/2024 2:32 PM [facility] Blood Venous blood specimen / Unknown Venipuncture / Unknown 10/22/2024 9:39 AM EDT 10/22/2024 11:39 AM EDT us Joanie Snider MD LAB BLOOD ORDERABLES Final Res ult [facility] [address] [place] [address], * (ABNORMAL) Comprehensive metabolic panel (10/22/2024 9:39 AM EDT) Sodium 144 133 - 145 mmol/L LAB CHEMISTRY METHOD 10/22/2024 12:47 PM [facility] Potassium 4.2 3.5 - 5.5 mmol/L LAB CHEMISTRY METHOD 10/22/2024 12:47 PM [facility] Chloride 107 96 - 110 mmol/L LAB CHEMISTRY METHOD 10/22/2024 12:47 PM [facility] CO2 27 21 - 32 mmol/L LAB CHEMISTRY METHOD 10/22/2024 12:47 PM [facility] Anion Gap 10 3 - 11 LAB CHEMISTRY METHOD 10/22/2024 12:47 PM [facility] Glucose 103(H) 70 - 100 mg/dL LAB CHEMISTRY METHOD 10/22/2024 12:47 PM [facility] BUN 24 5 - 25 mg/dL LAB CHEMISTRY METHOD 10/22/2024 12:47 PM [facility] Creatinine 1.22(H) 0.50 - 1.10 mg/dL LAB CHEMISTRY METHOD 10/22/2024 12:47 PM [facility] eGFR 43(L) >=60 mL/min/1. 73m2 LAB CHEMISTRY METHOD 10/22/2024 12:47 PM [facility] Comment:Calculation based on the??Chronic Kidney Disease Epidemiology Collaboration (CKD-EPI) equation refit??without adjustment for race. BUN/Creatinine Ratio 19.7 LAB CHEMISTRY METHOD 10/22/2024 12:47 PM [facility] Calcium 8.9 8.5 - 10.5 mg/dL LAB CHEMISTRY METHOD 10/22/2024 12:47 PM [facility] AST (SGOT) 20 10 - 42 unit/L LAB CHEMISTRY METHOD 10/22/2024 12:47 PM [facility] ALT (SGPT) 25 10 - 60 unit/L LAB CHEMISTRY METHOD 10/22/2024 12:47 PM [facility] Alkaline Phosphatase 122(H) 42 - 121 unit/L LAB CHEMISTRY METHOD 10/22/2024 12:47 PM [facility] Total Protein 5.7(L) 6.0 - 8.0 g/dL LAB CHEMISTRY METHOD 10/22/2024 12:47 PM [facility] Albumin 3.6 3.2 - 5.0 g/dL LAB CHEMISTRY METHOD 10/22/2024 12:47 PM [facility] Total Bilirubin 0.6 0.0 - 1.4 mg/dL LAB CHEMISTRY METHOD 10/22/2024 12:47 PM [facility] Blood Venous blood specimen / Unknown Venipuncture / Unknown 10/22/2024 9:39 AM EDT 10/22/2024 11:26 AM EDT us Joanie Snider MD LAB BLOOD ORDERABLES Final Res ult [facility] [address] [place] [address], * EGD Esophageal Dilation with Balloon; [facility]est[facility] - [facility] (10/16/2024 1:28 PM EDT) Anatomical Region Laterality Modality Endoscopy 10/16/2024 1:12 PM EDT Impressions 10/16/2024 1:31 PM EDT - Z-line regular, 28 cm from the incisors. ? - Medium-sized paraesophageal hernia. ? - Normal stomach. ? - Normal examined duodenum. ? - No specimens collected. Recommendation: ?- Discharge patient to home. ? - Resume previous diet. ? - Continue present medications. ? - Refer to a surgeon if symptoms persist. Narrative 10/16/2024 1:31 PM EDT [facility] Patient Name: Young Michaels Procedure Date: 10/16/2024 1:12 PM Date of : 1940 Age: 84 Room: ROOM 15 Gender: Female Note Status: Finalized Attending MD: Shen Briones MD, Procedure Date No Time: 10/16/2024 Procedure: ? Upper GI endoscopy Indications: ? Dysphagia, Abnormal UGI series Providers: ? Shen Briones MD Referring MD: ?Shen Briones MD Medicines: ? Monitored Anesthesia Care Complications: ? No immediate complications. Estimated Blood Loss: ? Estimated blood loss: none. Procedure: ? Pre-Anesthesia Assessment: ? - ASA Grade Assessment: III - A patient with severe ? systemic disease. ? - After reviewing the risks and benefits, the patient ? was deemed in satisfactory condition to undergo the ? procedure. ? After obtaining informed consent, the endoscope was ? passed under direct vision. Throughout the procedure, ? the patient's blood pressure, pulse, and oxygen ? saturations were monitored continuously.The Endoscope ? was introduced through the mouth, and advanced to the ? second part of duodenum. The upper GI endoscopy was ? accomplished without difficulty. The patient tolerated ? the procedure well. Findings: ?The Z-line was regular and was found 28 cm from the ? incisors. ? A medium-sized type-III paraesophageal hernia was ? found. The hiatal narrowing was 35 cm from the ? incisors. The Z-line was 25 cm from the incisors. ? The exam of the esophagus was otherwise normal. ? The stomach was normal. ? The examined duodenum was normal. Procedure Code(s): ? --- Professional --- ? 49228, Esophagogastroduodenoscopy, flexible, ? transoral; diagnostic, including collection of ? specimen(s) by brushing or washing, when performed ? (separate procedure) Diagnosis Code(s): ? --- Professional --- ? K44.9, Diaphragmatic hernia without obstruction or ? gangrene ? R13.10, Dysphagia, unspecified ? R93.3, Abnormal findings on diagnostic imaging of ? other parts of digestive tract CPT copyright 2020 [employer]. All rights reserved. The codes documented in this report are preliminary and upon office cleaner review may be revised to meet current compliance requirements. Shen Briones MD 10/16/2024 1:31:05 PM This report has been signed electronically.Shen Briones MD Number of Addenda: 0 Note Initiated On: 10/16/2024 1:12 PM Scope In: Scope Out: ? Endoscopy Department at [facility] - [address] [place] [address], ? [place] [address] Procedure Note Shen Briones MD - 10/16/2024 [facility] Patient Name: Young Michaels Procedure Date: 10/16/2024 1:12 PM Date of : 1940 Age: 84 Room: ROOM 15 Gender: Female Note Status: Finalized Attending MD: Shen Briones MD, Procedure Date No Time: 10/16/2024 Procedure: Upper GI endoscopy Indications: Dysphagia, Abnormal UGI series Providers: Shen Briones MD Referring MD: Shen Briones MD Medicines: Monitored Anesthesia Care Complications: No immediate complications. Estimated Blood Loss: Estimated blood loss: none. Procedure: Pre-Anesthesia Assessment: - ASA Grade Assessment: III - A patient with severe systemic disease. - After reviewing the risks and benefits, thepatient was deemed in satisfactory condition to undergo the procedure. After obtaining informed consent, the endoscope was passed under direct vision. Throughout theprocedure, the patient's blood pressure, pulse, and oxygen saturations were monitored continuously.TheEndoscope was introduced through the mouth, and advanced tothe second part of duodenum. The upper GI endoscopy was accomplished without difficulty. The patienttolerated the procedure well. Findings: The Z-line was regular and was found 28 cm from the incisors. A medium-sized type-III paraesophageal hernia was found. The hiatal narrowing was 35 cm from the incisors. The Z-line was 25 cm from the incisors. The exam of the esophagus was otherwise normal. The stomach was normal. The examined duodenum was normal. Procedure Code(s): --- Professional --- 69435, Esophagogastroduodenoscopy, flexible, transoral; diagnostic, including collection of specimen(s) by brushing or washing, when performed (separate procedure) Diagnosis Code(s): --- Professional --- K44.9, Diaphragmatic hernia without obstruction or gangrene R13.10, Dysphagia, unspecified R93.3, Abnormal findings on diagnostic imaging of other parts of digestive tract CPT copyright 2020 [employer]. All rights reserved. The codes documented in this report are preliminary and upon office cleaner reviewmay be revised to meet current compliance requirements. Shen Briones MD 10/16/2024 1:31:05 PM This report has been signed electronically.Shen Briones MD Number of Addenda: 0 Note Initiated On: 10/16/2024 1:12 PM Scope In: Scope Out: Endoscopy Department at [facility] - [address] [place] [id number] IMPRESSION: - Z-line regular, 28 cm from the incisors. - Medium-sized paraesophageal hernia. - Normal stomach. - Normal examined duodenum. - No specimens collected. Recommendation: - Discharge patient to home. - Resume previous diet. - Continue present medications. - Refer to a surgeon if symptoms persist. Shen Briones MD GI~PROCEDURE ORDERABLES Final Result * ECG 12 lead (10/09/2024 1:55 PM EDT) Ventricular Rate ECG 75 BPM GEMUSE Atrial Rate 75 BPM GEMUSE P-R Interval 204 ms GEMUSE QRS Duration 72 ms GEMUSE Q-T Interval 418 ms GEMUSE QTc 466 ms GEMUSE P Wave [place] 69 degrees GEMUSE R [place] 124 degrees GEMUSE T [place] 40 degrees GEMUSE ECG Interpretation Normal sinus rhythm Right axis deviation Low voltage QRS Septal infarct (cited on or before 03-OCT-2021) When compared with ECG of 14-MAY-2022 07:54, [place] has changed Confirmed by EMMA LOVELACE ([id number]) on 10/13/2024 2:52:53 PM GEMUSE 10/09/2024 1:17 PM EDT 10/13/2024 2:52 PM EDT us Lacy PARTIDA ECG ORDERABLES Edited Result - Final GEMUSE * Lipid panel with reflex to direct LDL (06/14/2024 11:22 AM EST) Cholesterol 83 0 - 200 mg/dL LAB CHEMISTRY METHOD 06/14/2024 2:29 PM EST [facility] Triglycerides 60 0 - 150 mg/dL LAB CHEMISTRY METHOD 06/14/2024 2:29 PM [facility] HDL 53 >=40 mg/dL LAB CHEMISTRY METHOD 06/14/2024 2:29 PM [facility] LDL Calculated 18 0 - 100 mg/dL LAB CHEMISTRY METHOD 06/14/2024 2:29 PM [facility] VLDL Cholesterol Jose Armando 12 mg/dL LAB CHEMISTRY METHOD 06/14/2024 2:29 PM [facility] Non HDL Chol. (LDL+VLDL) 30 <145 mg/dL LAB CHEMISTRY METHOD 06/14/2024 2:29 PM [facility] Chol/HDL Ratio 1.6 0.0 - 4.4 LAB CHEMISTRY METHOD 06/14/2024 2:29 PM [facility] Blood Venous blood specimen / Unknown Venipuncture / Unknown 06/14/2024 11:22 AM EST 06/14/2024 12:31 PM EST Joanie Snider MD LAB BLOOD ORDERABLES Final Res ult [facility] [address] [place] [address], * Hemoglobin A1c (06/14/2024 11:21 AM EST) Hemoglobin A1C 5.9 <6.5 % LAB CHEMISTRY METHOD 06/14/2024 9:09 PM [facility] Mean Bld Glu Estim. 123 mg/dL LAB CHEMISTRY METHOD 06/14/2024 9:09 PM [facility] Blood Venous blood specimen / Unknown Venipuncture / Unknown 06/14/2024 11:21 AM EST 06/14/2024 12:32 PM EST us Joanie Snider MD LAB BLOOD ORDERABLES Final Res ult [facility] [address] [place] [address], * [facility] DEXA AXIAL SKELETON (11/02/2022 11:26 AM EDT) Anatomical Region Laterality Modality Mammography 11/02/2022 10:2 7 AM EDT Narrative 11/02/2022 11:26 AM EDT [facility] Diagnostic Imaging Department [address] [place] [address] Patient: ??YOUNG MICHAELS ?/Age/Sex: 1940 - 82 - F Unit#: ??[id number] ? Location/Status: ??SPDIMAM/REG CLI ? Mnemonic/Ordering Site: ??MAMDEXAAX/SPMAM Ordering Physician: ??JOANIE SNIDER MD [facility] Dexa Axial Skeleton - 11/02/221051 HISTORY: ??The patient is an 82-year-old postmenopausal female with clinical concern for metabolic bone disease. FINDINGS: ??Dual energy x-ray absorptiometry of the lumbar spine and femurs is performed. The mean bone mineral density at L1-L4 is 0.868 gm/cm2 which is 74% of that of young normals and 94% of that of age matched controls. This yields a T-score of -2.6 and a Z-score of -0.5 which is diagnostic of osteoporosis. The mean bone mineral density of the femurs bilaterally is 0.647 gm/cm2 which is 64% of that of young normals and 91% of that of age matched controls. ??This yields a T-score of -2.9 and a Z-score of -0.5 which is diagnostic of osteoporosis. ??The T-score of the right femoral neck is -3.3 and that of the left femoral neck is -3.5 which is diagnostic of osteoporosis. IMPRESSION: 1. Osteoporosis. 2. FRAX analysis yields a 10-year probability of major osteoporotic fracture of 30.2% and a 10-year probability of hip fracture of 16.5%. Code 42155 Dictating Physician: ??FRANCES SINGH MD Electronically Signed by: ??FRANCES SINGH MD Dic Date/Time: ??11/02/22 1124 Sign date/Time: ??11/02/22 1126 Procedure Note Frances Singh MD - 07/28/2023 [facility] Diagnostic Imaging Department [address] [place] [address] Patient: YOUNG MICHAELS /Age/Sex: 1940 - 82 - F Unit#: [id number] Location/Status: SPDIMA/REG CLI Mnemonic/Ordering Site: [facility] Ordering Physician: JAONIE SNIDER MD [facility] Dexa Axial Skeleton - 11/02/22 - 105 HISTORY: The patient is an 82-year-old postmenopausal female withclinical concern for metabolic bone disease. FINDINGS: Dual energy x-ray absorptiometry of the lumbar spine and femursis performed. The mean bone mineral density at L1-L4 is 0.868 gm/cm2 which is74% of that of young normals and 94% of that of age matched controls. Thisyields a T-score of -2.6 and a Z-score of -0.5 which is diagnostic ofosteoporosis. The mean bone mineral density of the femurs bilaterally is 0.647 gm/lq4dnqyd is 64% of that of young normals and 91% of that of age matched controls.This yields a T-score of -2.9 and a Z-score of -0.5 which is diagnostic of osteoporosis. The T-score of the right femoral neck is -3.3 and that ofthe left femoral neck is -3.5 which is diagnostic of osteoporosis. IMPRESSION: 1. Osteoporosis. 2. FRAX analysis yields a 10-year probability of major osteoporoticfracture of 30.2% and a 10-year probability of hip fracture of 16.5%. Code 64432 Dictating Physician: FRANCES SINGH MD Electronically Signed by: FRANCES SINGH MD Dic Date/Time: 11/02/22 1124 Sign date/Time: 11/02/22 1126 Joanie Snider MD IM BI PROCEDURES Final Result from Last 3 Months or Most Recently Relevant to Health Maintenance Insurance MEDICARE [place]ICA[place] Advance Directives Documents on File Type Date Recorded Patient Pairer Inspector Expl anation Advance Directives and Living Will 10/17/2024 10:20 AM Health Care Decision (hx) 05/20/2022 AD YEE DIRECTIVE Health Care Decision (hx) 10/06/2021 AD YEE DIRECTIVE Health Care Decision (hx) 09/22/2021 AD YEE DIRECTIVE Health Care Decision (hx) 09/20/2021 AD YEE DIRECTIVE Health Care Decision (hx) 05/03/2021 AD YEE DIRECTIVE Health Care Decision (hx) 05/03/2021 AD YEE DIRECTIVE Health Care Decision (hx) 05/03/2021 AD YEE DIRECTIVE Health Care Decision (hx) 05/03/2021 AD YEE DIRECTIVE Health Care Decision (hx) 05/03/2021 AD YEE DIRECTIVE Health Care Decision (hx) 05/03/2021 AD YEE DIRECTIVE Health Care Decision (hx) 05/03/2021 AD YEE DIRECTIVE Health Care Decision (hx) 05/03/2021 AD YEE DIRECTIVE Health Care Decision (hx) 05/03/2021 AD YEE DIRECTIVE Health Care Decision (hx) 05/03/2021 AD YEE DIRECTIVE Health Care Decision (hx) 05/03/2021 AD YEE DIRECTIVE Health Care Decision (hx) 05/03/2021 AD YEE DIRECTIVE Health Care Decision (hx) 05/03/2021 AD YEE DIRECTIVE Health Care Decision (hx) 05/03/2021 AD YEE DIRECTIVE Health Care Decision (hx) 05/03/2021 AD YEE DIRECTIVE Health Care Decision (hx) 05/03/2021 AD YEE DIRECTIVE Health Care Decision (hx) 05/03/2021 AD YEE DIRECTIVE Health Care Decision (hx) 05/03/2021 AD YEE DIRECTIVE Health Care Decision (hx) 05/03/2021 AD YEE DIRECTIVE Health Care Decision (hx) 05/03/2021 AD YEE DIRECTIVE Health Care Decision (hx) 05/03/2021 AD YEE DIRECTIVE Health Care Decision (hx) 05/03/2021 AD YEE DIRECTIVE Health Care Decision (hx) 05/03/2021 AD YEE DIRECTIVE Health Care Decision (hx) 05/03/2021 AD YEE DIRECTIVE Health Care Decision (hx) 05/03/2021 AD YEE DIRECTIVE Health Care Decision (hx) 05/03/2021 AD YEE DIRECTIVE Health Care Decision (hx) 05/03/2021 AD YEE DIRECTIVE Health Care Decision (hx) 05/03/2021 AD YEE DIRECTIVE Health Care Decision (hx) 05/03/2021 AD YEE DIRECTIVE Health Care Decision (hx) 05/03/2021 AD YEE DIRECTIVE Care Teams Natural Gas Engineer Relationship Specialty Start Date End Date Joanie Snider MD [address] [place] [id number] PCP - General Internal Medicine 06/14/24
== END 2024-11-14 13:56 | disposition home or self-care (01) ==
LOC: HO.HAP 13:55
PROVIDERS: Visit Provider Internal Medicine
DX: Z13.89 Encounter for screening for other disorder (principal)

== ENCOUNTER 2025-06-10 13:59 | Outpatient (REF) | payer MEDICARE, MEDICAID, SELFPAY ==
--- OUTSIDE RECORDS SUMMARY | 2024-12-12 06:00 | XMS_ITS ---
Author Organization [facility] Address [address] [place] [address] Care Team Providers Care Acid Mixer Name Role Phone JOANIE ROJAS Primary Care Provider REASON FOR VISIT 41/6 week follow up Encounters Encounter Location Date Provider Diagnosis [address] [address] 12/12/2024 JOANIE ROJAS Plan Of Treatment Next Appt Details Provider Name:JOANIE ROJAS , 06/16/2025 03:00:00 PM, [address] [place], [address], Progress Notes * YOUNG WHITE ADOB:[birth year] (84 yo F)Acc No.[id number]:12/12/2024 Progress Notes Patient: YOUNG CARDOZA Provider: Kaya ROJAS M.D. :1940 A ge:84 Y S ex:Female Date:12/12/2024 Address:[address], [address], [id number] Subjective: * Chief Complaints: * 4 1/6 week follow up Billing Information: * Procedure Codes: * Electronic signature of JOANIE ROJAS MD on 06/10/2025 at 06:08 PM EST Sign off status: Pending * Provider: Kaya ROJAS M.D. Date: 0 12/12/2024 Generated for Anibal knight/Sixto/Faith on: 1 08/11/2024 06:08 PM EST
--- NOTE | 2025-06-10 14:15 | MHC.AU.HA3 ---
Hearing Instrument Follow-Up- Binaural Date of Visit: 06/10/25 Right Ear: David, Model, Color, Serial Number: Rolanda Kay [id number] SN: [id number] Color: [place]al[place] Ict Business Analyst Repair Warranty: 05/28/2027 Ict Business Analyst Loss and Damage Warranty: 05/28/2027 [facility] Service Plan: 05/09/2025 Battery Size: 312 Commanding Officer Motorized Squad/Slim Tube: 2M Earmold/Dome/CShell/SlimTip:Canal lock c-shell SN: [id number] Warranty 08/26/2024 Type of Wax Guard: CeruStop Dispensed By: [facility] Date of Fittin05/09/2024 Left Ear: David, Model, Color, Serial Number: Rolanda Kay [id number] SN: [id number] Color: [place]alwood Ict Business Analyst Repair Warranty: 05/28/2027 Ict Business Analyst Loss and Damage Warranty: 05/28/2027 [facility] Service Plan: 05/09/2025 Battery Size: 312 Commanding Officer Motorized Squad/Slim Tube: 2M Earmold/Dome/CShell/SlimTip: Canal lock c-shell SN: [id number] Warranty 08/26/2024 Type of Wax Guard: Cerustop Dispensed By: [facility] Date of Fittin05/09/2024 Follow-Up Summary: Clean and check, noted some wax build up in wax guards. Cleaned HAs (2). Cleaned c-shells (2). Replaced wax guards (2). Vacuumed microphones. Ran through dehumidifier. Cleaned battery doors and contacts. Listening check demonstrated HAs amplifying clearly. Connected to [employer], no updates available. Per oZey, HAs otherwise working well. Recommendations: Hearing instrument follow-up or maintenance as needed. Please contact our clinic with any questions or concerns. Diagnosis Code(s): Primary Diagnosis: H90.3 Bilateral Sensorineural Hearing Loss Signature: Provider: Brigido Hu, [facility]
--- OUTSIDE RECORDS SUMMARY | 2025-06-10 18:08 | XMS_ITS | Clinical Summary ---
Author Organization [facility] Prior to 11/23/24 Address [address] [place] [address] Care Team Providers Care Finishing Area Supervisor Name Role Phone Moshe Snider MD Primary Care Provider Unavail able Allergies Active Allergy Reactions Criticality Noted Date Comments Meperidine 07/25/2018 Metformin 07/25/2018 Oxycodone-Acetaminophen 07/25/2018 Tramadol 07/28/2022 Medications Medication Sig Dispensed Refills Start Date End Date Status amiodarone (PACERONE) 200 MG tablet Take 1 tablet (200 mg total) by mouth daily. 0 Active dilTIAZem (TIAZAC) 360 MG 24 hr capsule Take 360 mg by mouth daily. 0 Active apixaban (ELIQUIS) 5 MG TABS tablet Take 1 tablet (5 mg total) by mouth every 12 (twelve) hours. 0 Active glipiZIDE (GLUCOTROL XL) ER 24 hr tablet 5 mg Take 1 tablet (5 mg total) by mouth daily. 0 Active furosemide (LASIX) 20 MG tablet Take 20 mg by mouth daily. 0 Active rosuvastatin (CRESTOR) tablet 5 mg Take 1 tablet (5 mg total) by mouth daily. 0 Active bumetanide (BUMEX) 0.5 MG tablet Take 1 tablet (0.5 mg total) by mouth daily. 0 Active PANTOPRAZOLE SODIUM PO Take 40 mg by mouth. 0 Active Dronedarone HCl (MULTAQ) 400 MG tablet Take 1 tablet (400 mg total) by mouth 2 (two) times a day with meals. 0 Active clopidogrel (PLAVIX) 75 MG tablet Take 1 tablet (75 mg total) by mouth daily. 0 Active aspirin EC 81 MG tablet Take 1 tablet (81 mg total) by mouth daily. 0 Active mirtazapine (REMERON) 7.5 MG tablet Take 1 tablet (7.5 mg total) by mouth every night at bedtime. 0 Active ferrous sulfate 325 (65 FE) MG tablet Take 1 tablet (325 mg total) by mouth every morning with breakfast. 0 Active Cholecalciferol (Vitamin D) 50 MCG (2000 UT) tablet Take 2,000 Units by mouth daily. 0 Active Potassium Chloride ER 20 MEQ TBCR Take by mouth. 0 Active SITagliptin (Januvia) 25 MG tablet Take 1 tablet (25 mg total) by mouth daily. 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 09/04/2018 Iron deficiency anemia due to chronic blood loss 07/25/2018 CLL (chronic lymphocytic leukemia) 07/25/2018 Family History Medical History Relation Name Comments Cancer Brother prostate Cancer Father lung Relation Name Status Comments Brother Father Social History Tobacco Use Types Packs/Day Years Used Date Smoking Tobacco: Never Smokeless Tobacco: Never Alcohol Use Standard Drinks/Week Comments Yes 0 (1 standard drink = 0.6 oz pur e alcohol) occasional Sex and Gender Information Value Date Recorded Sex Assigned at Female 01/20/2023 10:40 AM EDT Gender Identity Not on file Sexual Orientation Not on file Job Start Date Occupation Industry Not on file Not on file Not on file Last Filed Vital Signs Vital Sign Reading Time Taken Comments Blood Pressure 100/48 11/13/2023 1:44 PM EDT Pulse 74 11/13/2023 1:44 PM EDT Temperature 37 C (98.6 F) 11/13/2023 1:44 PM EDT Respiratory Rate 20 11/13/2023 1:44 PM EDT Oxygen Saturation 100% 11/13/2023 1:44 PM EDT Inhaled Oxygen Concentration - - Weight 52.7 kg (116 lb 3.2 oz) 10/18/2023 2:53 P M EDT Height 152.4 cm (5') 10/18/2023 2:53 PM EDT Body Mass Index 22.69 10/18/2023 2:53 PM EDT Plan of Treatment Health Maintenance Due Date Last Done Comments COVID-19 Vaccine (#1) 09[birth year]24/1945 Pneumococcal Vaccine (1 of 2 - PCV) 1944 Depression Screening 1950 Preventative Health Evaluation 1956 DTap / Tdap / Td (1 - Tdap) 1957 Shingrix-Zoster Vaccine (1 of 2) 1957 Fall Risk Assessment 09/24/2003 Osteoporosis Screening (DEXA Scan) 09/24/2003 RSV Adult > 60+ Yrs or Pregn ant (1 - 1-dose 75+ series) 2013 Influenza Vaccine (#1) 2025 Hepatitis B Vaccines Aged Out No long er eligible based on patient's age to complete this topic RSV Ped < 20 months Aged Out No longe r eligible based on patient's age to complete this topic Care Teams Finishing Area Supervisor Relationship Specialty Start Date End Date Moshe Snider MD PCP - General Internal Medicine 07/25/18
--- OUTSIDE RECORDS SUMMARY | 2025-06-10 18:08 | XMS_ITS ---
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 Has since been lower, but does correct higher given low albumin. Will call for more recent labs. She is getting a good amount of calcium via supplements. Will continue to monitor for now & if calcium remains improved over time & she is otherwise clinically stable, we can consider initiating rx with either zoledronic acid or denosumab. She is edentulous. Reiterated the importance of avoiding falls. Assessment & Plan (07/25/2024 2:22 PM EST): We had planned to initiate zoledronic acid, but had to hold due to low normal calcium & risk of hypocalcemia. Has since been lower, but corrects higher given low albumin. Will call for more recent labs. She is getting a good amount of calcium via supplements & consumes dairy regularly. Her last labs do look improved & it looks like she is stronger/less frail than she had been. Will continue to monitor for now & if calcium remains improved over time & she is otherwise clinically stable, we can consider initiating rx with either zoledronic acid or denosumab. She is edentulous. Did discuss the importance of avoiding falls. Assessment & Plan (01/05/2024 1:01 PM EDT): We had planned to initiate zoledronic acid, but had to hold due to low normal calcium & risk of hypocalcemia. Has since been lower, but corrects higher given low albumin. Will call for more recent labs. She is getting a good amount of calcium via supplements & consumes dairy regularly. She has also become much more frail. Will continue to monitor for now & if calcium is improved over time & she is otherwise clinically stable, we can initiate rx with either zoledronic acid or denosumab. She is edentulous. Did discuss the importance of avoiding falls as major component of fracture prevention & being consistent using walker which helps her avoid falls. Assessment & Plan (06/28/2023 3:27 PM EST): She is using a walker to help avoid falls. Unfortunately, we had to hold rx due to low normal calcium & risk of hypocalcemia, ? If related to underlying CKD. She is getting calcium supplements & consumes dairy regularly. Will continue to monitor for now & if calcium is improved over time & she is otherwise clinically stable, we can initiate rx with either zoledronic acid or denosumab. She is edentulous. Assessment & Plan (03/27/2023 8:37 AM EDT): She had blood work done with Dr Snider, as she was unable to have any blood work done with her urology office as we don't do bone densities . The blood work is in her chart from 12/25/22. Will have Dr Youngblood review this to then be able to determine what medications she can or cannot use to treat her osteoporosis. She would prefer to have a yearly infusion but is willing to do whatever Dr Youngblood thinks is best. Assessment & Plan (12/14/2022 5:19 PM EDT): Osteoporosis on bone density. Apparently had evidence of compression fx after fall on imaging @ [facility]. Getting reasonable intake of calcium via diet. She is edentulous. Will do labs. Will obtain records. ? Start zoledronic acid vs denosumab depending on results. Abnormal TSH 09/12/2022 Assessment & Plan (09/12/2022 3:48 PM EDT): Will order labs to check TSH levels to determine if any treatment is needed Type 2 diabetes mellitus with peripheral neuropa thy Assessment & Plan (03/21/2025 11:58 AM EDT): Control excellent. Continue to work on eating healthy & keeping active. To call or send in BG with problems with glycemic control. Up to date with [facility]. Follows w/ podiatry. Assessment & Plan (10/24/2024 1:31 PM EDT): Control is good based upon the patient's recall of her recent limited SMBG readings. She is not using any medications to cause hypoglycemia. Will maintain her regimen. Continue to working on eating healthy and being active. To call or message with any issues managing her glucose levels. Up to date with [facility]. Sees podiatry. Labs to be done soon with PCP Assessment & Plan (07/25/2024 2:20 PM EST): Control excellent. Continue to work on eating healthy & keeping active. To call or send in BG with problems with glycemic control. Up to date with [facility]. Follows w/ podiatry. Assessment & Plan (04/22/2024 10:11 PM EDT): Control is good based upon the patient's A1C of 5.2% and her SMBG readings. She is not using any medications to cause hypoglycemia. Will maintain her regimen. Continue to working on eating healthy and being active. To call or message with any issues managing her glucose levels. Up to date with ophtho. Sees podiatry. Assessment & Plan (01/05/2024 12:56 PM EDT): Control excellent. Continue to work on eating healthy & keeping active. To call or send in BG with problems with glycemic control. [facility] w/ [facility]ry. Foot & nail care good. Rx given for DM shoes. Assessment & Plan (10/12/2023 8:28 PM EDT): Control is good based upon the patient's recall of her last A1C of 5.6% and her SMBG readings. She is not using any medications to cause hypoglycemia. Will maintain her regimen. Continue to working on eating healthy and being active. To call or message with any issues managing her glucose levels. [facility] Se[facility]ry. Will get recent blood work from PCP Assessment & Plan (06/28/2023 3:25 PM EST): Control excellent. Continue to work on eating healthy & keeping active. To call or send in BG with problems with glycemic control. Up to date with [facility]. Assessment & Plan (03/27/2023 8:40 AM EDT): Control is good based upon the patient's recall of her last A1C of 7.1%. She is not using any medications to cause hypoglycemia. She has not been able to check her glucose levels due to her meter breaking. Will send a prescription for a new one. Will maintain her regimen. Continue to working on eating healthy and being active. To call or message with any issues managing her glucose levels. Up to date with [facility]. Sees podiatry. Assessment & Plan (12/14/2022 5:17 PM EDT): Control good based on HbA1c. Continue to work on eating healthy & keeping active as able. To call or send in BG with problems with glycemic control. Will do labs soon. To call if hasn't heard from us within 1-2 weeks. Up to date with [facility]. Foot & nail care good, sees podiatry. BP under reasonable control. Assessment & Plan (09/12/2022 3:50 PM EDT): Control is good based upon the patient's recall of her SMBG readings. She is not using any medications to cause hypoglycemia. Will maintain her regimen. Continue to work on eating healthy and being as active as she can tolerate. Up to date with ophtho. Sees podiatry and is scheduled to see in September. Lab orders given to do prior to next visit. Multinodular goiter Overview (06/28/2023): FNA 2012, benign, stable u/s 2017 Assessment & Plan (03/21/2025 11:58 AM EDT): Will continue to monitor exam.Would include TFTs with upcoming labs. Assessment & Plan (07/25/2024 2:20 PM EST): Will continue to monitor exam.Would include TFTs with upcoming labs. Assessment & Plan (01/05/2024 12:57 PM EDT): Euthyroid in December 2022. Exam stable. Will continue to monitor exam.Would include TFTs with upcoming labs. Assessment & Plan (06/28/2023 3:24 PM EST): Euthyroid in December. Will continue to monitor exam. Assessment & Plan (12/14/2022 5:15 PM EDT): Exam unrevealing today. Will check TFTs. Will obtain records. CLL (chronic lymphocytic leukemia) Anemia Atrial fibrillation GERD (gastroesophageal reflux disease) Hyperlipidemia Compression fracture of L2 Compression fracture of T12 vertebra Ataxia Essential hypertension Nephrolithiasis Current Treatment and Therapy Plans No current plan information found. Past Treatment and Therapy Plans
--- OUTSIDE RECORDS SUMMARY | 2025-06-10 18:08 | XMS_ITS | Clinical Summary ---
Author Organization [facility] Address [address] [place] [id number] Phone Care Team Providers Care Crossbar Frame Wirer Name Role Phone Moshe Snider MD Primary Care Provider [phone] Kvng Monaco MD Unavailable [phone] Eric Suh MD Unavailable [phone] Allergies Active Allergy Reactions Criticality Noted Date Comments Meperidine Hives 07/25/2018 Metformin Diarrhea 07/25/2018 Tramadol 07/28/2022 Medications bumetanide (BUMEX) 0.5 MG tablet Take 3 tablets by mouth daily. 3 Active pantoprazole (PROTONIX) 40 MG tablet Take 40 mg by mouth daily. 3 Active potassium chloride (K-TAB) 20 mEq TbER ER tablet Take 20 mEq by mouth. 3 Active rosuvastatin (CRESTOR) 5 MG tablet rosuvastatin 5 mg tablet Active JANUVIA 25 mg tablet Take 25 mg by mouth daily. 3 Active lancets (FREESTYLE) 28 gauge Misc FreeStyle Lancets 28 gauge Active cholecalcifero l (VITAMIN D3) 2,000 unit capsule Take 1 capsule by mouth daily. 2 Active FREESTYLE LITE METER meter kitIndications :Type 2 diabetes mellitus without complication, without long-term current use of insulin To test blood glucose. Dx E11.9 1 each 3 Active FREESTYLE 28 gauge lancetsIndicat ions:Type 2 diabetes mellitus without complication, without long-term current use of insulin 1 each by Miscellaneous route daily. Dx E11.9 100 each 3 3 Active calcium carbonate 1,250 mg (500 mg elemental) capsule Take 600 mg by mouth 2 (two) times a day with meals. Active aspirin 81 MG EC tablet Take 1 tablet by mouth every morning. 4 Active MULTAQ 400 mg tablet Take 400 mg by mouth 2 (two) times a day with meals. 4 Active ferrous sulfate 325 mg (65 mg qawalangin iron) tablet Take 1 tablet by mouth every morning. 4 Active mirtazapine (REMERON) 7.5 MG tablet Take 7.5 mg by mouth nightly at bedtime. 4 Active traZODone (DESYREL) 50 MG tablet Take 50 mg by mouth nightly at bedtime. 4 Active FREESTYLE LITE Strp stripsIndicati ons:Type 2 diabetes mellitus without complication, without long-term current use of insulin Use to test glucose once daily 100 strip 3 4 Active Active Problems Problem Noted Date Diagnosed Date [employer] current use of oral hypoglycemic drug 06/28/2023 [...] compression fx after fall on imaging @ [facility]. Getting reasonable intake of calcium via diet. [...] with glycemic control. Up to date with ophtho. Follows w/ podiatry. Assessment & Plan (10/24/2024 [...] with glycemic control. Up to date with ophtho. Follows w/ podiatry. Assessment & Plan (04/22/2024 [...] to date with opho. Follows w/ podiatry. Foot & nail care [...] Up to date with opho. Sees podiatry. Will get recent blood work from PCP Assessment & Plan (06/28/2023 3:25 PM EST): Control excellent. Continue to work on eating healthy & keeping active. To call or send in BG with problems with glycemic control. Up to date with opho. Assessment & Plan (03/27/2023 8:40 AM EDT): [...] Up to date with opho. Sees podiatry. Assessment & Plan (12/14/2022 5:17 PM EDT): Control good based on HbA1c. Continue to work on eating healthy & keeping active as able. To call or send in BG with problems with glycemic control. Will do labs soon. To call if hasn't heard from us within 1-2 weeks. Up to date with opho. Foot & nail care good, sees podiatry. [...] of T12 vertebra Ataxia Essential hypertension Nephrolithiasis Encounters Date Type Department Care Team Description 05/05/2025 Telephone [facility]ology [facility] [address] [place] [address] Conchis Crooks MA Labs 03/27/2025 Telephone [facility] Endocrinology [employer] [employer] [address] [place] [address] Conchis Crooks MA Forms & Paperwork (P&O solution) 03/24/2025 Telephone [facility] [address] [place] [address] Jessa Youngblood MD 03/24/2025 Telephone [facility] Pulmonology, Allergy and Critical Care Medicine [facility] [address] [place] [address] Ro Quiñones office notes 03/21/2025 12:00 PM EDT Office Visit [facility] Endocrinology [facility] [employer] [address] [place] [address] Jessa Youngblood MD Type 2 diabetes mellitus with peripheral neuropathy (Primary Dx); Multinodular goiter; Age-related osteoporosis without current pathological fracture; [facility] current use of oral hypoglycemic drug 03/21/2025 Telephone [facility] Endocrinology [facility] [address] [place] [address] Jessa Youngblood MD from Last 3 Months Social History Tobacco Use Types Packs/Day Years Used Date Smoking Tobacco: Never Smokeless Tobacco: Never Tobacco Cessation:Counseling Given: Not Answered Alcohol Use Standard Drinks/Week Comments Not Currently 0 (1 standard drink = 0.6 oz pur e alcohol) Education Answer Date Recorded Are you interested in more education? Not on tatyana e 10/22/2022 Are you concerned about learning? Not on file 10/22/2022 No 10/22/2022 No 10/22/2022 Digital Access Answer Date Recorded No 11/20/2022 No 11/20/2022 Reliable internet access at home? Not on file 11/20/2022 Device with a working camera? Not on file Comments Unknown Sex and Gender Information Value Date Recorded Sex Assigned at Not on file Legal Sex Female 4:06 PM EDT Gender Identity Not on file Sexual Orientation Not on file Last Filed Vital Signs Vital Sign Reading Time Taken Comments Blood Pressure 98/56 03/21/2025 11:46 AM EDT Pulse 82 03/21/2025 11:46 AM EDT Temperature - - Respiratory Rate - - Oxygen Saturation 99% 10/15/2024 11:10 AM EDT Inhaled Oxygen Concentration - - Weight 52.2 kg (115 lb) 03/21/2025 11:46 AM EDT Height 152.4 cm (5') 07/25/2024 1:52 PM EST Body Mass Index 22.46 07/25/2024 1:52 PM EST Plan of Treatment Upcoming Encounters Date Type Department Care Team (Late st Contact Info) Description 10/21/2025 12:30 PM EDT Office Visit [facility] Endocrinology [address] [place] [address] Harper Fall PA-C [address] [place] [phone] 03/25/2026 11:40 AM EDT Office Visit [facility] Endocrinology [address] [place] [address] Jessa Youngblood MD [address] [place] [phone] Health Maintenance Due Date Last Done Comments Adult Td,Tdap Booster 1940 DEPRESSION SCREENING 1950 PNEUMOCOCCAL VACCINES (50+ years) (1 of 2 - PCV) 1957 ZOSTER VACCINES (1 of 2) 1957 OSTEOPOROSIS SCREENING INITI AL (ONE-TIME) 09/24/2003 RSV VACCINE (1 - 1-dose 75+ series) 2013 DIABETIC EYE EXAM 09/13/2022 URINE MICROALBUMIN/CREATININ E RATIO 09/13/2022 POTASSIUM LEVEL 05/01/2024 05/01/2023, 09/12/2022 HEMOGLOBIN A1C 12/13/2024 06/14/2024 INFLUENZA VACCINE (#1) 2025 COVID-19 VACCINE (2024-2 6 season) 2025 HEPATITIS A VACCINES Aged Out No long er eligible based on patient's age to complete this topic HIB VACCINES Aged Out No longer eligi ble based on patient's age to complete this topic MENINGOCOCCAL VACCINES (ACWY) Aged Out No longer eligible based on patient's age to complete this topic MENINGOCOCCAL VACCINES (B) Aged Out N o longer eligible based on patient's age to complete this topic Medical Devices Not on file Procedures Procedure Name Priority Date/Time Associated Diagnosis Comments COMPREHENSIVE METABOLIC PANEL (CMP) Routine 05/01/2023 1:27 PM EST Age-related osteoporosis without current pathological fracture from Last 3 Months or Most Recently Relevant to Health Maintenance Results * (ABNORMAL) Comprehensive metabolic panel (05/01/2023 1:27 PM EST) SODIUM 141 133 - 146 mmol/L [facility] POTASSIUM 4.0 3.3 - 5.1 mmol/L [facility] CHLORIDE 103 96 - 108 mmol/L [facility] CO2 27 21 - 35 mmol/L [facility] BUN 25(H) 6 - 19 mg/dL [facility] CREATININE 1.10 0.5 - 1.5 mg/dL [facility] GLUCOSE 121(H) 70 - 99 mg/dL [facility] ALBUMIN 4.0 3.9 - 4.8 g/dL [facility] TOTAL PROTEIN 5.9(L) 6.5 - 8.0 g/dL [facility] CALCIUM 8.5 8.4 - 10.3 mg/dL [facility] ALKALINE PHOSPHATASE 128(H) 39 - 117 U/L [facility] TOTAL BILIRUBIN 0.5 0.0 - 1.2 mg/dL [facility] AST 21 0 - 37 U/L [facility] ALT 14 0 - 40 U/L [facility] GLOBULIN 1.9 1 - 4.8 g/dL [facility] EGFR 50(L) >59 mL/min/1.7 3m2 [facility] Comment:Estimated glomerular filtration rate calculated using the CKD-EPI refit equation. ANION GAP 15 10 - 20 mmol/L [facility] Blood 05/01/2023 1:27 PM EST 05/01/2023 1:34 PM EST us Jessa Youngblood MD LAB BLOOD BKR ORDERABL ES Final Result [address] [id number] from Last 3 Months or Most Recently Relevant to Health Maintenance Insurance [place] & [place] & B Care Teams Crossbar Frame Wirer Relationship Specialty Start Date End Date Moshe Snider MD [address] [place] [phone] PCP - General Internal Medicine 11/27/23 Kvng Monaco MD [address] [facility] [address] [place] [address] Cardiology 04/16/24 Eric Suh MD 100 [facility] [address] [place] [address] Urology 04/16/24 Additional Source Comments The information contained in this document represents components of the legal health record. It is not the complete legal health record.[facility]
--- OUTSIDE RECORDS SUMMARY | 2025-06-10 18:09 | XMS_ITS | Clinical Summary ---
Author Organization [facility] Address [address] [place] [address] Phone Care Team Providers Care Chart Collector Name Role Phone Joanie Rojas MD Primary Care Provider [phone] Allergies Active Allergy Reactions Criticality Noted Date Comments Meperidine Itching Medium 07/25/2018 Metformin Itching Medium 07/25/2018 Medications POTASSIUM CHLORIDE ORAL Take 20 [...] by mouth 2 (two) times a day. 10/06/19 24 Active ferrous sulfate 325 mg (65 mg elemental iron) tablet Take 1 tablet (325 mg total) by mouth every morning with breakfast. Active rosuvastatin (CRESTOR) 5 mg tablet Take 1 tablet (5 mg total) by mouth 1 (one) time each day. Active SITagliptin phosphate (Januvia) 25 mg tablet Take 1 tablet (25 mg total) by mouth 1 (one) time each day. Active traZODone (DESYREL) 50 mg tablet Take 1 tablet (50 mg total) by mouth at bedtime. Active mirtazapine (REMERON) 7.5 mg tablet Take 1 tablet (7.5 mg total) by mouth at bedtime. Active ondansetron ODT (ZOFRAN-ODT) 4 mg disintegrating tabletIndications: Incarcerated paraesophageal hernia Dissolve 1 tablet (4 mg total) on top of the tongue every 8 (eight) hours if needed for vomiting or nausea. 30 tablet 02/06/20 25 Active Additional Information Patient not taking.Reported on 05/29/2025 metoclopramide (REGLAN) 10 mg tablet Take 1 tablet (10 mg total) by mouth 3 (three) times a day with meals. Hold for diarrhea. 90 each 02/06/20 25 026 Active Additional Information Patient not taking.Reported on 05/29/2025 Active Problems Problem Noted Date Diagnosed Date Tachycardia 02/26/2025 Hiatal hernia 02/04/2025 Assessment & Plan (02/20/2025 2:57 PM EDT): On 02/04/2025 she underwent a da Hali/laparoscopic paraesophageal hernia repair with hybrid mesh and gastropexy. Over the past 2 weeks she has been enjoying a full liquid diet well with no concerning signs or symptoms. She was advanced to a mechanical soft diet today and advised to continue to abstain from carbonated beverages or straws and will follow-up in the thoracic surgery [facility] office in 2 weeks with a barium swallow study and further assessment of her diet. 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 White is an 84 year old female who had a robotic laparoscopic paraesophageal hernia repair with hybrid mesh and gastropexy on February 04, 2025. She has been tolerating a mechanical soft diet and liquids without any difficulty. Barium swallow study today shows no evidence of contrast extravasation or obstruction. At this point in time she may resume a regular diet without restrictions. I did educate her, however, to take it slow as she introduces more solid foods to ensure she is tolerating these. She does states she has been having some bloody streaks bowel movements of which she is following up with her primary care physician about next week. She has no signs or symptoms of blood loss anemia at this time and is hemodynamically stable. She has no abdominal complaints also. Patient may follow-up with us on an as-needed basis going forward. She should continue ongoing routine medical care with her primary care physician and other specialists. She is told that she may call us should she have any questions or concerns in the future. 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 09/04/2018 Complete tear of right rotator cuff 09/04/2018 CLL (chronic lymphocytic leukemia) 07/25/2018 Iron deficiency anemia due to chronic blood loss 07/25/2018 Atrial fibrillation Overview (10/08/2024): DX:Atrial fibrillation (HCC) GERD (gastroesophageal reflux disease) Overview (10/08/2024): DX:GERD (gastroesophageal reflux disease) Hypertension Overview (10/08/2024): DX:Hypertension KATHLEEN on CPAP Vocal cord paralysis Overview (10/08/2024): DX:Vocal cord paralysis Mitral valve disease Encounters Date Type Department Care Team Description 05/29/2025 10:05 AM EST - 05/29/2025 11:59 PM EST Hospital Encounter [facility] [address] [place] [phone] CLL (chronic lymphocytic leukemia) (CMS/HCC V24, CMS/HCC V28) (Primary Dx) Discharge Disposition: Home or Self Care 05/28/2025 2:45 PM EST Lab Draw Station - [address] [phone] Iron deficiency anemia due to chronic blood loss 05/28/2025 2:15 PM EST Office Visit [facility] Hematology Oncology [address] [place] [phone] Rubens Al MD CLL (chronic lymphocytic leukemia) ([facility] [place] [facility] V28) (Primary Dx); Iron deficiency anemia due to chronic blood loss; Weight loss 05/21/2025 2:00 PM EST Lab Draw Station - [address] [facility] [address] [place] [phone] CLL (chronic lymphocytic leukemia) ([facility] [place], [facility] V28); Iron deficiency anemia due to chronic blood loss 05/08/2025 11:04 AM EST - 05/08/2025 11:59 PM EST Hospital [facility]counter [facility] [address] [phone] Encounter for screening mammogram for malignant neoplasm of breast Discharge Disposition: Home or Self Care from Last 3 Months Surgical History Surgery Date Site/Laterality Comments HYSTERECTOMY PROCEDURE:HYSTERECTOMY APPENDECTOMY PROCEDURE:APPENDECTOMY KNEE ARTHROSCOPY PROCEDURE: [place] ARTHROSCOPY AID [place] SPINE&/FX KNEE W/O FIXJ; COMMENT: Multiple knee arthroscopic surgeries OTHER SURGICAL HISTORY PROCEDURE: HISTORY OTHER; COMMENT: Bunionectomy TONSILLECTOMY PROCEDURE: HISTORICAL TONSILLECTOMY ADENOIDECTOMY PROCEDURE: HISTORICAL ADENOIDECTOMY WATCHMAN IMPLANT PARAESOPHAGEAL HERNIA REPAIR 02/04/2025 paraesophageal hernia repair with gastropexy Medical History Medical History Date Comments Iron deficiency anemia, unspecified DX:Iron deficiency anemia, unspecified Hypertension DX:Hypertension Diabetes mellitus ([facility] V [place], [facility] V28) DX:Diabetes mellitus (HCC) Atrial fibrillation ([facility] [place], [facility] V28) DX:Atrial fibrillation (HCC) Vocal cord paralysis DX:Vocal co rd paralysis URTI (acute upper respirator y infection) DX:URTI (acute upper respira tory infection) Leukocytosis DX:Leukocytosis GERD (gastroesophageal reflux disease) DX:GERD (gastroesophageal reflux disease) CAP (community acquired pneumonia) DX:CAP (community acquired pneumonia) KATHLEEN on CPAP Pulmonary hypertension ([facility] V24, [facility] [place]) Mitral valve disease Paraesophageal hernia 02/04/2025 Family History Medical History Relation Name Comments [...] drink = 0.6 oz pur e alcohol) RARE Housing Instability Answer Date Recorde d Are you worried that in the next 2 months you may not have stable housing? No 02/04/2025 Food Access & Nutrition Answer Date Rec orded Do you have access to a vari ety of food including fruits and vegetables? Yes 02/04/2025 Health Literacy Answer Date Recorded How often do you need to hav e someone help you when you read instructions, pamphlets, or other written material from your doctor or pharmacy? Never 02/04/2025 Caregiver: How often do you need to have someone help you when you read instructions, pamphlets, or other written material from your doctor or pharmacy? Not on file 02/04/2025 Financial Risk Answer Date Recorded How hard is it for you to pa y for the very basics like food, housing, medical care, and air conditioning / heating? Not very hard 02/04/2025 Transportation Answer Date Recorded Has the lack of transportati on kept you from meetings, work, or from getting things needed for daily living? No Has the lack of transportati on kept you from medical appointments or from getting medications? No 02/04/2025 Social Isolation Answer Date Recorded How often do you feel lonely or isolated from th ose around you? Rarely 02/04/2025 Food Risk Answer Date Recorded Within the past 12 months we worried whether our food would run out before we got money to buy more. Never true 02/04/2025 Within the past 12 months th e food we bought just didn't last and we didn't have money to get more. Never true 02/04/2025 Dependent Care Answer Date Recorded Do you need help finding or paying for care for your loved ones. For example, early childhood special educator or elderly care for an older adult? No 02/04/2025 Education Answer Date Recorded Do you think completing more education or training, like finishing a GED, going to college, or learning a trade, would be helpful for you? No 02/04/2025 Employment and Income Answer Date Recor ded During the last four weeks, have you been actively looking for work? No 02/04/2025 Living Situation Answer Date Recorded What is your living situation? Unrecognized valu e 02/04/2025 Interpersonal Safety Answer Date Record ed Physical Abuse Unrecognized value 02/04/2025 Verbal Abuse Unrecognized value 02/04/2025 Comments No Sex and Gender Information Value Date Recorded Sex Assigned at Female 09/02/2024 9:37 AM EDT Legal Sex Female 11:56 PM EST Gender Identity Female 09/02/2024 9:37 AM EDT Sexual Orientation Straight 09/02/2024 9: 37 AM EDT Last Filed Vital Signs Vital Sign Reading Time Taken Comments Blood Pressure 99/52 05/29/2025 1:45 PM EST Pulse 72 05/29/2025 1:45 PM EST Temperature 37.2 C (99 F) 05/29/2025 1:45 PM EST Respiratory Rate 20 05/29/2025 1:45 PM EST Oxygen Saturation 100% 05/29/2025 10:17 AM EST Inhaled Oxygen Concentration - - Weight 49 kg (108 lb) 05/28/2025 2:23 PM EST Height 149.9 cm (4' 11 ) 05/28/2025 2:23 PM EST Body Mass Index 21.81 05/28/2025 2:23 PM EST Plan of Treatment Upcoming Encounters Date Type Department Care Team (Late st Contact Info) Description 07/02/2025 3:00 PM EST Office Visit [facility] Hematology Oncology [address] [place] [phone] Rubens Bradley MD [address] [place] [phone] 09/08/2025 1:10 PM EDT Office Visit [facility] [address] [facility] [address] [place] [phone] Lacy Shah PA [address] [place] [address] [place] [phone] 11/24/2025 2:40 PM EDT Office Visit Gastroenterology - [address] [facility] [address] [place] [phone] Nova Paul, WALTER [address] [facility] [address] [place] [address] Health Maintenance Due Date Last Done Comments Diabetes: Annual Foot Exam 1950 Diabetes: Annual Retina Eye Exam 1950 Medicare Annual Wellness Visit 05/29/2022 Depression Screening 06/26/2024 Diabetes: Blood Sugar Control Test (HGBA1C) 12/13/2024 06/14/2024 COVID-19 Vaccine (10 - Pfizer risk season) 2025 03/10/2025, 12/05/2024, 04/08/2024, Additional history exists Social Influencers of Health Screening 02/04/2026 02/04/2025 Hypertension/CHF/CAD Annual BMP Blood Test 05/21/2026 05/21/2025, 02/05/2025, 01/27/2025, Additional history exists Falls Risk Assessment 05/29/2026 05/29/2025 Cholesterol Screening (Lipid Panel) 06/14/2029 06/14/2024 Osteoporosis Screening (Bone Density Screening) 11/02/2032 11/02/2022 DTaP,Tdap,and Td Vaccines (2 - Td or Tdap) 08/20/2034 08/20/2024 Zoster Vaccines Completed 07/15/2019, 04/27, 06/10/2013 RSV Immunization Adult Patients Completed 03/29/2024, 08/04/2023 Pneumococcal Vaccine: 50+ Years Completed 12/05/2024, 01/09/2017, 07/29/2013 Influenza Vaccine Completed 03/10/2025, , 03/21/2023, Additional history exists HIB Vaccines Aged Out [...] age to complete this topic Medical Devices Implanted Type Area Call Center Trainer Device Identifier Shelf Expiration Date Model / Serial / Lot Sealant Fibrin Vistaseal 10ml - [id number] - [id number] Implanted:Qty: 1 on 02/04/2025 by Janeen Carver MD at [facility] Hemostasis N/A: Esophagus [employer] 07/21/2026 [id number] / [id number] / [id number] Mesh Surg [place] 12cm Knit Film [employer] [facility] - [id number] - [id number] Implanted:Qty: 1 on 02/04/2025 by Janeen Carver MD at [facility] Surgical Mesh Sling Implants N/A: Esophagus [employer] 01/20/2027 [id number] / [id number] / N/A Procedures Procedure Name Priority Date/Time Associated Diagnosis Comments TRANSFUSE RED BLOOD CELLS Routine 05/29/2025 11:20 AM EST CLL (chronic lymphocytic leukemia) ([facility] [place] [facility] [place]) PREPARE RBC Routine 05/29/2025 10:30 AM EST CLL (chronic lymphocytic leukemia) ([facility] [place], [facility] V28) TYPE AND SCREEN Routine 05/28/2025 2:42 PM EST Iron deficiency anemia due to chronic blood loss MANUAL DIFFERENTIAL - SYSMEX WAM Routine 05/21/2025 2:16 PM EST CLL (chronic lymphocytic leukemia) ([facility] [place], [facility] V28) CBC WITH AUTO DIFFERENTIAL Routine 05/21/2025 2:16 PM EST CLL (chronic lymphocytic leukemia) ([facility] [place], [facility] V28) IRON AND TIBC Routine 05/21/2025 2:16 PM EST Iron deficiency anemia due to chronic blood loss FERRITIN Routine 05/21/2025 2:16 PM EST Iron deficiency anemia due to chronic blood loss VITAMIN B12 AND FOLATE Routine 2:16 PM EST Iron deficiency anemia due to chronic blood loss IMMUNOGLOBULIN IGG Routine 05/21/2025 2: 16 PM EST CLL (chronic lymphocytic leukemia) ([facility] V24, [facility] V28) LACTATE DEHYDROGENASE Routine 05/21/2025 2:16 PM EST CLL (chronic lymphocytic leukemia) ([facility] V24, [facility] V28) COMPREHENSIVE METABOLIC PANEL Routine 05/21/2025 2:16 PM EST CLL (chronic lymphocytic leukemia) ([facility] V24, [facility] V28) CBC AND DIFFERENTIAL Routine 05/21/2025 2:16 PM EST CLL (chronic lymphocytic leukemia) ([facility] V24, [facility] V28) MG MAMMO DIGITAL SCREENING W AG BILAT Routine 05/08/2025 11:20 AM EST Encounter for screening mammogram for malignant neoplasm of breast EXTERNAL CLINICAL LAB Routine 04/15/2025 9:01 AM EDT LIPID PANEL WITH REFLEX TO DIRECT LDL Routine 06/14/2024 11:22 AM EST Diabetes mellitus ([facility] V24, [facility] V28) Mixed hyperlipidemia Vitamin D deficiency disease HEMOGLOBIN A1C Routine 06/14/2024 11:21 AM EST Diabetes mellitus ([facility] V24, [facility] V28) Mixed hyperlipidemia Vitamin D deficiency disease [facility] DEXA AXIAL SKELETON Routine 11/02/2022 11:26 AM EDT Encounter for screening for osteoporosis from Last 3 Months or Most Recently Relevant to Health Maintenance Results * Transfuse RBC (05/29/2025 1:53 PM EST) Rubens Bradley MD BLOOD TRANSFUSION O RDERABLES Final Result * Prepare RBC: 1 Units (05/29/2025 10:30 AM EST) Product Code [id number] 05/29/2025 11:21 AM EST [facility] Unit Number [id number] 05/29/20 11:21 AM EST [facility] Crossmatch Compatible 05/29/2025 10:32 AM EST [facility] Dispense Status Transfused 05/29/2025 11:21 AM [facility] Unit ABO Rh OPOS 05/29/2025 11:21 AM [facility] Unit Expiration Date Time [id number] 05/29/2025 11:21 AM [facility] Unit Blood Type 5100 05/29/2025 11:21 AM [facility] Blood Venous blood specimen / Unknown 05/29/2025 10:30 AM EST 05/28/2025 4:31 PM EST Rubens Bradley MD BLOOD BANK PRODUCT ORDERABLES Final Result [facility] [address] [place] [address], * Type and screen (05/28/2025 2:42 PM EST) ABO Group O 05/28/2025 5:38 PM EST [facility] Rh Type Positive 05/28/2025 5:38 PM EST [facility] Antibody Screen Negative 05/28/2025 5:38 PM EST [facility] Blood Venous blood specimen / Unknown Venipuncture / Unknown 05/28/2025 2:42 PM EST 05/28/2025 4:31 PM EST Rubens Bradley MD LAB BLOOD BANK TEST ORDERABLES Final Result Performing Organization Address [facility] Co de Phone Number [facility] [address] [place] [address], * Vitamin B12 and folate (05/21/2025 2:16 PM EST) Pathologist [facility] Vitamin B-12 379 211 - 911 pcg/mL 05/21/2025 4:50 PM EST [facility] Folate 11.8 >=5.4 ng/ml 05/21/2025 4:50 PM EST [facility] Comment:Over the counter sup plements containing high doses of biotin may interfere with this assay. If interference is suspected, patients shoud be retested after refraining from biotin supplements for 72 hours. Blood Venous blood specimen / Unknown Venipuncture / Unknown 05/21/2025 2:16 PM EST 05/21/2025 3:58 PM EST us Rubens Bradley MD LAB BLOOD ORDERABLE S Final Result Performing Organization Address [facility]/ZIP Co de Phone Number [facility] [address] [place] [address], * (ABNORMAL) Manual differential (05/21/2025 2:16 PM EST) Pathologist [facility] Neutrophils % 8.0 % LAB HEMETOLOGY METHOD 05/21/2025 5:43 PM EST [facility] Lymphocytes % 90.0 % LAB HEMETOLOGY METHOD 05/21/2025 5:43 PM EST [facility] Monocytes % 1.0 % LAB HEMETOLOGY METHOD 05/21/2025 5:43 PM [facility] Eosinophils % 0.0 % LAB HEMETOLOGY METHOD 05/21/2025 5:43 PM [facility] Basophils % 1.0 % LAB HEMETOLOGY METHOD 05/21/2025 5:43 PM [facility] Neutrophils Absolute Manual 11.23(H) 1.50 - 7.00 K/mcL LAB HEMETOLOGY METHOD 05/21/2025 5:43 PM EST [facility] Lymphocytes Absolute 126.36(H) 1.00 - 5.00 K/mcL LAB HEMETOLOGY METHOD 05/21/2025 5:43 PM [facility] Monocytes Absolute Manual 1.40(H) 0.20 - 1.00 K/mcL LAB HEMETOLOGY METHOD 05/21/2025 5:43 PM [facility] Eosinophils Absolute Manual 0.00 0.00 - 0.50 K/mcL LAB HEMETOLOGY METHOD 05/21/2025 5:43 PM EST [facility] Basophils Absolute Manual 1.40(H) 0.00 - 0.20 K/mcL LAB HEMETOLOGY METHOD 05/21/2025 5:43 PM [facility] Rbc Morphology Consistent with indices Consistent with indices, Normal for [place] LAB HEMETOLOGY METHOD 05/21/2025 5:43 PM [facility] Platelet Morphology - WAM Normal Normal LAB HEMETOLOGY METHOD 05/21/2025 5:43 PM [facility] Blood Venous blood specimen / Unknown Venipuncture / Unknown 05/21/2025 2:16 PM EST 05/21/2025 4:00 PM EST us Rubens Bradley MD LAB BLOOD ORDERABLE S Final Result [facility] [address] [place] [address], * (ABNORMAL) CBC auto differential (05/21/2025 2:16 PM EST) [facility] WBC 140.4(HH) 4.8 - 10.8 K/mcL LAB HEMETOLOGY METHOD 05/21/2025 5:48 PM [facility] RBC 2.90(L) 3.80 - 4.80 M/mcL LAB HEMETOLOGY METHOD 05/21/2025 5:48 PM [facility] Hemoglobin 7.8(L) 11.5 - 16.0 g/dL LAB HEMETOLOGY METHOD 05/21/2025 5:48 PM [facility] Hematocrit 27.4(L) 35.0 - 47.0 % LAB HEMETOLOGY METHOD 05/21/2025 5:48 PM [facility] MCV 95.1 79.0 - 98.0 FL LAB HEMETOLOGY METHOD 05/21/2025 5:48 PM [facility] MCH 27.1 27.0 - 32.0 pcg LAB HEMETOLOGY METHOD 05/21/2025 5:48 PM [facility] MCHC 28.5(L) 32.0 - 37.0 g/dL LAB HEMETOLOGY METHOD 05/21/2025 5:48 PM [facility] RDW 14.7 11.0 - 15.0 % LAB HEMETOLOGY METHOD 05/21/2025 5:48 PM [facility] Platelets 193 130 - 400 K/mcL LAB HEMETOLOGY METHOD 05/21/2025 5:48 PM [facility] MPV 8.4 7.0 - 11.0 FL LAB HEMETOLOGY METHOD 05/21/2025 5:48 PM [facility] NRBC 0.0 <1.0 % LAB HEMETOLOGY METHOD 05/21/2025 5:48 PM [facility] NRBC Absolute 0.02 <0.10 K/mcL LAB HEMETOLOGY METHOD 05/21/2025 5:48 PM EST [facility] Blood Venous blood specimen / Unknown Venipuncture / Unknown 05/21/2025 2:16 PM EST 05/21/2025 4:00 PM EST Narrative [facility] - 05/21/2025 5:48 PM EST [id number] Rubens Bradley MD LAB BLOOD ORDERABLE S Final Result [facility] [address] [place] [address], * (ABNORMAL) Iron and TIBC (05/21/2025 2:16 PM EST) Iron 33(L) 40 - 150 mcg/dL 05/21/2025 4:55 PM EST [facility] TIBC 236(L) 250 - 450 mcg/dL 05/21/2025 4:55 PM EST [facility] Iron Saturation 14(L) 15 - 50 % 4:55 PM EST [facility] Blood Venous blood specimen / Unknown Venipuncture / Unknown 05/21/2025 2:16 PM EST 05/21/2025 3:58 PM EST Rubens Bradley MD LAB BLOOD ORDERABLE S Final Result [facility] [address] [place] [address], [place] [phone] * Lactate dehydrogenase (05/21/2025 2:16 PM EST) LDH 138 120 - 246 unit/L 05/21/2025 4:55 PM EST [facility] Blood Venous blood specimen / Unknown Venipuncture / Unknown 05/21/2025 2:16 PM EST 05/21/2025 3:58 PM EST us Rubens Bradley MD LAB BLOOD ORDERABLE S Final Result Performing Organization Address [facility]/ZIP Co de Phone Number [facility] [address] [place] [address], [place] [phone] * (ABNORMAL) Immunoglobulin IgG (05/21/2025 2:16 PM EST) [facility] Total IgG 461(L) 549 - 1,584 mg/dL 05/21/2025 4:55 PM EST [facility] Blood Venous blood specimen / Unknown Venipuncture / Unknown 05/21/2025 2:16 PM EST 05/21/2025 3:58 PM EST us Rubens Bradley MD LAB BLOOD ORDERABLE S Final Result Performing Organization Address [facility]/ZIP Co de Phone Number [facility] [address] [place] [address], [place] [phone] * Ferritin (05/21/2025 2:16 PM EST) [facility] Ferritin 74 7 - 271 ng/mL 05/21/2025 4:49 PM EST [facility] Blood Venous blood specimen / Unknown Venipuncture / Unknown 05/21/2025 2:16 PM EST 05/21/2025 3:58 PM EST us Rubens Bradley MD LAB BLOOD ORDERABLE S Final Result Performing Organization Address City/[facility]/ZIP Co de Phone Number [facility] [address] [place] [address], [place] [phone] * (ABNORMAL) Comprehensive metabolic panel (05/21/2025 2:16 PM EST) [facility] Sodium 139 133 - 145 mmol/L 05/21/2025 4:55 PM [facility] Potassium 4.1 3.5 - 5.5 mmol/L 05/21/2025 4:55 PM [facility] Chloride 98 96 - 110 mmol/L 05/21/2025 4:55 PM [facility] CO2 29 21 - 32 mmol/L 05/21/2025 4:55 PM [facility] Anion Gap 12(H) 3 - 11 05/21/2025 4:55 PM [facility] Glucose 154(H) 70 - 100 mg/dL 05/21/2025 4:55 PM [facility] BUN 30(H) 5 - 25 mg/dL 05/21/2025 4:55 PM [facility] Creatinine 1.53(H) 0.50 - 1.10 mg/dL 05/21/2025 4:55 PM [facility] eGFR 33(L) >=60 mL/min/1. 73m2 05/21/2025 4:55 PM [facility] Comment:Calculation based on the Chronic Kidney Disease Epidemiology Collaboration (CKD-EPI) equation refit without adjustment for race. BUN/Creatinine Ratio 19.6 05/21/2025 4:55 PM [facility] Calcium 7.6(L) 8.5 - 10.5 mg/dL 05/21/2025 4:55 PM [facility] AST (SGOT) 24 10 - 42 unit/L 05/21/2025 4:55 PM [facility] ALT (SGPT) 15 10 - 60 unit/L 05/21/2025 4:55 PM [facility] Alkaline Phosphatase 129(H) 42 - 121 unit/L 05/21/2025 4:55 PM [facility] Total Protein 5.1(L) 6.0 - 8.0 g/dL 05/21/2025 4:55 PM EST [facility] Albumin 3.0(L) 3.2 - 5.0 g/dL 05/21/2025 4:55 PM EST [facility] Total Bilirubin 0.4 0.0 - 1.4 mg/dL 05/21/2025 4:55 PM EST [facility] Blood Venous blood specimen / Unknown Venipuncture / Unknown 05/21/2025 2:16 PM EST 05/21/2025 3:58 PM EST Subramony Kirk [facility]ERNAN[facility] LAB BLOOD ORDERABLE S Final Result [facility] [address] [place] [address], * MG Mammo Digital Screening w Ag bilat (05/08/2025 11:20 AM EST) Anatomical Region Laterality Modality Breast Bilateral Mammography 05/08/2025 11:2 9 AM EST Impressions 05/08/2025 11:34 AM EST No mammographic evidence of malignancy. No suspicious interval change. A negative mammogram in the presence of a clinically suspicious palpable abnormality does not preclude the possibility of malignancy or alter the indications for biopsy. ASSESSMENT: BI-RADS 1: NEGATIVE RECOMMENDATION(S): 1: Routine screening mammogram BILATERAL in 1 year. [facility] location: [facility] [address] [place], [address] -------- FINAL REPORT -------- Dictated By: Braydon Romero Dictated Date: 05/08/2025 11:29 ET Assigned Physician: Braydon Romero Reviewed and Electronically Signed By: Braydon Romero Signed Date: 05/08/2025 11:34 ET Workstation ID: [id number] Transcribed By: Self Edit Transcribed Date: 05/08/2025 11:29 ET Narrative 05/08/2025 11:34 AM EST EXAM: SCREENING MAMMOGRAPHY, BILATERAL HISTORY: SCREENING. No additional history. COMPARISON: 05/06/24, 05/03/23, 04/27/22 TECHNIQUE: Synthesized CC and MLO projections of each breast. Tomosynthesis of each breast in the CC and MLO projections. ADDITIONAL IMAGING: None Computer-aided detection was employed with the iCAD [employer] AI 3-D. TISSUE DENSITY: There are scattered areas of fibroglandular density. (BI-RADS category B) FINDINGS: RIGHT BREAST: No suspicious mass. No suspicious calcification. No distortion. No additional suspicious right breast findings LEFT BREAST: No suspicious mass. No suspicious calcification. No distortion. No additional suspicious left breast findings Procedure Note Braydon Romero MD - 05/08/2025 EXAM: SCREENING MAMMOGRAPHY, BILATERAL HISTORY: SCREENING. No additional history. COMPARISON: 05/06/24, 05/03/23, 04/27/22 TECHNIQUE: Synthesized CC and MLO projections of each breast.Tomosynthesis of each breast in the CC and MLO projections. ADDITIONAL IMAGING: None Computer-aided detection was employed with the iCAD [employer] AI 3-D. TISSUE DENSITY: There are scattered areas of fibroglandular density.(BI-RADS category B) FINDINGS: RIGHT BREAST: No suspicious mass. No suspicious calcification. No distortion. Noadditional suspicious right breast findings LEFT BREAST: No suspicious mass. No suspicious calcification. No distortion. Noadditional suspicious left breast findings IMPRESSION: No mammographic evidence of malignancy. No suspicious interval change. A negative mammogram in the presence of a clinically suspicious palpableabnormality does not preclude the possibility of malignancy or alter theindications for biopsy. ASSESSMENT: BI-RADS 1: NEGATIVE RECOMMENDATION(S): 1: Routine screening mammogram BILATERAL in 1 year. [facility]amm[facility] location: [facility] [address], [address] -------- FINAL REPORT -------- Dictated By: Braydon Romero Dictated Date: 05/08/2025 11:29 ET Assigned Physician: Braydon Romero Reviewed and Electronically Signed By: Braydon Romero Signed Date: 05/08/2025 11:34 ET Workstation ID: [id number] Transcribed By: Self Edit Transcribed Date: 05/08/2025 11:29 ET Joanie Rojas MD IMG BI PROCEDURES Final Result * External clinical lab (04/15/2025 9:01 AM EDT) us [facility] Provider LAB BLOOD ORDERABLES Edit ed Result - Final * Lipid panel with reflex to direct LDL (06/14/2024 11:22 AM EST) Pathologist [facility] Cholesterol 83 0 - 200 mg/dL LAB CHEMISTRY METHOD 06/14/2024 2:29 PM EST [facility] Triglycerides 60 0 - 150 mg/dL LAB CHEMISTRY METHOD 06/14/2024 2:29 PM EST [facility] HDL 53 >=40 mg/dL LAB CHEMISTRY METHOD 06/14/2024 2:29 PM EST [facility] LDL Calculated 18 0 - 100 mg/dL LAB CHEMISTRY METHOD 06/14/2024 2:29 PM EST [facility] VLDL Cholesterol Jose Armando 12 mg/dL LAB CHEMISTRY METHOD 06/14/2024 2:29 PM EST [facility] Non HDL Chol. (LDL+VLDL) 30 <145 mg/dL LAB CHEMISTRY METHOD 06/14/2024 2:29 PM EST [facility] Chol/HDL Ratio 1.6 0.0 - 4.4 LAB CHEMISTRY METHOD 06/14/2024 2:29 PM EST [facility] Blood Venous blood specimen / Unknown Venipuncture / Unknown 06/14/2024 11:22 AM EST 06/14/2024 12:31 PM EST Joanie Rojas MD LAB BLOOD ORDERABLES Final Res ult [facility] [address] [place] [address], * Hemoglobin A1c (06/14/2024 11:21 AM EST) Hemoglobin A1C 5.9 <6.5 % LAB CHEMISTRY METHOD 06/14/2024 9:09 PM EST [facility] Mean Bld Glu Estim. 123 mg/dL LAB CHEMISTRY METHOD 06/14/2024 9:09 PM EST [facility] Blood Venous blood specimen / Unknown Venipuncture / Unknown 06/14/2024 11:21 AM EST 06/14/2024 12:32 PM EST us Joanie Rojas MD LAB BLOOD ORDERABLES Final Res ult [facility] [address] [place] [address], * BELLA DEXA AXIAL SKELETON (11/02/2022 11:26 AM EDT) Anatomical Region Laterality Modality Mammography 11/02/2022 10:2 7 AM EDT Narrative 11/02/2022 11:26 AM EDT [facility] Diagnostic Imaging Department [address] [place] [address] Patient: YOUNG WHITEO.B./Age/Sex: 1940 - 82 - F Unit#: [id number] Location/Status: SPDIMAM/REG CLI Mnemonic/Ordering Site: MAMDEXAAX/SPMAM Ordering Physician: JOANIE ROJAS MD Bella Dexa Axial Skeleton - 11/02/221051 HISTORY: The patient is an 82-year-old postmenopausal female with clinical concern for metabolic bone disease. FINDINGS: Dual [...] 91% of that of age matched controls. This yields a T-score of -2.9 and a [...] probability of hip fracture of 16.5%. Code 98264 Dictating Physician: FRANCES QUINN MD Electronically Signed by: FRANCES QUINN MD Dic Date/Time: 11/02/221123 Sign date/Time: 11/02/221125 Procedure Note Frances Quinn MD - 07/28/2023 [facility] Diagnostic Imaging Department [address] [place] [address] Patient: YOUNG WHITE Mabel/Age/Sex: 1940 - 82 - F Unit#: [id number] [facility]/Ordering Site: MAMDEXAAX/SPMAM Ordering Physician: JOANIE ROJAS MD [facility] Dexa Axial Skeleton - 11/02/22 - 1052 HISTORY: The patient is an 82-year-old postmenopausal [...] density of the femurs bilaterally is 0.647 gm/yn6rbnpx is 64% of that of young normals [...] probability of hip fracture of 16.5%. Code 46127 Dictating Physician: FRANCES QUINN MD Electronically Signed by: FRANCES QUINN MD Dic Date/Time: 11/02/22 1124 Sign date/Time: 11/02/22 1126 Joanie Rojas MD IMG BI PROCEDURES Final Result from Last 3 Months or Most Recently Relevant to Health Maintenance Insurance MEDICARE MEDICAID - [place] Advance Directives Documents on File Type Date Recorded Patient Pipelines Supervisor Expl anation DNR (Do Not Resuscitate) 02/06/2025 2:05 PM DNR Advance Directives and Living Will 10/17/2024 10:20 [...] Care Decision (hx) 05/03/2021 AD YEE DIRECTIVE * Full Code - Default (Latest Code Status on File) Date Activated Date Inactivated Comments 02/04/2025 3:13 PM 02/05/2025 4:54 PM This is orde r is used when code status has not been discussed with the patient, or code status is otherwise unknown/unconfirmed To update the patient's code status, place a code status order. Do not modify or discontinue any currently active code status orders. * Full Code - Default Date Activated Date Inactivated Comments 02/04/2025 9:51 AM 02/04/2025 3:13 PM This is orde r is used when code status has not been discussed with the patient, or code status is otherwise unknown/unconfirmed To update the patient's code status, place a code status order. Do not modify or discontinue any currently active code status orders. Care Teams Chart Collector Relationship Specialty Start Date End Date Joanie Rojas MD [address] [place] [address] PCP - General Internal Medicine 06/14/24
--- OUTSIDE RECORDS SUMMARY | 2025-06-10 18:09 | XMS_ITS ---
Author Organization [facility] Address [address] [place] [address] Phone Care Team Providers Care Railroad Wheels And Axle Inspector Name Role Phone Moshe Snider MD Primary Care Provider [phone] Active Problems Problem Noted Date Diagnosed Date [...] & Plan (03/06/2025 10:46 AM EDT): Ms. Michaels is an 84 year old female who [...] (10/08/2024): DX:Vocal cord paralysis Mitral valve disease Current Treatment and Therapy Plans OUTPATIENT TRANSFUSION (PRN)* Plan Start Date:05/29/2025 Plan Provider:Rubens Bradlye MD Linked Problems CLL (chronic lymphocytic patricia kemia) ([facility] V24, [facility] V28) Treatment Medications No medications scheduled. Past Treatment and Therapy Plans No past plan information found. Lifetime Dose Tracking * Chemical Lifetime Dose Automatic Entry Manual Entr y Fluoro Time 3.1 minutes 3.1 minutes 0 minutes Air Kerma 73.31 mGy 73.31 mGy 0 mGy Dose Area Product 11.78 mGy-cm2 11.78 mGy-cm2 0 mGy-cm 2
--- OUTSIDE RECORDS SUMMARY | 2025-06-10 18:09 | XMS_ITS | Patient Health Record ---
Author Organization [facility] Address [address] [place] [address] Care Team Providers Care Hygiene Coordinator Name Role Phone JOANIE ROJAS Primary Care Provider MERNA, NURSING [facility] [phone] Allergies Allergen (clinical drug ingredient) Drug/Non Drug Allergy documented on EMR Reaction Allergy Type Onset Date Status meperidine Demerol Rash/Itch Drug Allergy Active meperidine Meperidine HCl Unknown Drug Allergy A ctive acetaminophen / oxycodone Percocet Rash/Itch Drug Allergy Active metformin metFORMIN diarrhea Drug Allergy Active oxycodone oxyCODONE Unknown Drug Allergy Active Reason For Referral Reason New patient urgent a ppt please send Upper GI Pt losing weight/trouble eating Diagnosis 1 Large hiatal hernia (K44.9) Referral Organization [facility] Referring Provider First Name JOANIE Referring Provider Last Name [place] Referring Provider Speciality Internal edicine Referred Provider SERGE PIKE Referred Provider Specialty Thoracic Tania xander Referral Priority Urgent Reason 10/02/24 w appt stat Referral Organization [facility] Referring Provider First Name JOANIE Referring Provider Last Name [place] Referring Provider Speciality Internal M edicine Referred Provider BRANDON JACOBS Referred Provider Specialty Gastroentero logy General Notes Arlene ELLINGTON 04/2025 11:38:16 AM > DR WARNER, Can you please call Dr. Jacobs's office and request an urgent appointment. Patient had abnormal upper GI with questionable ulcer. Also large hiatal hernia. She is losing weight -we need to send a barium swallow ordered, Rebeca wrote:, Rebeca ELLINGTON CMA 10/02/2024 08:13:01 AM > [phone] office opens at 8:30 AM. I printed all relevant clinical records and manually faxed for STAT appointment with Dr. Jacobs or associate for this patient to [phone]. (removed high priority status from message) Referral Priority Routine Reason Urgent appt Heme + s tool, iron deficiency anemia Diagnosis 1 Other iron deficienc y anemia (D50.8) Referral Organization [facility] Referring Provider First Name JOANIE Referring Provider Last Name BOB Referring Provider Speciality Internal M edicine Referred Provider NORMA RIVERS Referred Provider Specialty Gastroentero logy Referral Priority Urgent Medications Medication SIG (Take, Route, Frequency, Duration) Notes Start Date End Date Status Incontinence Brief Medium Adult Depends, Medium Brief wear 6 times a day; Duration: 90 days Service Code/Modifier: [id number] 07/03/2024 Active traZODone HCl 50 MG Tablet 1 tablet at bedtime as needed Orally Once a day 09/06/2023 Active Mirtazapine 7.5 MG Tablet 1 tablets at bedtime Orally Once a day; Duration: 90 day(s) 07/26/2023 Active Pantoprazole Sodium 40 MG Tablet Delayed Release 1 tablet 1/2 to 1 hour before morning meal Orally Once a day; Duration: 90 days Active Multaq 400 MG Tablet TAKE ONE TABLET BY MOUTH TWICE A DAY WITH MEALS; Duration: 90 Active Rosuvastatin Calcium 5 MG Tablet 1 tab(s) orally once a day (at bedtime); Duration: 90 DAY(S) Active Bumetanide 0.5 MG Tablet 3 Tablets Orally Once a day Active Januvia 25 MG Tablet 1 tablet Orally Onc e a day Active Aspirin 81 81 MG Tablet Delayed Release 1 tablet Orally Once a day Active Ferrous Sulfate 325 (65 Fe) MG Tablet 1 tablet Orally Once a day Active Vitamin D 50 MCG (2000 UT) Capsule 1 capsule Orally Once a day Active Potassium Chloride ER 20 MEQ Tablet Extended Release 1 tablet with food Orally Once a day Active Calcium 600 MG Tablet 1 tablet with meal s Orally Twice a day Active Immunizations Vaccine Route Administration Date Status Comme nts Covid Unknown 03/25/2021 Administered Moderna COVID-19 mRNA LNP-S PF Unknown 07/21/2020 Administered Pfizer COVID-19,mRNA, LNP-S, PF, 30mcg/0.3mL dose Unknown 06/30/2020 Administered Pneumococcal Prevnar 13 Unknown 01/18/2017 Administered Pneumococcal, PPV 23 IM Intramuscular 04/17/2018 Administe red Zoster recombinant Unknown 12/24/2014 Administered Zoster recombinant Unknown 05/21/2018 Administered valentina slaughter Social History Tobacco Use: Social History Observation Description Date Details (start date - stop date) Former Smoker NA - NA Social History Drug/Alcohol: Social Info Question Answer Notes Alcohol Screen Did you have a drink containing alcohol in the past year? Yes How often did you have a drink containing alcohol in the past year? Monthly or less (1 point) How many drinks did you have on a tpical day when you were drinking in the past year? 1 or 2 (0 points) How often did you have six or more drinks on one occassion in the past year? Never (0 points) Points 1 Interpretation Negative Tobacco Use: Social Info Question Answer Notes Smoking Are you a: former smoker How long has it been since you last smoked? > 10 years Additional Details Category Social Info Options Details General Occupation: [employer], coordinator/packaging manager of [employer] asbestos exposure: no Past year's travels: none 2023 alcohol use: yes socially/couple per month drug use: no Hobbies/Exercise habits: none Coffee/Tea/Soda: yes Coffee 1 QD, Te a Occ Marital Status single experience no Living with alone Pets none smokers in household no Problems Problem Type SNOMED Code ICD Code Onset Dates Problem Status W/U Status Risk Notes Problem Essential hypertension (91327587) Essential hypertension (I10) Active confirmed Problem Essential hypertension (08490476) Essential (primary) hypertension (I10) Active confirmed Problem Paroxysmal atrial fibrillation (135284682) Paroxysmal atrial fibrillation (I48.0) Active confirmed Problem Vitamin D deficiency (21858426) Vitamin D deficiency, unspecified (E55.9) Active confirmed Problem Multinodular goiter (185015122) Multinodular goiter (E04.2) Active confirmed Problem Primary insomnia (1858541) Primary insomnia (F51.01) Active confirmed Problem Malnutrition of mild degree (Velasquez: 75% to less than 90% of standard weight) (26789841) Mild protein-calorie malnutrition (E44.1) Active confirmed Problem Mixed hyperlipidemia (183786425) Mixed hyperlipidemia (E78.2) Active confirmed Problem Hypocalcemia (8095947) Hypocalcemia (E83.51) Active confirmed Problem Insomnia (677718594) Other insomnia (G47.09) Active confirmed Problem Irritable bowel syndrome with diarrhea (438369990) Irritable bowel syndrome with diarrhea (K58.0) Active confirmed Problem Obstructive sleep apnea syndrome (40628124) Obstructive sleep apnea syndrome (G47.33) Active confirmed Problem Iron deficiency anemia due to chronic blood loss (504204829) Iron deficiency anemia due to chronic blood loss (D50.0) Active confirmed Problem Iron deficiency anemia (82987538) Other iron deficiency anemia (D50.8) Active confirmed Problem Obese class II (396970272896947) BMI 37.0-37.9, adult (Z68.37) Active confirmed Problem Anemia (540888188) Mild anemia (D64.9) Active confirmed Problem 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 Problem Type 2 diabetes mellitus (54562696) Type 2 diabetes mellitus (E11.9) Active confirmed Problem Chronic diastolic heart failure (608940404) Diastolic CHF, chronic (I50.32) Active confirmed Problem Dysphagia (85260690) Dysphagia, unspecified type (R13.10) Active confirmed Problem Iron deficiency anemia (33506484) Iron deficiency anemia, unspecified iron deficiency anemia type (D50.9) Active confirmed Problem Insomnia (654939890) Insomnia, unspecified type (G47.00) Active confirmed Problem Gastroesophageal reflux disease (disorder) (659718114) Chronic GERD (K21.9) Active confirmed Problem Chronic lymphoid leukemia, disease (80540428) CLL (chronic lymphocytic leukemia) (C91.10) Active confirmed Problem Chronic venous insufficiency (07704233) Chronic venous insufficiency (I87.2) Active confirmed Problem Type II diabetes mellitus without complication (118298263) Type 2 diabetes mellitus without complication, without long-term current use of insulin (E11.9) Active confirmed Problem Protein malnutrition (70343039) Protein malnutrition (E46) Active confirmed Problem Age-related osteoporosis (764403041) Age related osteoporosis, unspecified pathological fracture presence (M81.0) Active confirmed Problem Seasonal allergic rhinitis (038954223) Seasonal allergic rhinitis, unspecified trigger (J30.2) Active confirmed Problem Chronic atrial fibrillation (disorder) (046786327) Chronic a-fib (I48.20) Active confirmed Vital Signs Blood pressure diastolic 64 mm Hg 04/22/2025 Height 59.5 in 04/22/2025 Blood pressure systolic 116 mm Hg 04/22/2025 Weight 112.6 lbs 04/22/2025 BMI 22.36 kg/m2 04/22/2025 Encounters Encounter Location Date Provider Diagnosis [place] [id number] 08/29/2024 [facility] Diastolic CHF, chron ic I50.32 ; Acute cough R05.1 ; Type 2 diabetes mellitus E11.9 ; Paroxysmal atrial fibrillation I48.0 ; Mild protein-calorie malnutrition E44.1 ; Iron deficiency anemia, unspecified iron deficiency anemia type D50.9 ; Large hiatal hernia K44.9 ; Dysphagia, unspecified type R13.10 and Primary insomnia F51.01 [place] [id number] 10/10/2024 [facility] Medicare annual wellness visit, subsequent Z00.00 [place] [id number] 10/10/2024 [facility] Paraesophageal herni a K44.9 ; CLL (chronic lymphocytic leukemia) C91.10 ; Type 2 diabetes mellitus E11.9 ; Protein malnutrition E46 and Seasonal allergic rhinitis, unspecified trigger J30.2 [place] [id number] 12/04/2024 [facility] Paraesophageal herni a K44.9 ; Mild protein-calorie malnutrition E44.1 ; Essential (primary) hypertension I10 and Paroxysmal atrial fibrillation I48.[address] [phone] 02/20/2025 [facility] Acute UTI N39.0 ; Paraesophageal hernia K44.9 ; CLL (chronic lymphocytic leukemia) C91.10 ; Mild anemia D64.9 and Tachycardia R00.0 [place] [id number] 02/21/2025 [facility] Chronic a-fib I48.20 [place] [id number] 03/24/2025 [facility] Iron deficiency anem ia due to chronic blood loss D50.0 ; Type 2 diabetes mellitus without complication, without long-term current use of insulin E11.9 ; Paroxysmal atrial fibrillation I48.0 ; Obstructive sleep apnea syndrome G47.33 ; Diastolic CHF, chronic I50.32 and Ventral hernia without obstruction or gangrene K43.9 [facility] [address] [place] [address] 04/22/2025 [facility] Iron deficiency anemia, unspecified iron deficiency anemia type D50.9 ; Type 2 diabetes mellitus E11.9 ; Paroxysmal atrial fibrillation I48.0 and Insomnia, unspecified type G47.00 [facility] [address] [place] [phone] 06/15/2024 [facility] [address] [place] [phone] 07/03/2024 [facility] [address] [place] [phone] 10/01/2024 [facility] [address] [place] [phone] 10/01/2024 [facility] Large hiatal hernia K44.9 [facility] [address] [place] [phone] 10/01/2024 [facility] [address] [place] [phone] 10/10/2024 [facility] [address] [place] [phone] 10/21/2024 [facility] [address] [place] [phone] 10/22/2024 [facility] [address] [place] [phone] 10/22/2024 [facility] [address] [place] [phone] 11/20/2024 [facility] [address] [place] [phone] 12/10/2024 [facility] [address] [place] [phone] 01/14/2025 JOANIE BOB [facility] [address] [place] [address] 02/10/2025 [facility] [address] [place] [phone] 02/20/2025 JOANIE [place] Tachycardia R00.0 [facility] [address] [place] [phone] 02/25/2025 [facility] [address] [place] [phone] 03/03/2025 JOANIE [place] Type 2 diabetes mellitus without complication, without long-term current use of insulin E11.9 [facility] [address] [place] [phone] 03/03/[address] [phone] 03/24/[address] [address] 03/25/[address] [address] 03/25/2025 JOANIE [place] Other iron deficienc y anemia D50.[address] [phone] 03/25/2025 [facility] CLL (chronic lymphocytic leukemia) C91.[address] [address] 04/07/[address] [phone] 04/15/2025 [facility] [address] [address] 04/22/2025 [facility] [address] [address] 04/23/[address] [address] 04/23/[address] [address] 10/10/2024 JOANIE CASILLASFORD Assessments Encounter Date Diagnosis (ICD Code) Assessment Notes Treatment Notes Treatment Clinical Notes Section Notes 10/01/2024 Large hiatal hernia (ICD-10 - K44.9) 10/10/2024 Medicare annual wellness visit, subsequent (ICD-10 - Z00.00) AWV form reviewed with pt 03/24/2025 Type 2 diabetes mellitus without complication, without long-term current use of insulin (ICD-10 - E11.9) 1. Iron deficiency anemia: Will update CBC today. Will likely need GI follow-up 2. Type 2 diabetes mellitus: Will update A1c on current Januvia. #3 paroxysmal atrial fibrillation: No obvious recurrence. She is status post watchman so is off anticoagulation. She is tolerating Multaq 4. Obstructive sleep apnea: Wearing her CPAP faithfully with good effect. Will continue 5. Chronic diastolic congestive heart failure: Will check a proBNP. Volume status appears euvolemic. I suspect her mild shortness of breath may be related to anemia 6. Ventral hernia: Agree with surgery that no need to repair unless becomes symptomatic. Will follow closely and she knows to seek care should she develop any sudden pain or hardening 03/25/2025 Other iron deficiency anemia (ICD-10 - D50.8) 03/25/2025 CLL (chronic lymphocytic leukemia) (ICD-10 - C91.10) 04/22/2025 Type 2 diabetes mellitus (ICD-10 - E11.9) 1. Iron deficiency anemia: Will recheck CBC on iron supplementation today. Stool cards were positive earlier this fall. They are still trying to get her an updated GI appointment. Question needs updated endoscopies 2. Type 2 diabetes mellitus: A1c was stable at 6.1 on current Januvia. Will maintain same 3. Paroxysmal atrial fibrillation: No obvious recurrence on Multaq. She is status post watchman and does not need anticoagulation 4. Insomnia: Stable with periodic trazodone use. Will continue same 04/22/2025 Iron deficiency anemia, unspecified iron deficiency anemia type (ICD-10 - D50.9) 1. Iron deficiency anemia: Will recheck CBC on iron supplementation today. Stool cards were positive earlier this fall. They are still trying to get her an updated GI appointment. Question needs updated endoscopies 2. Type 2 diabetes mellitus: A1c was stable at 6.1 on current Januvia. Will maintain same 3. Paroxysmal atrial fibrillation: No obvious recurrence on Multaq. She is status post watchman and does not need anticoagulation 4. Insomnia: Stable with periodic trazodone use. Will continue same 03/24/2025 Iron deficiency anemia due to chronic blood loss (ICD-10 - D50.0) 1. Iron deficiency anemia: Will update CBC today. Will likely need GI follow-up 2. Type 2 diabetes mellitus: Will update A1c on current Junuvia. #3 paroxysmal atrial fibrillation: No obvious recurrence. She is status post watchman so is off anticoagulation. She is tolerating Multaq 4. Obstructive sleep apnea: Wearing her CPAP faithfully with good effect. Will continue 5. Chronic diastolic congestive heart failure: Will check a proBNP. Volume status appears euvolemic. I suspect her mild shortness of breath may be related to anemia 6. Ventral hernia: Agree with surgery that no need to repair unless becomes symptomatic. Will follow closely and she knows to seek care should she develop any sudden pain or hardening 03/03/2025 Type 2 diabetes mellitus without complication, without long-term current use of insulin (ICD-10 - E11.9) 02/21/2025 Chronic a-fib (ICD-10 - I48.20) ekg shows rapid afib will place holter today per PCP 02/20/2025 Tachycardia (ICD-10 - R00.0) 12/04/2024 Mild protein-calorie malnutrition (ICD-10 - E44.1) 1. 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 She will contact cardiology for additional clearance 2. Malnutrition: She is working with nutrition on trying to increase her protein intake in the setting of swallowing difficulties 3. Hypertension: Well-controlled on present therapy. No changes made today 4. Paroxysmal atrial fibrillation: Stable on Multaq. Status post Watchman so does not need anticoagulation 12/04/2024 Paraesophageal hernia (ICD-10 - K44.9) 1. 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 She will contact cardiology for additional clearance 2. Malnutrition: She is working with nutrition on trying to increase her protein intake in the setting of swallowing difficulties 3. Hypertension: Well-controlled on present therapy. No changes made today 4. Paroxysmal atrial fibrillation: Stable on Multaq. Status post Watchman so does not need anticoagulation 08/29/2024 Diastolic CHF, chronic (ICD-10 - I50.32) 1. Acute cough: Will treat for bronchitis with doxycycline and Tessalon Perles 2. Chronic diastolic CHF: Stable volume status on current medication. No changes made today 3. Diabetes: A1c's have been low since she has had significant weight loss. Emphasized does not need to restrict sugar though significantly at present given her struggles with weight. 4. Paroxysmal atrial fibrillation: Stable post Watchman procedure on Multaq. No obvious recurrence 5. Protein calorie malnutrition: Patient is losing weight in the setting of probable worsening of hiatal hernia. Will update a barium swallow and then arrange GI follow-up. 6. Insomnia: Trazodone renewed today 08/29/2024 Acute cough (ICD-10 - R05.1) 1. Acute cough: Will treat for bronchitis with doxycycline and Tessalon Perles 2. Chronic diastolic CHF: Stable volume status on current medication. No changes made today 3. Diabetes: A1c's have been low since she has had significant weight loss. Emphasized does not need to restrict sugar though significantly at present given her struggles with weight. 4. Paroxysmal atrial fibrillation: Stable post Watchman procedure on Multaq. No obvious recurrence 5. Protein calorie malnutrition: Patient is losing weight in the setting of probable worsening of hiatal hernia. Will update a barium swallow and then arrange GI follow-up. 6. Insomnia: Trazodone renewed today 02/20/2025 Paraesophageal hernia (ICD-10 - K44.9) 1. Paraesophageal hernia: Well-healed postsurgery. Doing well with advancing diet. Emphasized the importance of hydration 2. UTI: Will recheck urine today. This will also allow us to look for any hematuria as the source of spotting. 3. Chronic lymphocytic leukemia. Will update CBC 4. Mild anemia postop: With spotting we will check stool cards to look for any evidence of rectal bleeding. 4. Mild tachycardia: Suspect may be hydration related. Will check labs but also encouraged to push fluids 02/20/2025 Acute UTI (ICD-10 - N39.0) 1. Paraesophageal hernia: Well-healed postsurgery. Doing well with advancing diet. Emphasized the importance of hydration 2. UTI: Will recheck urine today. This will also allow us to look for any hematuria as the source of spotting. 3. Chronic lymphocytic leukemia. Will update CBC 4. Mild anemia postop: With spotting we will check stool cards to look for any evidence of rectal bleeding. 4. Mild tachycardia: Suspect may be hydration related. Will check labs but also encouraged to push fluids 10/10/2024 CLL (chronic lymphocytic leukemia) (ICD-10 - C91.10) 1. Paraesophageal hernia: Will schedule thoracic surgery consultation which will be needed post endoscopy. Await further guidance from GI 2. CLL: She sees next week. Will update CBC at [facility] for him 3. Type 2 diabetes mellitus: A1c was 5.9. Will trial stopping Januvia. She will follow her blood sugars closely at home 4. Protein malnutrition: She is making progress with using supplements and making smoothies. I gave her some protein bars to try today. Stressed the importance of ongoing efforts in this regard 10/10/2024 Paraesophageal hernia (ICD-10 - K44.9) 1. Paraesophageal hernia: Will schedule thoracic surgery consultation which will be needed post endoscopy. Await further guidance from GI 2. CLL: She sees next week. Will update CBC at [facility] for him 3. Type 2 diabetes mellitus: A1c was 5.9. Will trial stopping Januvia. She will follow her blood sugars closely at home 4. Protein malnutrition: She is making progress with using supplements and making smoothies. I gave her some protein bars to try today. Stressed the importance of ongoing efforts in this regard 10/10/2024 Type 2 diabetes mellitus (ICD-10 - E11.9) 1. Paraesophageal hernia: Will schedule thoracic surgery consultation which will be needed post endoscopy. Await further guidance from GI 2. CLL: She sees next week. Will update CBC at [facility] for him 3. Type 2 diabetes mellitus: A1c was 5.9. Will trial stopping Januvia. She will follow her blood sugars closely at home 4. Protein malnutrition: She is making progress with using supplements and making smoothies. I gave her some protein bars to try today. Stressed the importance of ongoing efforts in this regard 02/20/2025 CLL (chronic lymphocytic leukemia) (ICD-10 - C91.10) 1. Paraesophageal hernia: Well-healed postsurgery. Doing well with advancing diet. Emphasized the importance of hydration 2. UTI: Will recheck urine today. This will also allow us to look for any hematuria as the source of spotting. 3. Chronic lymphocytic leukemia. Will update CBC 4. Mild anemia postop: With spotting we will check stool cards to look for any evidence of rectal bleeding. 4. Mild tachycardia: Suspect may be hydration related. Will check labs but also encouraged to push fluids 08/29/2024 Type 2 diabetes mellitus (ICD-10 - E11.9) 1. Acute cough: Will treat for bronchitis with doxycycline and Tessalon Perles 2. Chronic diastolic CHF: Stable volume status on current medication. No changes made today 3. Diabetes: A1c's have been low since she has had significant weight loss. Emphasized does not need to restrict sugar though significantly at present given her struggles with weight. 4. Paroxysmal atrial fibrillation: Stable post Watchman procedure on Multaq. No obvious recurrence 5. Protein calorie malnutrition: Patient is losing weight in the setting of probable worsening of hiatal hernia. Will update a barium swallow and then arrange GI follow-up. 6. Insomnia: Trazodone renewed today 12/04/2024 Essential (primary) hypertension (ICD-10 - I10) 1. 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 She will contact cardiology for additional clearance 2. Malnutrition: She is working with nutrition on trying to increase her protein intake in the setting of swallowing difficulties 3. Hypertension: Well-controlled on present therapy. No changes made today 4. Paroxysmal atrial fibrillation: Stable on Multaq. Status post Watchman so does not need anticoagulation 04/22/2025 Paroxysmal atrial fibrillation (ICD-10 - I48.0) 1. Iron deficiency anemia: Will recheck CBC on iron supplementation today. Stool cards were positive earlier this fall. They are still trying to get her an updated GI appointment. Question needs updated endoscopies 2. Type 2 diabetes mellitus: A1c was stable at 6.1 on current Januvia. Will maintain same 3. Paroxysmal atrial fibrillation: No obvious recurrence on Multaq. She is status post watchman and does not need anticoagulation 4. Insomnia: Stable with periodic trazodone use. Will continue same 03/24/2025 Paroxysmal atrial fibrillation (ICD-10 - I48.0) 1. Iron deficiency anemia: Will update CBC today. Will likely need GI follow-up 2. Type 2 diabetes mellitus: Will update A1c on current Januvia. #3 paroxysmal atrial fibrillation: No obvious recurrence. She is status post watchman so is off anticoagulation. She is tolerating Multaq 4. Obstructive sleep apnea: Wearing her CPAP faithfully with good effect. Will continue 5. Chronic diastolic congestive heart failure: Will check a proBNP. Volume status appears euvolemic. I suspect her mild shortness of breath may be related to anemia 6. Ventral hernia: Agree with surgery that no need to repair unless becomes symptomatic. Will follow closely and she knows to seek care should she develop any sudden pain or hardening 03/24/2025 Obstructive sleep apnea syndrome (ICD-10 - G47.33) 1. Iron deficiency anemia: Will update CBC today. Will likely need GI follow-up 2. Type 2 diabetes mellitus: Will update A1c on current Januvia. #3 paroxysmal atrial fibrillation: No obvious recurrence. She is status post watchman so is off anticoagulation. She is tolerating Multaq 4. Obstructive sleep apnea: Wearing her CPAP faithfully with good effect. Will continue 5. Chronic diastolic congestive heart failure: Will check a proBNP. Volume status appears euvolemic. I suspect her mild shortness of breath may be related to anemia 6. Ventral hernia: Agree with surgery that no need to repair unless becomes symptomatic. Will follow closely and she knows to seek care should she develop any sudden pain or hardening 04/22/2025 Insomnia, unspecified type (ICD-10 - G47.00) 1. Iron deficiency anemia: Will recheck CBC on iron supplementation today. Stool cards were positive earlier this fall. They are still trying to get her an updated GI appointment. Question needs updated endoscopies 2. Type 2 diabetes mellitus: A1c was stable at 6.1 on current Januvia. Will maintain same 3. Paroxysmal atrial fibrillation: No obvious recurrence on Multaq. She is status post watchman and does not need anticoagulation 4. Insomnia: Stable with periodic trazodone use. Will continue same 12/04/2024 Paroxysmal atrial fibrillation (ICD-10 - I48.0) 1. 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 She will contact cardiology for additional clearance 2. Malnutrition: She is working with nutrition on trying to increase her protein intake in the setting of swallowing difficulties 3. Hypertension: Well-controlled on present therapy. No changes made today 4. Paroxysmal atrial fibrillation: Stable on Multaq. Status post Watchman so does not need anticoagulation 08/29/2024 Paroxysmal atrial fibrillation (ICD-10 - I48.0) 1. Acute cough: Will treat for bronchitis with doxycycline and Tessalon Perles 2. Chronic diastolic CHF: Stable volume status on current medication. No changes made today 3. Diabetes: A1c's have been low since she has had significant weight loss. Emphasized does not need to restrict sugar though significantly at present given her struggles with weight. 4. Paroxysmal atrial fibrillation: Stable post Watchman procedure on Multaq. No obvious recurrence 5. Protein calorie malnutrition: Patient is losing weight in the setting of probable worsening of hiatal hernia. Will update a barium swallow and then arrange GI follow-up. 6. Insomnia: Trazodone renewed today 02/20/2025 Mild anemia (ICD-10 - D64.9) 1. Paraesophageal hernia: Well-healed postsurgery. Doing well with advancing diet. Emphasized the importance of hydration 2. UTI: Will recheck urine today. This will also allow us to look for any hematuria as the source of spotting. 3. Chronic lymphocytic leukemia. Will update CBC 4. Mild anemia postop: With spotting we will check stool cards to look for any evidence of rectal bleeding. 4. Mild tachycardia: Suspect may be hydration related. Will check labs but also encouraged to push fluids 10/10/2024 Protein malnutrition (ICD-10 - E46) 1. Paraesophageal hernia: Will schedule thoracic surgery consultation which will be needed post endoscopy. Await further guidance from GI 2. CLL: She sees next week. Will update CBC at [facility] for him 3. Type 2 diabetes mellitus: A1c was 5.9. Will trial stopping Januvia. She will follow her blood sugars closely at home 4. Protein malnutrition: She is making progress with using supplements and making smoothies. I gave her some protein bars to try today. Stressed the importance of ongoing efforts in this regard 10/10/2024 Seasonal allergic rhinitis, unspecified trigger (ICD-10 - J30.2) 1. Paraesophageal hernia: Will schedule thoracic surgery consultation which will be needed post endoscopy. Await further guidance from GI 2. CLL: She sees next week. Will update CBC at [facility] for him 3. Type 2 diabetes mellitus: A1c was 5.9. Will trial stopping Januvia. She will follow her blood sugars closely at home 4. Protein malnutrition: She is making progress with using supplements and making smoothies. I gave her some protein bars to try today. Stressed the importance of ongoing efforts in this regard 02/20/2025 Tachycardia (ICD-10 - R00.0) 1. Paraesophageal hernia: Well-healed postsurgery. Doing well with advancing diet. Emphasized the importance of hydration 2. UTI: Will recheck urine today. This will also allow us to look for any hematuria as the source of spotting. 3. Chronic lymphocytic leukemia. Will update CBC 4. Mild anemia postop: With spotting we will check stool cards to look for any evidence of rectal bleeding. 4. Mild tachycardia: Suspect may be hydration related. Will check labs but also encouraged to push fluids 08/29/2024 Mild protein-calorie malnutrition (ICD-10 - E44.1) 1. Acute cough: Will treat for bronchitis with doxycycline and Tessalon Perles 2. Chronic diastolic CHF: Stable volume status on current medication. No changes made today 3. Diabetes: A1c's have been low since she has had significant weight loss. Emphasized does not need to restrict sugar though significantly at present given her struggles with weight. 4. Paroxysmal atrial fibrillation: Stable post Watchman procedure on Multaq. No obvious recurrence 5. Protein calorie malnutrition: Patient is losing weight in the setting of probable worsening of hiatal hernia. Will update a barium swallow and then arrange GI follow-up. 6. Insomnia: Trazodone renewed today 03/24/2025 Diastolic CHF, chronic (ICD-10 - I50.32) 1. Iron deficiency anemia: Will update CBC today. Will likely need GI follow-up 2. Type 2 diabetes mellitus: Will update A1c on current Januvia. #3 paroxysmal atrial fibrillation: No obvious recurrence. She is status post watchman so is off anticoagulation. She is tolerating Multaq 4. Obstructive sleep apnea: Wearing her CPAP faithfully with good effect. Will continue 5. Chronic diastolic congestive heart failure: Will check a proBNP. Volume status appears euvolemic. I suspect her mild shortness of breath may be related to anemia 6. Ventral hernia: Agree with surgery that no need to repair unless becomes symptomatic. Will follow closely and she knows to seek care should she develop any sudden pain or hardening 03/24/2025 Ventral hernia without obstruction or gangrene (ICD-10 - K43.9) 1. Iron deficiency anemia: Will update CBC today. Will likely need GI follow-up 2. Type 2 diabetes mellitus: Will update A1c on current Januvia. #3 paroxysmal atrial fibrillation: No obvious recurrence. She is status post watchman so is off anticoagulation. She is tolerating Multaq 4. Obstructive sleep apnea: Wearing her CPAP faithfully with good effect. Will continue 5. Chronic diastolic congestive heart failure: Will check a proBNP. Volume status appears euvolemic. I suspect her mild shortness of breath may be related to anemia 6. Ventral hernia: Agree with surgery that no need to repair unless becomes symptomatic. Will follow closely and she knows to seek care should she develop any sudden pain or hardening 08/29/2024 Iron deficiency anemia, unspecified iron deficiency anemia type (ICD-10 - D50.9) 1. Acute cough: Will treat for bronchitis with doxycycline and Tessalon Perles 2. Chronic diastolic CHF: Stable volume status on current medication. No changes made today 3. Diabetes: A1c's have been low since she has had significant weight loss. Emphasized does not need to restrict sugar though significantly at present given her struggles with weight. 4. Paroxysmal atrial fibrillation: Stable post Watchman procedure on Multaq. No obvious recurrence 5. Protein calorie malnutrition: Patient is losing weight in the setting of probable worsening of hiatal hernia. Will update a barium swallow and then arrange GI follow-up. 6. Insomnia: Trazodone renewed today 08/29/2024 Large hiatal hernia (ICD-10 - K44.9) 1. Acute cough: Will treat for bronchitis with doxycycline and Tessalon Perles 2. Chronic diastolic CHF: Stable volume status on current medication. No changes made today 3. Diabetes: A1c's have been low since she has had significant weight loss. Emphasized does not need to restrict sugar though significantly at present given her struggles with weight. 4. Paroxysmal atrial fibrillation: Stable post Watchman procedure on Multaq. No obvious recurrence 5. Protein calorie malnutrition: Patient is losing weight in the setting of probable worsening of hiatal hernia. Will update a barium swallow and then arrange GI follow-up. 6. Insomnia: Trazodone renewed today 08/29/2024 Dysphagia, unspecified type (ICD-10 - R13.10) 1. Acute cough: Will treat for bronchitis with doxycycline and Tessalon Perles 2. Chronic diastolic CHF: Stable volume status on current medication. No changes made today 3. Diabetes: A1c's have been low since she has had significant weight loss. Emphasized does not need to restrict sugar though significantly at present given her struggles with weight. 4. Paroxysmal atrial fibrillation: Stable post Watchman procedure on Multaq. No obvious recurrence 5. Protein calorie malnutrition: Patient is losing weight in the setting of probable worsening of hiatal hernia. Will update a barium swallow and then arrange GI follow-up. 6. Insomnia: Trazodone renewed today 08/29/2024 Primary insomnia (ICD-10 - F51.01) 1. Acute cough: Will treat for bronchitis with doxycycline and Tessalon Perles 2. Chronic diastolic CHF: Stable volume status on current medication. No changes made today 3. Diabetes: A1c's have been low since she has had significant weight loss. Emphasized does not need to restrict sugar though significantly at present given her struggles with weight. 4. Paroxysmal atrial fibrillation: Stable post Watchman procedure on Multaq. No obvious recurrence 5. Protein calorie malnutrition: Patient is losing weight in the setting of probable worsening of hiatal hernia. Will update a barium swallow and then arrange GI follow-up. 6. Insomnia: Trazodone renewed today Plan Of Treatment Pending Test Test Name Order Date EKG 02/20/2025 Glucose (fingerstick) NEW 08/10/2017 AST ( SGOT) 01/28/2021 ALT(DO NOT USE) 01/28/2021 GLYCOHEMOGLOBIN (HBA1C) 05/03/2022 AST ( SGOT) 05/03/2022 BASIC METABOLIC PANEL 05/03/2022 TSH WITH REFLEX TO FT4 05/03/2022 ALT (SGPT) 05/03/2022 Future Test Test Name Order Date BASIC METABOLIC PANEL 03/16/2023 CBC (COMPLETE BLOOD COUNT) WITH DIFF Comp. Metabolic Panel [id number] 2023 Comp. Metabolic Panel [id number] 2023 Comp. Metabolic Panel [id number] 2023 GI Profile, Stool, [id number] 12/19/2023 Next Appt Details Provider Name:JOANIE East BOB , 06/16/2025 03:00:00 PM, [address] [place], [address], Insurance Providers Payer Name Payer Address Payer Phone Subscriber Number Group Number Insured Name Patient Relationship to Insured Coverage Start Date Coverage End Date MEDICARE [employer] 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 Serge rowland 02/04/25 Watchman Procedure 2023 Large gallbladder stone removed 2021 cardioversion 09/2020 cardioversion 05/2020 cardiac partial ablation /cardioversion 07/04/2019 Both Eyes Cataract Surgery/Dr. Quach 04/2014 hammertoe left foot 08/13/13 radius inj. left vocal cord 02/01/13 radius inj. left vocal cord 05/04/12 Arthroscopy R Knee Torn Meniscus/Piece o f [place] Removed 05/2011 Hammer Toe Surgery R Foot 03/2009 Arthroscopic Surgery R Knee Arthroscopic Surgery L Knee 1989' Bunionectomy R Foot 1996 Bunionectomy L Foot 1994 Partial Hysterectomy 1975 Appendectomy 1969 Tonsillectomy/Adenoidectomy 1940's Hospitalization History Reason Date(Month/Year) ablation at [facility] 01/04/21 [facility] pt fell 3 pelvic fractures 08/2019 [facility] - Right rotator cuff [facility]- AFIB - pneumonia left lobe 11/22-11/30 As Above
== END 2025-06-10 14:00 | disposition home or self-care (01) ==
LOC: HO.HAP 13:59
PROVIDERS: Visit Provider Internal Medicine
DX: H90.3 Sensorineural hearing loss, bilateral (principal)
CPT/HCPCS: 92593; 99499

== ENCOUNTER 2025-06-10 14:24 | Outpatient (REF) | payer SELFPAY | END 2025-06-10 14:25 | disposition home or self-care (01) | LOC: HO.HAP 14:24 | PROVIDERS: Visit Provider Internal Medicine | DX: Z46.1 Encounter for fitting and adjustment of hearing aid (principal); Z90.3 Acquired absence of stomach [part of] | CPT/HCPCS: V5267 ==